=== PATIENT | male | born 1950 | race African-American/Black ===

== ENCOUNTER 2016-03-28 05:42 | Emergency (ER) | payer OTHER ==
[~2016-03-28] VITALS: Ht 182.9 cm; Wt 142.0 kg
[~2016-03-28 05:42] MED LIST: ATEN50TA PO; ATOR20TA38 PO; COU1 PO; FURO20TA3 PO; HYDR-902 PO; METH10TA2 PO; NIFE60TA12 PO; OMEP20CA16 PO; SENN-53 PO; TOPI-25 PO; TRAM50TA2 PO; WARF1TAB47 PO; WARF5TAB72 PO
[2016-03-28 05:50] VITALS: Ht 182.9 cm; Wt 142.0 kg
[2016-03-28] MEDS ORDERED: SOD CHLORIDE 0.9% 1,000 ML IV STA (07:11)
[2016-03-28] MEDS ORDERED: ONDANSETRON 4 MG INJ IV STA (07:11)
[2016-03-28] MEDS ORDERED: morphine 4 MG/ML VIAL IV STA (07:11)
--- NOTE | 2016-03-28 07:18 | ERD ---
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 Constipated for 1 day. No hematemesis or hematochezia. Denies dysuria, polyuria, hematuria or flank pain. No chest pain or palpitations. Denies shortness of breath or cough. No headache or neck pain. No relieving or exacerbating factors. No fevers or chills. ROS All systems reviewed and are negative except as per history of present illness. Medications Home Meds Active Scripts Tramadol HCl (Tramadol HCl) 50 Mg Tablet, 50 MG PO Q6 Y for PAIN, #20 TAB Prov:WILLIS PANTOJA MD 03/28/16 Metronidazole* (Flagyl*) 500 Mg Tablet, 500 MG PO QID for 10 Days, TAB Prov:WILLIS PANTOJA MD 03/28/16 Levofloxacin* (Levaquin*) 750 Mg Tablet, 750 MG PO DAILY for 10 Days, TAB Prov:WILLIS PANTOJA MD 03/28/16 Tramadol HCl (Tramadol HCl) 50 Mg Tablet, 50 MG PO TID for PAIN, #20 TAB Prov:BHARATI RASHID MD 02/07/16 Warfarin Sod (Coumadin) 1 Mg Tab, 1 MG PO DAILY, #30 TAB Prov:KM SON DO 01/16/16 Hydrocodone/Acetaminophen ([place] 10-325 Tablet) 1 Each Tablet, 1 TAB PO Q6H Y for PAIN, #7 TAB Prov:KM SON DO 01/16/16 Tramadol HCl (Tramadol HCl) 50 Mg Tablet, 50 MG PO BID, #12 TAB Prov:SHABBIR LANGLEY DO 01/11/16 Sennosides* (Senna Lax*) 8.6 Mg Tablet, 1 TAB PO BID for 10 Days, TAB Prov:SHABBIR LANGLEY DO 01/11/16 Reported Medications Warfarin Sodium* (Coumadin*) 1 Mg Tablet, 1 MG PO DAILY, TAB 01/16/16 Hydrocodone/Acetaminophen ([place] 10-325 Tablet) 1 Each Tablet, 1 EACH PO BID, TAB 01/09/16 Omeprazole* (Omeprazole*) 20 Mg Capsule.dr, 20 MG PO DAILY, #30 CAP 01/09/16 Topiramate* (Topiramate*) 100 Mg Tablet, 100 MG PO DAILY, TAB 01/09/16 Methadone Hcl* (Methadone*) 10 Mg Tab, 45 MG PO DAILY, TAB 08/05/15 Warfarin Sodium* (Coumadin*) 5 Mg Tablet, 5 MG PO DAILY, TAB 06/05/15 Nifedipine* (Nifedical XL*) 60 Mg/Bottle Tab.osm.24, 60 MG PO DAILY, TAB 05/15/14 Atorvastatin Calcium* (Atorvastatin Calcium*) 20 Mg Tablet, 20 MG PO HS, TAB 05/15/14 Furosemide* (Furosemide*) 20 Mg Tablet, 20 MG PO QAM, TAB 05/15/14 Atenolol* (Atenolol*) 50 Mg Tablet, 50 MG PO DAILY, TAB 05/15/14 Allergies Allergies: Coded Allergies: No Known Allergies (Verified Allergy, Mild, 01/16/16) PMhx/Soc Reviewed in chart. As per HPI. 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 Head: Atraumatic Eyes: Pupils equal reactive to light, extraocular movements are intact. Normal Conjunctiva ENT: Normal External Ears, Nose and Mouth. Neck: Full range of motion. Nontender. No JVD. No lymphadenopathy. Resp: Breath sounds are equal and clear to auscultation bilaterally. No rales rhonchi or wheezes Cardio: Regular rate and rhythm, no murmurs Abd: Soft, obese. Mild generalized tenderness that localizes to left lower quadrant. No rebound or guarding. No masses or abnormal pulsations. Bowel sounds are present. Skin: No petechiae or rashes Back: No midline or flank tenderness Ext: No cyanosis, or edema Neur: Awake and alert. Cranial nerves II through XII are grossly intact. No focal deficit observed. Psych: Patient appears anxious but not depressed. Result Diagram: 03/28/16 0958 03/28/16 0945 Results 24 hrs Laboratory Tests Test 03/28/16 08:27 03/28/16 09:45 03/28/16 09:58 Urine Bilirubin NEGATIVE Urine Clarity CLEAR Urine Color LT. YELLOW Urine Glucose NEGATIVE% Urine Hemoglobin NEGATIVE Urine Ketones NEGATIVE Urine Leukocyte Esterase NEGATIVE Urine Nitrite NEGATIVE Urine Specific [place] 1.010 Urine Total Protein NEGATIVE Urine Urobilinogen 0.2 E.U./dL Urine pH 7.0 Alanine Aminotransferase (ALT/SGPT) 25IU/L Albumin 3.4g/dl Albumin/Globulin Ratio 0.94 Alkaline Phosphatase 90IU/L Anion Gap 15 Aspartate Amino Transf (AST/SGOT) 15IU/L Blood Urea Nitrogen 14mg/dl Calcium Level 8.4mg/dl Carbon Dioxide Level 30mmol/L Chloride Level 101mmol/L Creatinine 1.04mg/dl Direct Bilirubin 0.00mg/dl Globulin 3.60g/dl Glucose Level 91mg/dl INR International Normalized Ratio 2.91 Indirect Bilirubin 0.0mg/dl Lipase 22U/L Potassium Level 3.5mmol/L Prothrombin Time 30.8Sec Prothrombin Time Ratio 2.4 Sodium Level 142mmol/L Total Bilirubin 0.0mg/dl Total Protein 7.0g/dl Basophils # 0.010^3/ul Basophils % 0.5% Blood Morphology Comment Eosinophils # 0.210^3/ul Eosinophils % 2.6% Hematocrit 29.8% Hemoglobin 10.0g/dl Lymphocytes # 2.410^3/ul Lymphocytes % 25.9% Mean Corpuscular Hemoglobin 25.0pg Mean Corpuscular Hemoglobin Concent 33.4g/dl Mean Corpuscular Volume 74.9fl Mean Platelet Volume 8.0fl Monocytes # 0.910^3/ul Monocytes % 10.1% Neutrophils # 5.710^3/ul Neutrophils % 60.9% Nucleated Red Blood Cells # 0.010^3/ul Nucleated Red Blood Cells % 0.0/100WBC Platelet Count 99109^3/UL Red Blood Count 3.9810^6/ul Red Cell Distribution Width 18.2% White Blood Count 9.310^3/ul Current Medications Medications (Trade) Dose Ordered Sig/Ash Route PRN Reason Start Time Stop Time Status Last Admin Dose Admin Sodium Chloride (NS) 1,000 ml @ 1,000 mls/hr Q1H STAT IV 03/28/16 07:11 03/28/16 08:10 DC 03/28/16 07:53 Morphine Sulfate (morphine) 4 mg ONCE STAT IV 03/28/16 07:11 03/28/16 07:13 DC 03/28/16 07:52 Ondansetron HCl (Zofran Inj) 4 mg ONCE STAT IV 03/28/16 07:11 03/28/16 07:13 DC 03/28/16 07:52 Levofloxacin (Levaquin) 750 mg ONCE ONCE PO 03/28/16 10:00 03/28/16 10:01 DC 03/28/16 10:19 Metronidazole (Flagyl) 500 mg ONCE ONCE PO 03/28/16 10:00 03/28/16 10:01 DC 03/28/16 10:19 IMAGING: PROCEDURE: CT Abdomen and Pelvis without contrast. CLINICAL INDICATION: Left lower quadrant pain. TECHNIQUE: CT scan of the abdomen and pelvis with and without contrast was performed on a multidetector high-resolution CT scanner. Coronal and sagittal reformatted images were obtained from the axial source images. The total exam CTDI equals 21.3 mGy and the total exam DLP equals 1333.4 mGy-cm. One or more of the following dose reduction techniques were utilized: Automated exposure control, adjustment of the mA and/or kV according to patient size, use of iterative reconstruction technique. COMPARISON: None. FINDINGS: CT abdomen: The lung bases are clear. The heart size is normal, without pericardial thickening or effusion. The liver is normal in size and density without focal mass or intrahepatic biliary dilatation. The eboni hepatis region is clear. The spleen is normal in size and homogeneous in density. The stomach is partially collapsed, but is grossly unremarkable. The pancreas as visualized is normal. The gallbladder surgically absent. No evidence of intra or extra hepatic biliary ductal dilatation. The adrenal glands are symmetric and normal. The kidneys demonstrate no parenchymal abnormality. No nephrolithiasis, hydronephrosis, or obstructive uropathy. The aorta is of normal caliber. Aortic vascular calcifications are present. There is no ascites, retroperitoneal, or mesenteric lymphadenopathy. The bowel and mesentery, as visualized, are equally unremarkable. CT pelvis: Normal appendix . Scattered sigmoid diverticulosis with tree surrounding soft tissue stranding in the proximal sigmoid colon suspicious for mild diverticulitis. No mural thickening, free fluid, or free air. The pelvic organs are normal. The pelvic sidewalls and inguinal regions are clear. No lymphadenopathy, free fluid , or mass. Bones: The surrounding osseous structures are remarkable for degenerative spondylosis of the spine. No osteolytic or osteoblastic lesion is detected. IMPRESSION: 1. Sigmoid diverticulosis with subtle rule. Colonic soft tissue stranding suspicious for mild early diverticulitis. No free air, free fluid or evidence of abscess. No bowel obstruction. 2. No lymphadenopathy, mass, ascites, 7 or obstructive uropathy. 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 IV access was difficult to obtain. CT without contrast reveals evidence of diverticulitis without abscess or perforation. No bowel obstruction, appendicitis or other acute intra-abdominal process. No criteria for systemic inflammatory response syndrome or sepsis. Stable for discharge with appropriate analgesics, oral antibiotics and urgent outpatient follow-up. Counseled patient regarding diagnostic workup, diagnosis and need for followup. Understands to return to ED if symptoms recur, worsen or any other concerns. Departure Diagnosis: Primary Impression: Acute abdominal pain in left lower quadrant Additional Impression: Acute diverticulitis Condition: Stable Patient Instructions: Diverticulitis, Understanding Diverticulosis and Diverticulitis WILLIS PANTOJA MD Mar 28, 2016 07:18
--- NOTE | 2016-03-28 09:23 | RADRPT ---
PROCEDURE: CT Abdomen and Pelvis without contrast. CLINICAL INDICATION: Left lower quadrant pain. TECHNIQUE: CT scan of the abdomen and pelvis with and without contrast was performed on a multidet bg high-resolution CT scanner. Coronal and sagittal reformatted images were obtained from the a xial source images. The total exam CTDI equals 21.3 mGy and the total exam DLP equals 1333.4 mGy-cm. One or more of the following dose reduction techniques were utilized: Automated exposure control, adjustment of the mA and/or kV according to patient size, use of iterative reconstruction technique. COMPARISON: None. FINDINGS: CT abdomen: The lung bases are clear. The heart size is normal, without pericardial thickening or effusion. Th e liver is normal in size and density without focal mass or intrahepatic biliary dilatation. The po rta hepatis region is clear. The spleen is normal in size and homogeneous in density. The stomach i s partially collapsed, but is grossly unremarkable. The pancreas as visualized is normal. The gallbladder surgically absent. No evidence of intra or extra hepatic biliary ductal dilatation. The adrenal glands are symmetric and normal. The kidneys demonstrate no parenchymal abnormality. No nephrolithiasis, hydronephrosis, or obstructi ve uropathy. The aorta is of normal caliber. Aortic vascular calcifications are present. There is no ascites, r etroperitoneal, or mesenteric lymphadenopathy. The bowel and mesentery, as visualized, are equally unremarkable. CT pelvis: Normal appendix . Scattered sigmoid diverticulosis with tree surrounding soft tissue stranding in the proximal sigmoid colon suspicious for mild diverticulitis. No mural thickening, free fluid, or free air. The pel ab organs are normal. The pelvic sidewalls and inguinal regions are clear. No lymphadenopathy, fr ee fluid, or mass. Bones: The surrounding osseous structures are remarkable for degenerative spondylosis of the spine. No ost eolytic or osteoblastic lesion is detected. IMPRESSION: 1. Sigmoid diverticulosis with subtle rule. Colonic soft tissue stranding suspicious for mild eva y diverticulitis. No free air, free fluid or evidence of abscess. No bowel obstruction. 2. No lymphadenopathy, mass, ascites, 7 or obstructive uropathy. RPTAT: PP J Port, Physician Date Time Electronically viewed and signed by Aleks Hankins Physician on 03/28/2016 09:23 JAKE/
[2016-03-28] MEDS ORDERED: LEVOFLOXACIN 750 MG TABLET PO ONE (10:00)
[2016-03-28] MEDS ORDERED: metroNIDAZOLE 500 MG TAB PO ONE (10:00)
[2016-03-28 10:14] LABS: BASOPHILS % 0.5 % (0.0-2.0); EOSINOPHILS # 0.2 10^3/ul (0.0-0.5); EOSINOPHILS % 2.6 % (0.0-7.0); HEMATOCRIT 29.8 % (42.0-52.0); LYMPHOCYTES # 2.4 10^3/ul (0.8-2.9); LYMPHOCYTES % 25.9 % (15.0-51.0); MEAN CORPUSCULAR HGB CONC 33.4 g/dl (32.0-37.0); MEAN CORPUSCULAR VOLUME 74.9 fl (82.0-101.0); MONOCYTE # 0.9 10^3/ul (0.3-0.9); MONOCYTES % 10.1 % (0.0-11.0); NEUTROPHIL # 5.7 10^3/ul (1.6-7.5); NEUTROPHILS % 60.9 % (39.0-77.0); PLATELET COUNT 299 10^3/UL (140-440); RED BLOOD COUNT 3.98 10^6/ul (4.70-6.10); RED CELL DISTRIBUTION WIDTH 18.2 % (11.5-14.5); UNCORRECTED WBC 9.3 10^3/ul (4.8-10.8); WHITE BLOOD COUNT 9.3 10^3/ul (4.8-10.8)
[2016-03-28 10:15] LABS: INR 2.91; PROTIME 30.8 Sec (12.2-14.2); PT RATIO 2.4
[2016-03-28 10:16] LABS: ADD UMIC NO; URINE BILIRUBIN (Dip) NEGATIVE (NEGATIVE); URINE BLOOD (Dip) NEGATIVE (NEGATIVE); URINE COLOR LT. YELLOW (YELLOW); URINE GLUCOSE (Dip) NEGATIVE (NEGATIVE); URINE KETONES (Dip) NEGATIVE (NEGATIVE); URINE LEUKOCYTE ESTERASE (Dip) NEGATIVE (NEGATIVE); URINE NITRITE (Dip) NEGATIVE (NEGATIVE); URINE TOTAL PROTEIN (Dip) NEGATIVE (NEGATIVE); URINE UROBILINOGEN (Dip) 0.2 E.U./dL (0.1-1.0)
[2016-03-28 10:18] LABS: ALBUMIN 3.4 g/dl (3.3-4.9); POTASSIUM 3.5 mmol/L (3.5-5.1)
[2016-03-28 10:19] LABS: CONDITION 1; LH ANALYZER COMMENTS 1
[2016-03-28 10:20] LABS: CREATININE 1.04 mg/dl (0.61-1.24)
[2016-03-28 10:21] LABS: ALBUMIN/GLOBULIN RATIO 0.94; CALCIUM 8.4 mg/dl (8.4-10.2)
[2016-03-28] MEDS ORDERED: TRAM50TA2 PO (10:25)
[2016-03-28] MEDS ORDERED: METR500T PO (10:25)
[2016-03-28] MEDS ORDERED: LEVO750T25 PO (10:25)
[2016-03-28] MEDS ORDERED: ONDA4TAB8 PO (10:31)
[2016-03-28 10:49] VITALS: BP 11/63; PULSE 78; RESP 16; TEMP 98.6
== END 2016-03-28 10:52 | disposition home or self-care (01) ==
LOC: E/R 05:42
DX: R10.32 Left lower quadrant pain (principal); I10 Essential (primary) hypertension; E11.9 Type 2 diabetes mellitus without complications; K57.92 Diverticulitis of intestine, part unspecified, without perforation or abscess without bleeding; F17.210 Nicotine dependence, cigarettes, uncomplicated; R11.0 Nausea; I50.9 Heart failure, unspecified; Z79.01 Long term (current) use of anticoagulants
CPT/HCPCS: 74176; 80053; 81003; 83690; 85025; 85610; J2270; J2405; J7030; Z7610; 96374; 96375

== ENCOUNTER 2016-04-02 20:47 | Inpatient (IN) | payer OTHER ==
[~2016-04-02] VITALS: Ht 182.9 cm; Wt 123.0 kg
[~2016-04-02 20:47] MED LIST changes: +LEVO750T25 PO; +METR500T PO; +ONDA4TAB8 PO; -WARF1TAB47 PO
[2016-04-02 21:19] VITALS: Ht 182.9 cm; Wt 123.0 kg
[2016-04-03] MEDS ORDERED: ONDANSETRON 4 MG INJ IV STA (05:41)
[2016-04-03] MEDS ORDERED: morphine 4 MG/ML VIAL IV STA (05:41)
--- NOTE | 2016-04-03 07:19 | RADRPT ---
PROCEDURE: Chest. CLINICAL INDICATION: Shortness of breath. TECHNIQUE: Single frontal view of the chest was obtained. COMPARISON: 09/21/2012. FINDINGS: The cardiac silhouette is magnified. The aortic arch is uncoiled. There is no focal consolidation, vascular congestion or pleural effusion. There is no pneumothorax. IMPRESSION: No evidence for active cardiopulmonary disease. .Casa Dent MD, Date Time Electronically viewed and signed by .Casa Detn MD, on 04/03/2016 07:19 .T/
[2016-04-03 07:48] LABS: ALBUMIN 3.4 g/dl (3.3-4.9)
[2016-04-03 07:49] LABS: POTASSIUM 3.6 mmol/L (3.5-5.1)
[2016-04-03 07:51] LABS: BILIRUBIN,INDIRECT 0.2 mg/dl (0-1.1); BILIRUBIN,TOTAL 0.2 mg/dl (0.2-1.3); CREATININE 1.43 mg/dl (0.61-1.24); TOTAL PROTEIN 6.8 g/dl (6.1-8.1)
[2016-04-03 07:52] LABS: CALCIUM 8.6 mg/dl (8.4-10.2)
[2016-04-03 07:54] LABS: BASOPHILS % 0.4 % (0.0-2.0); EOSINOPHILS % 1.8 % (0.0-7.0); HEMATOCRIT 33.8 % (42.0-52.0); HEMOGLOBIN 10.5 g/dl (14.0-18.0); LYMPHOCYTES % 25.9 % (15.0-51.0); MEAN CORPUSCULAR HEMOGLOBIN 24.7 pg (29.0-33.0); MEAN CORPUSCULAR HGB CONC 31.1 g/dl (32.0-37.0); MEAN CORPUSCULAR VOLUME 79.5 fl (82.0-101.0); MEAN PLATELET VOLUME 9.6 fl (7.4-10.4); MONOCYTES % 10.7 % (0.0-11.0); PLATELET COUNT 309 10^3/UL (140-440); RED BLOOD COUNT 4.25 10^6/ul (4.70-6.10); RED CELL DISTRIBUTION WIDTH 17.8 % (11.5-14.5); UNCORRECTED WBC 10.4 10^3/ul (4.8-10.8); WHITE BLOOD COUNT 10.4 10^3/ul (4.8-10.8)
[2016-04-03 07:55] LABS: EOSINOPHILS # 0.2 10^3/ul (0.0-0.5); LYMPHOCYTES # 2.7 10^3/ul (0.8-2.9); MONOCYTE # 1.1 10^3/ul (0.3-0.9); NEUTROPHIL # 6.4 10^3/ul (1.6-7.5)
[2016-04-03 08:03] LABS: TROPONIN-I 0.017 ng/ml (0.00-0.12)
--- NOTE | 2016-04-03 08:35 | ERA ---
ER Documentation Chief Complaint Date/Time DATE: 04/03/16 TIME: 08:32 Chief Complaint chest pain x 1 day, dizziness, diffuse abd pain HPI 65-year-old male presents to the emergency department with multiple complaints. He is a somewhat difficult historian. I have reviewed old records and the patient as well. Patient is a long-standing history of chronic intermittent abdominal pain. He states that he was seen a few days ago and diagnosed with early diverticulitis. He has been taking his antibiotics. Despite this, he continues to have abdominal pain. However, the abdominal pain is chronic. His new complaint is that he is having nonspecific discomfort in the left side of his chest. This is spontaneous, nonradiating, nonexertional described as moderate. ROS All systems reviewed and are negative except as per history of present illness. Medications Home Meds Active Scripts Ondansetron Hcl* (Zofran*) 4 Mg Tablet, 4 MG PO Q6H for NAUSEA AND/OR VOMITING, #15 TAB Prov:WILLIS PANTOJA MD 03/28/16 Tramadol HCl (Tramadol HCl) 50 Mg Tablet, 50 MG PO Q6 Y for PAIN, #20 TAB Prov:WILLIS PANTOJA MD 03/28/16 Metronidazole* (Flagyl*) 500 Mg Tablet, 500 MG PO QID for 10 Days, TAB Prov:WILLIS PANTOJA MD 03/28/16 Levofloxacin* (Levaquin*) 750 Mg Tablet, 750 MG PO DAILY for 10 Days, TAB Prov:WILLIS PANTOJA MD 03/28/16 Tramadol HCl (Tramadol HCl) 50 Mg Tablet, 50 MG PO TID for PAIN, #20 TAB Prov:BHARATI RASHID MD 02/07/16 Warfarin Sod (Coumadin) 1 Mg Tab, 1 MG PO DAILY, #30 TAB Prov:KM SON DO 01/16/16 Hydrocodone/Acetaminophen ([place] 10-325 Tablet) 1 Each Tablet, 1 TAB PO Q6H Y for PAIN, #7 TAB Prov:KM SON DO 01/16/16 Tramadol HCl (Tramadol HCl) 50 Mg Tablet, 50 MG PO BID, #12 TAB Prov:SHABBIR LANGLEY DO 01/11/16 Sennosides* (Senna Lax*) 8.6 Mg Tablet, 1 TAB PO BID for 10 Days, TAB Prov:SHABBIR LANGLEY DO 01/11/16 Reported Medications Hydrocodone/Acetaminophen ([place] 10-325 Tablet) 1 Each Tablet, 1 EACH PO BID, TAB 01/09/16 Omeprazole* (Omeprazole*) 20 Mg Capsule.dr, 20 MG PO DAILY, #30 CAP 01/09/16 Topiramate* (Topiramate*) 100 Mg Tablet, 100 MG PO DAILY, TAB 01/09/16 Methadone Hcl* (Methadone*) 10 Mg Tab, 45 MG PO DAILY, TAB 08/05/15 Warfarin Sodium* (Coumadin*) 5 Mg Tablet, 5 MG PO DAILY, TAB 06/05/15 Nifedipine* (Nifedical XL*) 60 Mg/Bottle Tab.osm.24, 60 MG PO DAILY, TAB 05/15/14 Atorvastatin Calcium* (Atorvastatin Calcium*) 20 Mg Tablet, 20 MG PO HS, TAB 05/15/14 Furosemide* (Furosemide*) 20 Mg Tablet, 20 MG PO QAM, TAB 05/15/14 Atenolol* (Atenolol*) 50 Mg Tablet, 50 MG PO DAILY, TAB 05/15/14 Discontinued Reported Medications Warfarin Sodium* (Coumadin*) 1 Mg Tablet, 1 MG PO DAILY, TAB 01/16/16 Allergies Allergies: Coded Allergies: No Known Allergies (Verified Allergy, Mild, 03/28/16) PMhx/Soc History of Surgery: Yes (cholecystectomy) Anesthesia Reaction: No Hx Neurological Disorder: No Hx Respiratory Disorders: No Hx Cardiac Disorders: Yes (htn, HEART FAILURE) Hx Psychiatric Problems: No Hx Miscellaneous Medical Probl: Yes (DM, diverticulitis) Hx Alcohol Use: No 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 EOMI. There is no scleral icterus. NECK: C-spine is soft and supple, there is no meningismus. There is no cervical lymphadenopathy. LUNGS: Clear to auscultation bilaterally. There are no rales, wheezes or rhonchi. HEART: Regular rate and rhythm, no murmurs, clicks, rubs or gallops. ABDOMEN: Soft, non-tender, non-distended. There are bowel sounds in all four quadrants. No rebound or guarding. EXTREMITIES: There is no peripheral cyanosis or edema. No focal swelling or erythema. NEURO: The patient moves all four extremities with 5/5 strength. Cranial nerves II - XII are intact. Normal gait. Alert and oriented SKIN: There is no apparent rash or petechiae. HEME/LYMPHATIC: There is no evidence of excessive bruising or lymphedema. PSYCHIATRIC: The patient does not appear anxious or depressed. Result Diagram: 04/03/1671904/03/1620 Results 24 hrs Laboratory Tests Test 04/03/16 07:20 Alanine Aminotransferase (ALT/SGPT) 22IU/L Albumin 3.4g/dl Albumin/Globulin Ratio 1.00 Alkaline Phosphatase 84IU/L Anion Gap 16 Aspartate Amino Transf (AST/SGOT) 19IU/L B-Type Natriuretic Peptide 246PG/ML Basophils # 0.010^3/ul Basophils % 0.4% Blood Urea Nitrogen 14mg/dl Calcium Level 8.6mg/dl Carbon Dioxide Level 24mmol/L Chloride Level 103mmol/L Creatinine 1.43mg/dl Direct Bilirubin 0.00mg/dl Eosinophils # 0.210^3/ul Eosinophils % 1.8% Globulin 3.40g/dl Glucose Level 103mg/dl Hematocrit 33.8% Hemoglobin 10.5g/dl Indirect Bilirubin 0.2mg/dl Lipase 25U/L Lymphocytes # 2.710^3/ul Lymphocytes % 25.9% Mean Corpuscular Hemoglobin 24.7pg Mean Corpuscular Hemoglobin Concent 31.1g/dl Mean Corpuscular Volume 79.5fl Mean Platelet Volume 9.6fl Monocytes # 1.110^3/ul Monocytes % 10.7% Neutrophils # 6.410^3/ul Neutrophils % 61.0% Nucleated Red Blood Cells # 0.010^3/ul Nucleated Red Blood Cells % 0.0/100WBC Platelet Count 56215^3/UL Potassium Level 3.6mmol/L Red Blood Count 4.2510^6/ul Red Cell Distribution Width 17.8% Sodium Level 139mmol/L Total Bilirubin 0.2mg/dl Total Protein 6.8g/dl Troponin I 0.017ng/ml White Blood Count 10.410^3/ul Current Medications Medications (Trade) Dose Ordered Sig/Ash Route PRN Reason Start Time Stop Time Status Last Admin Dose Admin Morphine Sulfate (morphine) 4 mg ONCE STAT IV 04/03/16 05:41 04/03/16 05:42 DC 04/03/16 06:44 Ondansetron HCl (Zofran Inj) 4 mg ONCE STAT IV 04/03/16 05:41 04/03/16 05:42 DC 04/03/16 06:44 Procedures/MDM Patient was taken to a room, seen and evaluated. Comfort measures were initiated. Diagnostic tests were ordered and reviewed. 3 LEAD RHYTHM STRIP: Normal sinus rhythm without ectopy EK lead EKG reviewed by myself: Normal Sinus Rhythm with PACs and PVCs Normal [place] and intervals Nonspecific ST and T-wave changes without ST elevation or depression Impression: Nonspecific EKG RADIOLOGY: reviewed with the radiologist CONSULTATION: hospitalist was notified for admission REEVALUATION: Patient remains with discomfort in his chest. However, he has remained hemodynamically stable MEDICAL DECISION MAKIN-year-old male with a number of chronic abdominal pain issues presents the emergency department now with chest pain. Overall, it is difficult to assess what is chronic and what is acute pain but given the patient's risk factors, patient will require admission to the hospital for observation of his discomforts with further evaluation to rule out myocardial infarction and further observation. Departure Diagnosis: Primary Impression: Chronic pain Additional Impression: Chest pain CHIARA MCCLOUD Apr 03, 2016 08:35
[2016-04-03] MEDS ORDERED: APIX2.5T PO ×2 (08:58→09:19)
[2016-04-03] MEDS ORDERED: ASPIRIN 325 MG TAB PO ONE (09:00)
[2016-04-03] MEDS ORDERED: MECL-77 PO (09:20)
[2016-04-03] MEDS ORDERED: MECLIZINE 25 MG TAB PO PRN (10:00)
[2016-04-03] MEDS ORDERED: HYDROCODONE/APAP (5/325) TAB PO PRN (10:00)
[2016-04-03] MEDS ORDERED: NACL 0.9% 3 ML SYG IV SCH (10:00)
[2016-04-03] MEDS ORDERED: NITROGLYCERIN (SL) 0.4 MG TAB SL PRN (10:00)
[2016-04-03] MEDS ORDERED: ACETAMINOPHEN 650 MG SUPP PR PRN (10:00)
[2016-04-03 10:01] LABS: ADD UMIC YES; URINE BILIRUBIN (Dip) NEGATIVE (NEGATIVE); URINE BLOOD (Dip) NEGATIVE (NEGATIVE); URINE COLOR LT. YELLOW (YELLOW); URINE GLUCOSE (Dip) NEGATIVE (NEGATIVE); URINE KETONES (Dip) NEGATIVE (NEGATIVE); URINE LEUKOCYTE ESTERASE (Dip) TRACE (NEGATIVE); URINE NITRITE (Dip) NEGATIVE (NEGATIVE); URINE TOTAL PROTEIN (Dip) NEGATIVE (NEGATIVE); URINE UROBILINOGEN (Dip) 0.2 E.U./dL (0.1-1.0)
[2016-04-03 10:26] LABS: BACTERIA,URINE RARE; URINE RBCS NONE SEEN /HPF (0)
[2016-04-03 12:31] LABS: CREATINE KINASE 130 IU/L (23-200)
[2016-04-03 12:54] LABS: CK-MB 1.57 ng/ml (0.0-2.4); TROPONIN-I < 0.012 ng/ml (0.00-0.12)
[2016-04-03] MEDS: morphine 2 MG INJ IV PRN (12:55)
[2016-04-03] MEDS: HYDROCODONE/APAP (5/325) TAB PO PRN (15:09)
[2016-04-03 16:02] VITALS: TEMP 98.1
--- NOTE | 2016-04-03 16:44 | HP ---
Date/Time of Note Date/Time of Note DATE: 04/03/16 TIME: 16:35 Assessment/Plan VTE Prophylaxis VTE Prophylaxis Intervention: SCD's Assessment/Plan Chief Complaint/Hosp Course Impression and plan 1. Abdominal pain. Patient with CT scan with suspect early diverticulitis on . We'll resume ciprofloxacin and Flagyl for now. We'll get manager aerospace following. May need possible endoscopy. 2. Reported chest pain. Atypical. We'll follow up on serial troponins. We'll check echocardiogram. 3.Essential hypertension. We'll continue on antihypertensives and adjust as needed 4. Dyslipidemia. Continue on statin medication. Follow up on fasting lipid panel 5. History of CHF. Follow-up on echocardiogram. Continue on diuretic therapy. Of note chest x-ray showed no acute cardiopulmonary process 6. Acute on likely chronic kidney disease. Patient noted with slightly elevated creatinine level. We'll continue with gentle IV hydration. We'll follow up on renal panel. We'll get spanner operator pending patient's clinical course Admission process time is 40 minutes Discussed plan of car with Dr. Amaral Problems: HPI/ROS Admit Date/Time Admit Date/Time Hx of Present Illness This is a 65-year-old male with history of CHF, type 2 diabetes, dyslipidemia, hypertension, reported CVA 3 years ago with no residual deficit, cholecystectomy , who came to [facility] due to reports of abdominal pain. According to the patient had been having abdominal pain for 3 months duration. He did report having some abdominal distention with associated nausea and eructation with also intermittent diarrhea and constipation. He reported symptoms were nonspecific. He did report that his abdominal pain however in the past 2 days had subsequently gotten worse to the point he had difficulty with swallowing food that he came to [facility] for further evaluation.Of note, patient was recently at [facility] 2016, for similar presentation. At that time get a CT scan of his abdomen that did show sigmoid diverticulosis and colonic soft tissue stranding suspicious for mild early diverticulitis. He did report he was taking antibiotics for recent continue to have some abdominal discomfort. He reports this was a C manager aerospace but has not been summarized seen at this time yet. He did say he had a colonoscopy roughly 1-2 years ago but does not oh results. He currently states he has some abdominal discomfort does go to his chest at times. When asked about his chest pain. Reported it was burning-like in nature and 5-6 out of 10 in intensity. He denied any radiation of chest pain or shortness of breath associated with it. He was also seen with acute kidney injury with creatinine at 1.43. He did have slight elevation in BNP at 246. We will evaluate him for the aforementioned issues. ROS 12 point review of systems obtained and entirely negative except that mentioned in history of present illness PMH/Family/Social Past Medical History CHF, type 2 diabetes, dyslipidemia, hypertension, reported CVA 3 years ago with no residual deficit, cholecystectomy Family History Significant Family History: no pertinent family hx Social History Alcohol Use: none Smoking Status: Unknown if ever smoked Drug Use: none Exam/Review of Systems Vital Signs Vitals Vital Signs Date Time Temp Pulse Resp B/P Pulse Ox O2 Delivery O2 Flow Rate FiO2 04/03/16 16:02 98.1 78 18 109/60 97 Room Air Exam Exam General: No acute signs or symptoms of distress Eyes: pupils equal round, Anicteric sclera Neck: Supple nontender, no JVD Cardiac: S1, S2 auscultated, regular rhythm and rate Pulmonary: No coarse rhonchi or breathing auscultated GI: Mildly tender upon palpation Extremities: No edema bilateral lower extremities Skin: Clean dry and intact Neurologic: Alert to person place and time and situation Labs Result Diagram: 04/03/16 0720 04/03/16 0720 Medications Medications Current Medications Apixaban (Eliquis) 2.5 mg BID PO ; Start 04/03/16 at 21:00 Atorvastatin Calcium (Lipitor) 20 mg HS PO ; Start 04/03/16 at 21:00 Furosemide (Lasix) 20 mg QAM PO ; Start 04/04/16 at 09:00 Meclizine HCl (Antivert) 12.5 mg Q8H PRN PO DIZZINESS; Start 04/03/16 at 10:00 Methadone HCl (Methadone) 45 mg DAILY PO ; Start 04/04/16 at 09:00; Status UNV Nifedipine (Procardia Xl) 60 mg DAILY PO ; Start 04/04/16 at 09:00 Ondansetron HCl (Zofran Inj) 4 mg Q6H PRN IV NAUSEA AND/OR VOMITING; Start 04/03 at 10:00 Acetaminophen (Tylenol Tab) 650 mg Q6H PRN PO PAIN LEVEL 1-3 OR FEVER; Start at 10:00 Acetaminophen (Tylenol Supp) 650 mg Q6H PRN [place] PAIN LEVEL 1-3 OR FEVER; Start 04/03/16 at 10:00 Acetaminophen/ Hydrocodone Bitart ([place] (5/325)) 1 tab Q6H PRN PO MODERATE PAIN LEVEL 4-6; Start 04/03/16 at 10:00 Acetaminophen/ Hydrocodone Bitart ([place] (5/325)) 2 tab Q6H PRN PO SEVERE PAIN LEVEL 7-10 Last administered on 04/03/16 15:09; Admin Dose 2 TAB; Start 04/03/16 at 10:00 Morphine Sulfate (morphine) 2 mg Q4H PRN IV SEVERE PAIN LEVEL 7-10 Last administered on 04/03/16 12:55; Admin Dose 2 MG; Start 04/03/16 at 10:00 Famotidine (Pepcid Iv) 20 mg Q12 IV ; Start 04/03/16 at 21:00 Aspirin (Aspirin) 81 mg DAILY PO ; Start 04/05/16 at 09:00 Nitroglycerin 1 tab 1 tab Q5M PRN SL CHEST PAIN; Start 04/03/16 at 10:00 Sodium Chloride (NS) 1,000 ml @ 75 mls/hr [id number] IV ; Start 04/03/16 at 17:00; Status MARKY MCCLOUD Apr 03, 2016 16:44
[2016-04-03] MEDS: SOD CHLORIDE 0.9% 1,000 ML IV SCH (17:52)
[2016-04-03 17:57] LABS: CREATINE KINASE 121 IU/L (23-200)
[2016-04-03 18:07] LABS: CK-MB 1.34 ng/ml (0.0-2.4)
[2016-04-03 18:10] LABS: TROPONIN-I < 0.012 ng/ml (0.00-0.12)
[2016-04-03 20:20] VITALS: BP 143/72; PULSE 70; RESP 18
[2016-04-03 20:40] VITALS: PULSE 69
[2016-04-03] MEDS: FAMOTIDINE 20 MG INJ IV SCH (21:16)
[2016-04-03] MEDS: metroNIDAZOLE 500 MG TAB PO SCH (21:16)
[2016-04-03] MEDS: ATORVASTATIN 20 MG TAB PO SCH (21:16)
[2016-04-03] MEDS: APIXABAN 5 MG TABLET PO SCH (21:16)
[2016-04-03 21:18] VITALS: BP 143/72; RESP 18
[2016-04-04] VITALS (12 sets, daily range): BP systolic 111–135; BP diastolic 56–76; PULSE 63–90; RESP 18
[2016-04-04] MEDS: SOD CHLORIDE 0.9% 1,000 ML IV SCH ×2 (05:14→20:46)
[2016-04-04 09:41] LABS: BASOPHILS % 0.3 % (0.0-2.0); EOSINOPHILS # 0.1 10^3/ul (0.0-0.5); EOSINOPHILS % 0.8 % (0.0-7.0); HEMATOCRIT 34.9 % (42.0-52.0); HEMOGLOBIN 11.3 g/dl (14.0-18.0); LYMPHOCYTES % 21.6 % (15.0-51.0); MEAN CORPUSCULAR HGB CONC 32.5 g/dl (32.0-37.0); MEAN CORPUSCULAR VOLUME 76.9 fl (82.0-101.0); MEAN PLATELET VOLUME 8.2 fl (7.4-10.4); MONOCYTE # 0.3 10^3/ul (0.3-0.9); MONOCYTES % 3.7 % (0.0-11.0); NEUTROPHIL # 6.7 10^3/ul (1.6-7.5); NEUTROPHILS % 73.6 % (39.0-77.0); PLATELET COUNT 317 10^3/UL (140-440); RED BLOOD COUNT 4.53 10^6/ul (4.70-6.10); RED CELL DISTRIBUTION WIDTH 18.9 % (11.5-14.5); UNCORRECTED WBC 9.2 10^3/ul (4.8-10.8); WHITE BLOOD COUNT 9.2 10^3/ul (4.8-10.8)
[2016-04-04 09:54] LABS: ALBUMIN 3.5 g/dl (3.3-4.9)
[2016-04-04] MEDS: metroNIDAZOLE 500 MG TAB PO SCH ×4 (09:54→20:45)
[2016-04-04] MEDS: FUROSEMIDE 20 MG TAB PO SCH (09:54)
[2016-04-04] MEDS: NIFEdipine (XL) 60 MG TAB PO SCH (09:54)
[2016-04-04] MEDS: LEVOFLOXACIN 750 MG TABLET PO SCH (09:54)
[2016-04-04 09:55] LABS: POTASSIUM 3.6 mmol/L (3.5-5.1)
[2016-04-04] MEDS: FAMOTIDINE 20 MG INJ IV SCH ×2 (09:55→20:51)
[2016-04-04] MEDS: ONDANSETRON 4 MG INJ IV PRN (09:55)
[2016-04-04] MEDS: APIXABAN 5 MG TABLET PO SCH ×2 (09:55→20:45)
[2016-04-04 09:57] LABS: BILIRUBIN,INDIRECT 0.4 mg/dl (0-1.1); BILIRUBIN,TOTAL 0.4 mg/dl (0.2-1.3); CREATININE 1.11 mg/dl (0.61-1.24)
[2016-04-04 09:58] LABS: CALCIUM 8.5 mg/dl (8.4-10.2); CHOL/HDL RATIO 3.3 RATIO; PHOSPHORUS 2.6 mg/dl (2.5-4.9)
[2016-04-04 09:59] LABS: CONDITION 1; LH ANALYZER COMMENTS 1
[2016-04-04 10:04] LABS: T3 UPTAKE 35.6 % (23.5-40.5)
[2016-04-04 10:18] LABS: THYROID STIMULATING HORMONE 0.693 MIU/L (0.465-4.680)
[2016-04-04] MEDS ORDERED: METHADONE 10 MG TAB PO ONE (11:30)
--- NOTE | 2016-04-04 13:13 | PN ---
Date/Time of Note Date/Time of Note DATE: 04/04/16 TIME: 13:11 Assessment/Plan VTE Prophylaxis VTE Prophylaxis Intervention: SCD's Lines/Catheters IV C[facility]ter Type (from [facility]): Saline Lock Urinary Cath still in place: No Assessment/Plan Chief Complaint/Hosp Course Impression and plan 1. Abdominal pain. Patient with CT scan with suspect early diverticulitis on . We'll resume ciprofloxacin and Flagyl for now. Forest Fire Prevention Manager to follow 2. Reported chest pain. Atypical. We'll follow-up on echo cardiac exam. So troponins negative thus far. Denies any chest pain. We'll monitor 3.Essential hypertension. We'll continue on antihypertensives and adjust as needed 4. Dyslipidemia. Continue on statin medication. Follow up on fasting lipid panel 5. History of CHF. Follow-up on echocardiogram. Continue on diuretic therapy. Of note chest x-ray showed no acute cardiopulmonary process 6. Acute on likely chronic kidney disease. Patient noted with slightly elevated creatinine level. We'll continue with gentle IV hydration. We'll follow up on renal panel. We'll get metallurgical technician pending patient's clinical course Disposition and plan: Continue antibiotics for now. Forest Fire Prevention Manager follow- up. Will await recommendations. Discussed plan of car with Dr. Amaral Problems: Subjective 24 Hr Interval Summary Free Text/Dictation Still with reported abdominal discomfort and difficulty with swallowing. Exam/Review of Systems Vital Signs Vitals Vital Signs Date Time Temp Pulse Resp B/P Pulse Ox O2 Delivery O2 Flow Rate FiO2 04/04/16 13:10 86 04/04/16 11:15 97.8 18 125/68 95 04/03/16 20:20 Room Air Intake and Output 04/03/16 04/03/16 04/04/16 15:00 23:00 07:00 Intake Total 1075 ml Output Total 2 ml Balance 1073 ml Exam General: No acute signs or symptoms of distress Eyes: pupils equal round, Anicteric sclera Neck: Supple nontender, no JVD Cardiac: S1, S2 auscultated, regular rhythm and rate Pulmonary: No coarse rhonchi or breathing auscultated GI: Mildly tender upon palpation Extremities: No edema bilateral lower extremities Skin: Clean dry and intact Neurologic: Alert to person place and time and situation Results Result Diagram: 04/04/1692204/04/16 0923 Results 24 hrs Laboratory Tests Test 04/03/16 15:50 04/04/16 09:23 Creatine Kinase 121 Creatine Kinase Index 1.1 Creatinine Kinase MB (Mass) 1.34 Troponin I < 0.012 Alanine Aminotransferase (ALT/SGPT) 21 Albumin 3.5 Albumin/Globulin Ratio 1.00 Alkaline Phosphatase 86 Anion Gap 18 H Aspartate Amino Transf (AST/SGOT) 20 Basophils # 0.0 Basophils % 0.3 Blood Morphology Comment Blood Urea Nitrogen 13 Calcium Level 8.5 Carbon Dioxide Level 22 Chloride Level 105 Cholesterol Level 84 L Cholesterol/HDL Ratio 3.3 Creatinine 1.11 Direct Bilirubin 0.00 Eosinophils # 0.1 Eosinophils % 0.8 Free Thyroxine Index 2.95 Globulin 3.50 H Glucose Level 145 # HDL Cholesterol 25 L Hematocrit 34.9 L Hemoglobin 11.3 L Hemoglobin A1c 5.7 Indirect Bilirubin 0.4 LDL Cholesterol, Calculated 31 Lymphocytes # 2.0 Lymphocytes % 21.6 Magnesium Level 2.0 Mean Corpuscular Hemoglobin 25.0 L Mean Corpuscular Hemoglobin Concent 32.5 Mean Corpuscular Volume 76.9 L Mean Platelet Volume 8.2 Monocytes # 0.3 Monocytes % 3.7 Neutrophils # 6.7 Neutrophils % 73.6 Nucleated Red Blood Cells # 0.0 Nucleated Red Blood Cells % 0.0 Phosphorus Level 2.6 Platelet Count 317 Potassium Level 3.6 Red Blood Count 4.53 L Red Cell Distribution Width 18.9 H Sodium Level 141 Thyroid Stimulating Hormone (TSH) 0.693 Thyroxine (T4) 8.3 Total Bilirubin 0.4 Total Protein 7.0 Triglycerides Level 141 Triiodothyronine (T3) Uptake 35.6 White Blood Count 9.2 Medications Medications Current Medications Apixaban (Eliquis) 2.5 mg BID PO Last administered on 04/04/16 09:55; Admin Dose 2.5 MG; Start 04/03/16 at 21:00 Atorvastatin Calcium (Lipitor) 20 mg HS PO Last administered on 04/03/16 21:16 ; Admin Dose 20 MG; Start 04/03/16 at 21:00 Furosemide (Lasix) 20 mg QAM PO Last administered on 04/04/16 09:54; Admin Dose 20 MG; Start 04/04/16 at 09:00 Meclizine HCl (Antivert) 12.5 mg Q8H PRN PO DIZZINESS; Start 04/03/16 at 10:00 Methadone HCl (Methadone) 45 mg DAILY PO ; Start 04/04/16 at 09:00; Status UNV Nifedipine (Procardia Xl) 60 mg DAILY PO Last administered on 04/04/16 09:54; Admin Dose 60 MG; Start 04/04/16 at 09:00 Ondansetron HCl (Zofran Inj) 4 mg Q6H PRN IV NAUSEA AND/OR VOMITING Last administered on 04/04/16 09:55; Admin Dose 4 MG; Start 04/03/16 at 10:00 Acetaminophen (Tylenol Tab) 650 mg Q6H PRN PO PAIN LEVEL 1-3 OR FEVER; Start at 10:00 Acetaminophen (Tylenol Supp) 650 mg Q6H PRN [place] PAIN LEVEL 1-3 OR FEVER; Start 04/03/16 at 10:00 Acetaminophen/ Hydrocodone Bitart ([place] (5/325)) 1 tab Q6H PRN PO MODERATE PAIN LEVEL 4-6; Start 04/03/16 at 10:00 Acetaminophen/ Hydrocodone Bitart ([place] (5/325)) 2 tab Q6H PRN PO SEVERE PAIN LEVEL 7-10 Last administered on 04/03/16 15:09; Admin Dose 2 TAB; Start 04/03/16 at 10:00 Morphine Sulfate (morphine) 2 mg Q4H PRN IV SEVERE PAIN LEVEL 7-10 Last administered on 04/03/16 12:55; Admin Dose 2 MG; Start 04/03/16 at 10:00 Famotidine (Pepcid Iv) 20 mg Q12 IV Last administered on 04/04/16 09:55; Admin Dose 20 MG; Start 04/03/16 at 21:00 Aspirin (Aspirin) 81 mg DAILY PO ; Start 04/05/16 at 09:00 Nitroglycerin 1 tab 1 tab Q5M PRN SL CHEST PAIN; Start 04/03/16 at 10:00 Sodium Chloride (NS) 1,000 ml @ 75 mls/hr [id number] IV Last administered on 05:14; Admin Dose 75 MLS/HR; Start 04/03/16 at 17:00 Levofloxacin (Levaquin) 750 mg DAILY PO Last administered on 04/04/16 09:54; Admin Dose 750 MG; Start 04/04/16 at 09:00 Metronidazole (Flagyl) 500 mg QID PO Last administered on 04/04/16t 12:42; Admin Dose 500 MG; Start 04/03/16 at 21:00 MARKY BEST Apr 04, 2016 13:13
[2016-04-04] MEDS: ACETAMINOPHEN 325 MG TAB PO PRN (17:24)
--- NOTE | 2016-04-04 19:23 | RADRPT ---
Echocardiogram Report Patient Name: GARCIA WANG Gender: Male Date: 1950 Study Date: 04-Apr-2016 [facility] Coordinator: DOROTA Location: E Ref. Physician: MARKY BEST Quality: Adequate Procedures: Transthoracic echocardiogram with complete 2D, M-Mode, and doppler examination. Indications: Chest Pain. 2D/M Mode Doppler Measurement Value Normal Ranges Measurement Value Normal Ranges AoR Diam MM 3.7 cm AV Peak Jonathan 1.4 m/sec ACS MM 1.9 cm AV Peak PG 7.8 mmHg LVIDd 2D 5.2 3.5 - 5.6 cm AI Peak PG 81.4 mmHg LVIDs 2D 3.7 2.1 - 4.1 cm AI Peak Jonathan 4.5 m/sec LVPWd 2D 1.2 0.6 - 1.1 cm AI PHT 516.9 msec IVSd 2D 1.3 0.6 - 1.1 cm LVOT Peak Jonathan 0.7 m/sec EDV 2D 127.5 cm3 LVOT Peak PG 2.0 mmHg ESV 2D 49.6 cm3 MV E Peak Jonathan 0.6 m/sec LA Dimen 2D 4.6 2.3 - 4.0 cm MV A Peak Jonathan 0.8 m/sec MV E/A 0.8 MV Decel Time 242 msec MV Decel Sullivan 3 MV E/A 0.8 TR Peak Jonathan 2.7 m/sec TR Peak PG 28.4 mmHg PV Peak Jonathan 1.1 m/sec PV Peak PG 5.0 mmHg RVSP 31.4 mmHg Findings Left Ventricle: Normal left ventricular systolic function. Normal left ventricular cavity size. Mild concentric left ventricular hypertrophy. Ejection fraction is visually estimated at 55 %. Tissue Doppler/Mitral Doppler indices are indeterminate in this study according to the new diastolic parameters. E/E`=8. Right Ventricle: Normal right ventricular size. Normal right ventricular systolic function. Left Atrium: There is mild enlargement of left atrium. Right Atrium: The right atrium is normal in size. Atrial Septum: Normal atrial septum. Mitral Valve: Normal appearance and function of the mitral valve with trace physiologic regurgitation. Aortic Valve: Normal appearance of the aortic valve. No hemodynamically significant aortic stenosis by doppler. Mild aortic valve regurgitation. Tricuspid Valve: Normal appearance of the tricuspid valve. Estimated peak PA systolic pressure 31 mmHg. There is trace to mild tricuspid regurgitation. Pulmonic Valve: Normal pulmonic valve appearance. There is mild pulmonic regurgitation. Pericardium: Normal pericardium with no significant pericardial effusion. Aorta: Normal aortic root. IVC: Normal size and normal respiratory collapse consistent with normal right atrial pressure. Pulmonary Artery: Normal pulmonary artery size. Conclusions 1.Normal left ventricular systolic function. Normal left ventricular cavity size. Mild concentric left ventricular hypertrophy. Ejection fraction is visually estimated at 55 %. 2.Normal right ventricular size. Normal right ventricular systolic function. 3.Normal appearance and function of the mitral valve with trace physiologic regurgitation. 4.Normal appearance of the aortic valve. No hemodynamically significant aortic stenosis by doppler. Mild aortic valve regurgitation. 5.Normal appearance of the tricuspid valve. Estimated peak PA systolic pressure 31 mmHg. There is trace to mild tricuspid regurgitation. 6.Normal pericardium with no significant pericardial effusion. Electronically Signed By: Supa Mayer 04-Apr-2016 19:22:56 -0800 Patient Name: GARCIA WANG Study Date: 04-Apr-2016 [id number]
[2016-04-04] MEDS: ATORVASTATIN 20 MG TAB PO SCH (20:45)
[2016-04-05] VITALS (9 sets, daily range): BP systolic 117–132; BP diastolic 56–75; PULSE 65–72; RESP 18–20
[2016-04-05 08:25] LABS: BASOPHILS % 0.2 % (0.0-2.0); EOSINOPHILS # 0.1 10^3/ul (0.0-0.5); EOSINOPHILS % 0.8 % (0.0-7.0); HEMATOCRIT 32.8 % (42.0-52.0); HEMOGLOBIN 10.6 g/dl (14.0-18.0); LYMPHOCYTES # 2.2 10^3/ul (0.8-2.9); LYMPHOCYTES % 26.2 % (15.0-51.0); MEAN CORPUSCULAR HEMOGLOBIN 25.1 pg (29.0-33.0); MEAN CORPUSCULAR HGB CONC 32.4 g/dl (32.0-37.0); MEAN CORPUSCULAR VOLUME 77.4 fl (82.0-101.0); MEAN PLATELET VOLUME 7.9 fl (7.4-10.4); MONOCYTE # 0.7 10^3/ul (0.3-0.9); MONOCYTES % 8.5 % (0.0-11.0); NEUTROPHIL # 5.3 10^3/ul (1.6-7.5); NEUTROPHILS % 64.3 % (39.0-77.0); PLATELET COUNT 307 10^3/UL (140-440); RED BLOOD COUNT 4.24 10^6/ul (4.70-6.10); RED CELL DISTRIBUTION WIDTH 18.5 % (11.5-14.5); UNCORRECTED WBC 8.3 10^3/ul (4.8-10.8); WHITE BLOOD COUNT 8.3 10^3/ul (4.8-10.8)
[2016-04-05 08:27] LABS: CONDITION 1; LH ANALYZER COMMENTS 1
[2016-04-05 08:32] LABS: POTASSIUM 3.6 mmol/L (3.5-5.1)
[2016-04-05 08:34] LABS: CREATININE 1.01 mg/dl (0.61-1.24)
[2016-04-05 08:35] LABS: CALCIUM 8.5 mg/dl (8.4-10.2)
[2016-04-05] MEDS: FAMOTIDINE 20 MG INJ IV SCH ×2 (09:03→20:08)
[2016-04-05] MEDS: METHADONE 10 MG TAB PO SCH (09:06)
[2016-04-05] MEDS: APIXABAN 5 MG TABLET PO SCH ×2 (09:07→20:04)
[2016-04-05] MEDS: NIFEdipine (XL) 60 MG TAB PO SCH (09:07)
[2016-04-05] MEDS: metroNIDAZOLE 500 MG TAB PO SCH ×4 (09:07→20:04)
[2016-04-05] MEDS: ASPIRIN 81 MG TAB PO SCH (09:09)
[2016-04-05] MEDS: LEVOFLOXACIN 750 MG TABLET PO SCH (09:09)
[2016-04-05] MEDS: FUROSEMIDE 20 MG TAB PO SCH (09:09)
[2016-04-05 12:28] LABS: IRON 32 ug/dl (35-150)
[2016-04-05 12:38] LABS: TOTAL IRON BINDING CAPACITY 269 ug/dl (241-421)
--- NOTE | 2016-04-05 12:54 | PN ---
DATE: 04/05/2016 HOSPITALIST PROGRESS NOTE TIME OF EVALUATION: 11:30 a.m. SUBJECTIVE DATA: Denies any abdominal pain. Complains of constant burping and feeding of fullness. Denies any chest pain. OBJECTIVE DATA: VITAL SIGNS: Temperature 98.6, pulse rate 69, respiratory rate 20, blood pressure 117/56, oxygen saturation 98% on room air. GENERAL: This is a morbidly obese -[place] male lying in bed in no apparent distress. HEENT: Head normocephalic and atraumatic. Sclerae and conjunctivae clear. ENT : Nasal septum is midline. Oral mucosa is dry. NECK: Short and obese. Unable to visualize any neck veins. CARDIAC: Regular rate and rhythm. No murmurs heard. ABDOMEN: Distended. Soft. Nontender. Bowel sounds hypoactive in all 4 quadrants. GENITOURINARY: Deferred. EXTREMITIES: No cyanosis, no clubbing, no edema. Peripheral pulses are palpable. NEUROLOGIC: The patient is awake, alert and oriented. Cranial nerves are grossly intact. LABORATORY AND DIAGNOSTIC DATA: WBC 8.3, hemoglobin 10.6, hematocrit 32.8, platelet count 307. Sodium 142, potassium 3.6, chloride 107, carbon dioxide 24 , anion gap 15, BUN 13, creatinine 1.01, glucose 97, calcium 8.5. ASSESSMENT AND PLAN: 1. Atypical chest pain. Resolved. Serial troponins negative. 2-D echocardiogram showing preserved left ventricular ejection fraction. 2. Abdominal pain. The patient's CT scan of the abdomen and pelvis from 2016 was showing sigmoid diverticulosis and soft tissue stranding in the colon suspicious for early mild diverticulitis. The patient is being treated for any underlying diverticulitis. Pending gastroenterology evaluation. 3. Dyslipidemia. Continue statins. 4. Essential hypertension. Continue antihypertensives. 5. Microcytic, hypochromic anemia. Etiology unclear. Will check the patient for any underlying iron deficiency. 6. History of cerebrovascular accident with no residual defects. The patient on aspirin and Apixaban. 7. Fluid, electrolytes, and nutrition. Continue low-cholesterol diet as tolerated. 8. Deep venous thrombosis prophylaxis. On factor Xa inhibitors. 9. Gastrointestinal prophylaxis. Continue histamine 2 receptor blockers. 10. Plan. Continue current management. Await gastroenterology evaluation. Case discussed with Dr. Pro. FEDERICO PRO MD AM/MARISA Conf#: [id number] DID#: [id number] MTDD
[2016-04-05] MEDS: ACETAMINOPHEN 325 MG TAB PO PRN (20:04)
[2016-04-05] MEDS: ATORVASTATIN 20 MG TAB PO SCH (20:04)
[2016-04-05] MEDS: morphine 2 MG INJ IV PRN (23:21)
[2016-04-06 08:15] VITALS: BP 134/77; RESP 20
[2016-04-06] MEDS: FAMOTIDINE 20 MG INJ IV SCH ×2 (08:28→21:13)
[2016-04-06] MEDS: HYDROCODONE/APAP (5/325) TAB PO PRN ×2 (08:28→21:15)
[2016-04-06] MEDS: APIXABAN 5 MG TABLET PO SCH ×2 (08:28→21:13)
[2016-04-06] MEDS: metroNIDAZOLE 500 MG TAB PO SCH ×4 (08:28→21:12)
[2016-04-06] MEDS: NIFEdipine (XL) 60 MG TAB PO SCH (08:29)
[2016-04-06] MEDS: ASPIRIN 81 MG TAB PO SCH (08:29)
[2016-04-06] MEDS: FUROSEMIDE 20 MG TAB PO SCH (08:29)
[2016-04-06] MEDS: LEVOFLOXACIN 750 MG TABLET PO SCH (08:29)
[2016-04-06 08:37] LABS: BASOPHILS % 0.3 % (0.0-2.0); EOSINOPHILS # 0.1 10^3/ul (0.0-0.5); EOSINOPHILS % 1.2 % (0.0-7.0); HEMATOCRIT 32.7 % (42.0-52.0); HEMOGLOBIN 10.8 g/dl (14.0-18.0); LYMPHOCYTES # 2.1 10^3/ul (0.8-2.9); LYMPHOCYTES % 23.2 % (15.0-51.0); MEAN CORPUSCULAR HEMOGLOBIN 25.4 pg (29.0-33.0); MEAN CORPUSCULAR HGB CONC 32.9 g/dl (32.0-37.0); MEAN CORPUSCULAR VOLUME 77.3 fl (82.0-101.0); MEAN PLATELET VOLUME 8.1 fl (7.4-10.4); MONOCYTE # 0.9 10^3/ul (0.3-0.9); MONOCYTES % 9.5 % (0.0-11.0); NEUTROPHIL # 6.1 10^3/ul (1.6-7.5); NEUTROPHILS % 65.8 % (39.0-77.0); PLATELET COUNT 291 10^3/UL (140-440); POTASSIUM 3.9 mmol/L (3.5-5.1); RED BLOOD COUNT 4.23 10^6/ul (4.70-6.10); RED CELL DISTRIBUTION WIDTH 18.2 % (11.5-14.5); UNCORRECTED WBC 9.2 10^3/ul (4.8-10.8); WHITE BLOOD COUNT 9.2 10^3/ul (4.8-10.8)
[2016-04-06 08:39] LABS: CREATININE 0.95 mg/dl (0.61-1.24)
[2016-04-06 08:40] LABS: CALCIUM 8.5 mg/dl (8.4-10.2)
[2016-04-06 08:42] VITALS: BP 134/77; RESP 20
[2016-04-06 08:47] LABS: MAGNESIUM 1.8 mg/dl (1.7-2.5); PHOSPHORUS 2.9 mg/dl (2.5-4.9)
[2016-04-06 08:57] LABS: CONDITION 1; LH ANALYZER COMMENTS 1
[2016-04-06] MEDS: METHADONE 10 MG TAB PO SCH (09:25)
[2016-04-06] MEDS: ATENOLOL 50 MG TAB PO SCH (09:25)
--- NOTE | 2016-04-06 11:52 | PN ---
Date/Time of Note Date/Time of Note DATE: 04/06/16 TIME: 11:51 Assessment/Plan VTE Prophylaxis VTE Prophylaxis Intervention: other (Factor Xa inhibitors.) Lines/Catheters IV C[facility] Type (from [facility]): Saline Lock Urinary Cath still in place: No Assessment/Plan Chief Complaint/Hosp Course 1. Atypical chest pain. Resolved. Serial troponins negative. 2-D echocardiogram showing preserved left ventricular ejection fraction. 2. Abdominal pain. The patient's CT scan of the abdomen and pelvis from 2016 was showing sigmoid diverticulosis and soft tissue stranding in the colon suspicious for early mild diverticulitis. The patient is being treated for any underlying diverticulitis. Pending gastroenterology evaluation. 3. Dyslipidemia. Continue statins. 4. Essential hypertension. Continue antihypertensives. 5. Microcytic, hypochromic anemia. Etiology unclear. Iron panel showing iron deficiency. Will start the patient on iron supplements. 6. History of cerebrovascular accident with no residual defects. The patient is on aspirin and Apixaban (as per the patient he had some "blood cots in brain " and therefore he is on Eliquis). 7. Chronic back pain. The patient is on methadone. 8. Fluid, electrolytes, and nutrition. Continue low-cholesterol diet as tolerated. 9. Deep venous thrombosis prophylaxis. On factor Xa inhibitors. 10. Gastrointestinal prophylaxis. Continue histamine 2 receptor blockers. 11. Plan. Continue current management. Await gastroenterology evaluation. Start iron supplements. Case discussed with Dr. Pro. Problems: Subjective 24 Hr Interval Summary Free Text/Dictation Complains of abdominal pain. Exam/Review of Systems Vital Signs Vitals Vital Signs Date Time Temp Pulse Resp B/P Pulse Ox O2 Delivery O2 Flow Rate FiO2 04/06/16 08:42 98.8 83 20 134/77 99 04/03/16 20:20 Room Air Intake and Output 04/05/16 04/05/16 04/06/16 15:00 23:00 07:00 Intake Total 1400 ml 350 ml Balance 1400 ml 350 ml Exam GENERAL: This is a morbidly obese -[place] male lying in bed in no apparent distress. HEENT: Head normocephalic and atraumatic. Sclerae and conjunctivae clear. ENT : Nasal septum is midline. Oral mucosa is dry. NECK: Short and obese. Unable to visualize any neck veins. CARDIAC: Regular rate and rhythm. No murmurs heard. ABDOMEN: Distended. Soft. Nontender. Bowel sounds hypoactive in all 4 quadrants. GENITOURINARY: Deferred. EXTREMITIES: No cyanosis, no clubbing, no edema. Peripheral pulses are palpable. NEUROLOGIC: The patient is awake, alert and oriented. Cranial nerves are grossly intact. Results Result Diagram: 04/06/16 0759 04/06/16 0759 Results 24 hrs Laboratory Tests Test 04/06/16 07:59 Anion Gap 15 Basophils # 0.0 Basophils % 0.3 Blood Morphology Comment Blood Urea Nitrogen 11 Calcium Level 8.5 Carbon Dioxide Level 22 Chloride Level 107 Creatinine 0.95 Eosinophils # 0.1 Eosinophils % 1.2 Glucose Level 98 Hematocrit 32.7 L Hemoglobin 10.8 L Lymphocytes # 2.1 Lymphocytes % 23.2 Magnesium Level 1.8 Mean Corpuscular Hemoglobin 25.4 L Mean Corpuscular Hemoglobin Concent 32.9 Mean Corpuscular Volume 77.3 L Mean Platelet Volume 8.1 Monocytes # 0.9 Monocytes % 9.5 Neutrophils # 6.1 Neutrophils % 65.8 Nucleated Red Blood Cells # 0.0 Nucleated Red Blood Cells % 0.0 Phosphorus Level 2.9 Platelet Count 291 Potassium Level 3.9 Red Blood Count 4.23 L Red Cell Distribution Width 18.2 H Sodium Level 140 White Blood Count 9.2 Medications Medications Current Medications Apixaban (Eliquis) 2.5 mg BID PO Last administered on 04/06/16 08:28; Admin Dose 2.5 MG; Start 04/03/16 at 21:00 Atorvastatin Calcium (Lipitor) 20 mg HS PO Last administered on 04/05/16 20:04 ; Admin Dose 20 MG; Start 04/03/16 at 21:00 Furosemide (Lasix) 20 mg QAM PO Last administered on 04/06/16 08:29; Admin Dose 20 MG; Start 04/04/16 at 09:00 Meclizine HCl (Antivert) 12.5 mg Q8H PRN PO DIZZINESS; Start 04/03/16 at 10:00 Methadone HCl (Methadone) 45 mg DAILY PO Last administered on 04/06/16 09:25; Admin Dose 45 MG; Start 04/05/16 at 09:00 Nifedipine (Procardia Xl) 60 mg DAILY PO Last administered on 04/06/16 08:29; Admin Dose 60 MG; Start 04/04/16 at 09:00 Ondansetron HCl (Zofran Inj) 4 mg Q6H PRN IV NAUSEA AND/OR VOMITING Last administered on 04/04/16 09:55; Admin Dose 4 MG; Start 04/03/16 at 10:00 Acetaminophen (Tylenol Tab) 650 mg Q6H PRN PO PAIN LEVEL 1-3 OR FEVER Last administered on 04/05/16 20:04; Admin Dose 650 MG; Start 04/03/16 at 10:00 Acetaminophen (Tylenol Supp) 650 mg Q6H PRN [place] PAIN LEVEL 1-3 OR FEVER; Start 04/03/16 at 10:00 Acetaminophen/ Hydrocodone Bitart ([place] (5/325)) 1 tab Q6H PRN PO MODERATE PAIN LEVEL 4-6; Start 04/03/16 at 10:00 Acetaminophen/ Hydrocodone Bitart ([place] (5/325)) 2 tab Q6H PRN PO SEVERE PAIN LEVEL 7-10 Last administered on 04/06/16 08:28; Admin Dose 2 TAB; Start 04/03/16 at 10:00 Morphine Sulfate (morphine) 2 mg Q4H PRN IV SEVERE PAIN LEVEL 7-10 Last administered on 04/05/16 23:21; Admin Dose 2 MG; Start 04/03/16 at 10:00 Famotidine (Pepcid Iv) 20 mg Q12 IV Last administered on 04/06/16 08:28; Admin Dose 20 MG; Start 04/03/16 at 21:00 Aspirin (Aspirin) 81 mg DAILY PO Last administered on 04/06/16 08:29; Admin Dose 81 MG; Start 04/05/16 at 09:00 Nitroglycerin (Nitroglycerin (Sl Tab) 0.4 Mg) 1 tab Q5M PRN SL CHEST PAIN; Start 04/03/16 at 10:00 Levofloxacin (Levaquin) 750 mg DAILY PO Last administered on 04/06/16 08:29; Admin Dose 750 MG; Start 04/04/16 at 09:00 Metronidazole (Flagyl) 500 mg QID PO Last administered on 04/06/16 08:28; Admin Dose 500 MG; Start 04/03/16 at 21:00 Atenolol (Tenormin) 50 mg DAILY PO Last administered on 2/7/17at 09:25; Admin Dose 50 MG; Start 04/06/16 at 09:00 FEDERICO IWGGINS NP Apr 06, 2016 11:52
[2016-04-06] MEDS ORDERED: SOD FERRIC GLUC COMPLX 125 MG in SOD CHLORIDE 0.9% 100 ML IVPB SCH (13:00)
[2016-04-06] MEDS: ONDANSETRON 4 MG INJ IV PRN (18:12)
--- NOTE | 2016-04-06 19:44 | CONS ---
Date/Time of Note Date/Time of Note DATE: 04/06/16 TIME: 19:37 Assessment/Plan Assessment/Plan Additional Assessment/Plan Assessment: * Diverticulitis abdominal pain * Abdominal pain, likely related to above. There appears to be a component of chronic pain. * Chest pain/acute coronary event has been ruled out * Hypertension * Obesity Plan: * Continue present regimen to complete antibiotic course * Consider colonoscopy 4-6 weeks after completion of antibiotics * Advance diet as tolerated Consultation Date/Type/Reason Admit Date/Time Date of Consultation: Apr 06, 2016 Hx of Present Illness 65-year-old male who complains of approximately 3-4 months of persistent left upper quadrant and left lower quadrant abdominal pain, evaluation has included a CT of the abdomen that showed diverticulosis with evidence suggestive of acute diverticulitis. The patient has been started on antibiotics and outpatient but subsequently was admitted as his pain continued to be severe. Today the patient states that his pain finally started getting better but he is concerned about previous attempts at evaluating his gastrointestinal tract that apparently were incomplete. I have explained that at this point we are treating acute diverticulitis and that precludes any type of invasive evaluation of the colon such as colonoscopy. Patient is concerned about postprandial bloating which has been chronic. There is no history of overt gastrointestinal bleeding. Again there appears to be an attempted colonoscopy was suboptimal due to poor preparation, no documentation is available in [facility] EMR. Respiratory: no complaints Cardiovascular: no complaints Gastrointestinal: pain (Left upper quadrant and left lower quadrant abdominal pain), No blood, No constipation, No diarrhea, No nausea, No vomiting Genitourinary: no complaints Musculoskeletal: no complaints Skin: no complaints Past Medical History Medical History: diverticulitis Past Surgical History Past Surgical Hx: no surgical history Family History Significant Family History: no pertinent family hx Social History Alcohol Use: none Smoking Status: Current every day smoker Drug Use: none Exam/Review of Systems Vital Signs Vitals Vital Signs Date Time Temp Pulse Resp B/P Pulse Ox O2 Delivery O2 Flow Rate FiO2 04/06/16 08:42 98.8 83 20 134/77 99 04/03/16 20:20 Room Air Intake and Output 04/05/16 04/05/16 04/06/16 15:00 23:00 07:00 Intake Total 1400 ml 350 ml Balance 1400 ml 350 ml Exam Constitutional: alert, obese, oriented Head: atraumatic, normocephalic Neck: non-tender, supple Respiratory: clear to auscultation, normal air movement Cardiovascular: nl pulses, regular rate and rhythm Gastrointestinal: bowel sounds, distended, tender (Left upper quadrant and left lower quadrant), No ascites, No hepatomegaly, No mass, No rebound or guarding, No splenomegaly Musculoskeletal: nl extremities to inspection Extremities: normal pulses Skin: nl turgor Lymph: nl lymph nodes Results Result Diagram: 04/06/16 0759 04/06/16 0759 Results 24 hrs Laboratory Tests Test 04/06/16 07:59 Anion Gap 15 Basophils # 0.0 Basophils % 0.3 Blood Morphology Comment Blood Urea Nitrogen 11 Calcium Level 8.5 Carbon Dioxide Level 22 Chloride Level 107 Creatinine 0.95 Eosinophils # 0.1 Eosinophils % 1.2 Glucose Level 98 Hematocrit 32.7 L Hemoglobin 10.8 L Lymphocytes # 2.1 Lymphocytes % 23.2 Magnesium Level 1.8 Mean Corpuscular Hemoglobin 25.4 L Mean Corpuscular Hemoglobin Concent 32.9 Mean Corpuscular Volume 77.3 L Mean Platelet Volume 8.1 Monocytes # 0.9 Monocytes % 9.5 Neutrophils # 6.1 Neutrophils % 65.8 Nucleated Red Blood Cells # 0.0 Nucleated Red Blood Cells % 0.0 Phosphorus Level 2.9 Platelet Count 291 Potassium Level 3.9 Red Blood Count 4.23 L Red Cell Distribution Width 18.2 H Sodium Level 140 White Blood Count 9.2 Medications Medications Current Medications Apixaban (Eliquis) 2.5 mg BID PO Last administered on 04/06/16 08:28; Admin Dose 2.5 MG; Start 04/03/16 at 21:00 Atorvastatin Calcium (Lipitor) 20 mg HS PO Last administered on 04/05/16 20:04 ; Admin Dose 20 MG; Start 04/03/16 at 21:00 Furosemide (Lasix) 20 mg QAM PO Last administered on 04/06/16 08:29; Admin Dose 20 MG; Start 04/04/16 at 09:00 Meclizine HCl (Antivert) 12.5 mg Q8H PRN PO DIZZINESS; Start 04/03/16 at 10:00 Methadone HCl (Methadone) 45 mg DAILY PO Last administered on 04/06/16 09:25; Admin Dose 45 MG; Start 04/05/16 at 09:00 Nifedipine (Procardia Xl) 60 mg DAILY PO Last administered on 04/06/16 08:29; Admin Dose 60 MG; Start 04/04/16 at 09:00 Ondansetron HCl (Zofran Inj) 4 mg Q6H PRN IV NAUSEA AND/OR VOMITING Last administered on 04/06/16 18:12; Admin Dose 4 MG; Start 04/03/16 at 10:00 Acetaminophen (Tylenol Tab) 650 mg Q6H PRN PO PAIN LEVEL 1-3 OR FEVER Last administered on 04/05/16 20:04; Admin Dose 650 MG; Start 04/03/16 at 10:00 Acetaminophen (Tylenol Supp) 650 mg Q6H PRN [place] PAIN LEVEL 1-3 OR FEVER; Start 04/03/16 at 10:00 Acetaminophen/ Hydrocodone Bitart ([place] (5/325)) 1 tab Q6H PRN PO MODERATE PAIN LEVEL 4-6; Start 04/03/16 at 10:00 Acetaminophen/ Hydrocodone Bitart ([place] (5/325)) 2 tab Q6H PRN PO SEVERE PAIN LEVEL 7-10 Last administered on 04/06/16 08:28; Admin Dose 2 TAB; Start 04/03/16 at 10:00 Morphine Sulfate (morphine) 2 mg Q4H PRN IV SEVERE PAIN LEVEL 7-10 Last administered on 04/05/16 23:21; Admin Dose 2 MG; Start 04/03/16 at 10:00 Famotidine (Pepcid Iv) 20 mg Q12 IV Last administered on 04/06/16 08:28; Admin Dose 20 MG; Start 04/03/16 at 21:00 Aspirin (Aspirin) 81 mg DAILY PO Last administered on 04/06/16 08:29; Admin Dose 81 MG; Start 04/05/16 at 09:00 Nitroglycerin (Nitroglycerin (Sl Tab) 0.4 Mg) 1 tab Q5M PRN SL CHEST PAIN; Start 04/03/16 at 10:00 Levofloxacin (Levaquin) 750 mg DAILY PO Last administered on 04/06/16 08:29; Admin Dose 750 MG; Start 04/04/16 at 09:00 Metronidazole (Flagyl) 500 mg QID PO Last administered on 04/06/16 17:25; Admin Dose 500 MG; Start 04/03/16 at 21:00 Atenolol 50 mg 50 mg DAILY PO Last administered on 04/06/16 09:25; Admin Dose 50 MG; Start 04/06/16 at 09:00 Ferric Sodium Gluconate Complex/ Sodium Chloride (Ferrlecit/NS) 110 ml @ 100 mls/hr Q24H IVPB Last administered on 04/06/16 13:17; Admin Dose 100 MLS/HR; Start 04/06/16 at 13:00; Stop 04/08/16 at 14:05 CHEY MAURER MD Apr 06, 2016 19:44
[2016-04-06 20:58] VITALS: BP 125/72; RESP 20
[2016-04-06] MEDS: ATORVASTATIN 20 MG TAB PO SCH (21:13)
[2016-04-07 06:50] LABS: POTASSIUM 4.4 mmol/L (3.5-5.1)
[2016-04-07 06:52] LABS: CREATININE 1.01 mg/dl (0.61-1.24)
[2016-04-07 06:53] LABS: CALCIUM 8.7 mg/dl (8.4-10.2)
[2016-04-07 07:01] LABS: MAGNESIUM 1.9 mg/dl (1.7-2.5); PHOSPHORUS 3.8 mg/dl (2.5-4.9)
[2016-04-07 08:04] VITALS: BP 117/79; RESP 20
[2016-04-07] MEDS: APIXABAN 5 MG TABLET PO SCH (08:19)
[2016-04-07] MEDS: metroNIDAZOLE 500 MG TAB PO SCH ×2 (08:19→12:20)
[2016-04-07] MEDS: LEVOFLOXACIN 750 MG TABLET PO SCH (08:19)
[2016-04-07 08:20] VITALS: BP 148/77; PULSE 67
[2016-04-07] MEDS: ASPIRIN 81 MG TAB PO SCH (08:20)
[2016-04-07] MEDS: ATENOLOL 50 MG TAB PO SCH (08:24)
[2016-04-07] MEDS: FUROSEMIDE 20 MG TAB PO SCH (08:24)
[2016-04-07] MEDS: NIFEdipine (XL) 60 MG TAB PO SCH (08:24)
[2016-04-07] MEDS: FAMOTIDINE 20 MG INJ IV SCH (08:25)
[2016-04-07] MEDS: METHADONE 10 MG TAB PO SCH (08:26)
[2016-04-07 09:59] LABS: BASOPHILS % 0.4 % (0.0-2.0); EOSINOPHILS # 0.1 10^3/ul (0.0-0.5); EOSINOPHILS % 1.1 % (0.0-7.0); HEMATOCRIT 33.9 % (42.0-52.0); LYMPHOCYTES # 1.8 10^3/ul (0.8-2.9); LYMPHOCYTES % 21.4 % (15.0-51.0); MEAN CORPUSCULAR HGB CONC 32.4 g/dl (32.0-37.0); MEAN PLATELET VOLUME 7.9 fl (7.4-10.4); MONOCYTE # 0.9 10^3/ul (0.3-0.9); MONOCYTES % 10.4 % (0.0-11.0); NEUTROPHIL # 5.7 10^3/ul (1.6-7.5); NEUTROPHILS % 66.7 % (39.0-77.0); PLATELET COUNT 289 10^3/UL (140-440); RED CELL DISTRIBUTION WIDTH 18.9 % (11.5-14.5); UNCORRECTED WBC 8.5 10^3/ul (4.8-10.8); WHITE BLOOD COUNT 8.5 10^3/ul (4.8-10.8)
[2016-04-07 10:08] LABS: CONDITION 1; LH ANALYZER COMMENTS 1
--- NOTE | 2016-04-07 11:42 | PDOCDIS ---
Discharge Instructions DIAGNOSIS Discharge Diagnosis: Abdominal pain. CONDITION Patient Condition: Stable HOME CARE INSTRUCTIONS: Special Diet: low fat. low isaac OTHER ORDERS: Other Orders: 1. Follow a low-cholesterol diet. 2. Resume home medications. 3. Follow-up with your primary care physician in 2 weeks. 4. Follow-up with chief strategy officer as scheduled on 04/26/2016. 5. Resume activities as tolerated. FEDERICO WIGGINS NP Apr 07, 2016 11:42
[2016-04-07] MEDS ORDERED: CIPR500T4 PO (11:45)
[2016-04-07] MEDS ORDERED: METR500T PO (11:45)
[2016-04-07] MEDS ORDERED: FER325 PO (11:45)
--- NOTE | 2016-04-07 16:14 | DS ---
DATE OF ADMISSION: 04/03/2016 DATE OF DISCHARGE: 04/07/2016 FINAL DIAGNOSES: 1. Atypical chest pain, resolved, acute coronary syndrome ruled out. 2. Abdominal pain most probably secondary to diverticulitis. 3. Dyslipidemia. 4. Essential hypertension. 5. Microcytic, hypochromic anemia. 6. Iron deficiency. 7. History of cerebrovascular accident with no residual defects. 8. Chronic back pain. 9. Obesity. CONSULTATIONS: Dr. Ernie Trejo, gastroenterology. HOSPITAL COURSE: This is a 65-year-old male with past medical history of dyslipidemia, hypertension, CVA and chronic back pain who came to the emergency room with a chief complaint of abdominal pain and abdominal distention with associated nausea, vomiting, diarrhea, and constipation. The patient was recently seen at [facility] on 03/28/2016 with similar presentation. At that time, the patient underwent a CT scan of the abdomen that did show sigmoid diverticulosis and colonic soft tissue stranding suspicious for mild diverticulitis. At that time, the patient was discharged home on antibiotics. The patient had outpatient gastroenterology followup scheduled. However, the patient's symptoms were getting worse and he came to the emergency room. The patient also reported a burning-like chest pain of 5/ 10 to 6/10 in intensity. The patient denied any dyspnea. Provided the patient' s history of present illness and the comorbidities, a clinical decision was made to admit the patient to inpatient setting to have him further evaluated. The patient was admitted to inpatient telemetry floor. Serial troponins were ordered. A 2D echocardiogram was ordered. The patient was ruled out for acute coronary syndrome. The patient was started on antibiotics for any underlying diverticulitis. Gastroenterology consult was called. Gastroenterology evaluated the patient and recommended continuing current regimen with antibiotics. Infantryman recommended a colonoscopy in 4 to 6 weeks after completion of antibiotics. The patient has dyslipidemia. The patient was maintained on statins for the same. He has underlying essential hypertension. The patient was maintained on antihypertensives for the same. The patient's blood pressure was controlled throughout his hospital course. The patient also was noticed to have microcytic , hypochromic anemia. The patient's H and H remained stable. The patient's iron panel showed iron deficiency. The patient was started on iron supplements. The patient has history of cerebrovascular attack. As per the patient, he has been on Eliquis since he was told that he has a "blood clot in brain." The patient is also on methadone because of chronic back pain. The patient had a stable hospital course. The patient was cleared by consultants to be discharged home. The patient's abdominal pain is well controlled. The patient is stable for outpatient gastroenterology followup. DISCHARGE DISPOSITION AND PLAN: The patient will be discharged home today. The patient was instructed to follow a low cholesterol diet. He was instructed to resume his home medications. He was instructed to follow up with his primary care physician in 2 weeks. He was instructed to follow up with a deep submergence vehicle operator as scheduled on 02/23/2017. The patient was instructed to resume activities as tolerated. The patient verbalized understanding of his discharge instructions. CONDITION AT DISCHARGE: Stable. DISCHARGE MEDICATIONS: 1. Ciprofloxacin 500 mg p.o. b.i.d. x7 days. 2. Flagyl 500 mg p.o. q hours x7 days. 3. Ferrous sulfate 325 mg p.o. b.i.d. 4. Eliquis 2.5 mg p.o. b.i.d. 5. Atorvastatin 20 mg p.o. at bedtime. 6. Lasix 20 mg p.o. q.a.m. 7. Meclizine 12.5 mg p.o. q. p.r.n. dizziness. 8. Methadone 45 mg p.o. 9. Nifedipine 60 mg p.o. daily. 10. Zofran 4 mg p.o. q.6h. p.r.n. nausea, vomiting. PERTINENT LABORATORY AND DIAGNOSTIC DATA: 1. Echocardiogram: Ejection fraction of 55%. Estimated peak PA systolic pressure of 30 mmHg. There is trace to mild tricuspid regurgitation. 2. Chest x-ray. No evidence of acute cardiopulmonary disease. 3. Latest CBC: WBC 8.5, hemoglobin 11.0, hematocrit 33.9, platelet count 289. Sodium 140, potassium 4.4, chloride 107, carbon dioxide 20, anion gap 16, BUN 14, creatinine 1.01, glucose 80, calcium 8.7, phosphorus 3.8, magnesium 1.9. 4. Hemoglobin A1c 5.7. 5. Fasting lipid panel: Triglycerides 141, total cholesterol 84, LDL 31, HDL 25. 6. Iron panel: Iron 32, TIBC 269, iron saturation 12, protein 49.4. At this time, I would like to thank Dr. Trejo for seeing the patient and providing clinical recommendations. The case and management of this patient was fully discussed with Dr. Daniels. Approximately 35 minutes were spent on coordinating the discharge on this patient. FEDERICO DANIELS MD, AM/MARISA Conf#: [id number] DID#: [id number] MTDD
== END 2016-04-07 13:45 | disposition home or self-care (01) | DRG 392 ==
LOC: E/R 20:47 → TEL 04-03 08:32 → UNDOADMOB 04-03 08:32 → TEL 04-03 20:25 → OBSVTOIN 04-05 12:27 → PP2 04-05 21:25
PROVIDERS: ADMIT Student in an Organized Health Care Education/Training Program; ATTEND Student in an Organized Health Care Education/Training Program
DX: K57.92 Diverticulitis of intestine, part unspecified, without perforation or abscess without bleeding (principal); I11.0 Hypertensive heart disease with heart failure; I50.9 Heart failure, unspecified; R07.89 Other chest pain; E78.5 Hyperlipidemia, unspecified; D50.9 Iron deficiency anemia, unspecified; Z86.73 Personal history of transient ischemic attack (TIA), and cerebral infarction without residual deficits; Z79.82 Long term (current) use of aspirin; I10 Essential (primary) hypertension; E66.9 Obesity, unspecified; Z68.36 Body mass index [BMI] 36.0-36.9, adult; G89.29 Other chronic pain; M54.9 Dorsalgia, unspecified; K57.30 Diverticulosis of large intestine without perforation or abscess without bleeding; R79.89 Other specified abnormal findings of blood chemistry
CPT/HCPCS: 71010; 80048; 80053; 80061; 81001; 81003; 82550; 82553; 82728; 83036; 83540; 83690; 83735; 83880; 84100; 84436; 84443; 84479; 84484; 85025; 93005; 93306; 96374; 96375; 96376; G0378; J2270; J2405; J2916; J7030

== ENCOUNTER 2016-04-13 15:49 | Outpatient (CLI) | payer OTHER ==
[~2016-04-13] VITALS: Ht 177.8 cm; Wt 122.7 kg
[~2016-04-13 15:49] MED LIST changes: +APIX2.5T PO; -ATEN50TA PO; +CIPR500T4 PO; -COU1 PO; +FER325 PO; -HYDR-902 PO; -LEVO750T25 PO; +MECL-77 PO; -OMEP20CA16 PO; -SENN-53 PO; -TOPI-25 PO; -TRAM50TA2 PO; -WARF5TAB72 PO
[2016-04-13 15:54] VITALS: BP 122/64; PULSE 82; RESP 18; Ht 177.8 cm; Wt 122.7 kg
--- NOTE | 2016-04-13 16:04 | PN ---
Date/Time of Note Date/Time of Note DATE: 04/13/16 TIME: 16:03 Outpatient Progress Note Chief Complaint Abdominal pain/atypical chest pain/hyperlipidemia/hypertension/anemia/CVA/back pain/obesitydiabetes HPI Abdominal pain/patient has abdominal discomfort, mostly in epigastric area, patient also has heartburn, 8 out of 10, patient feel fullness, no hematemesis or melena, denies any gallbladder problem, Chest pain/patient was recently hospitalized with atypical chest pain, no chest pain at present, no pain in her left shoulder left arm or back, Hyperlipidemia/no xanthoma, on medication, side effect of medication, Hypertension/no headache dizziness lightheadedness, no local focal weakness patient has minimal ankle edema, patient has been sitting too long,, Anemia/patient feels generalized weakness tiredness and significantly, patient has not been taking iron, CVA/patient has history of fall CVA, no seizure, no dysphagia, Back pain/patient has lower back discomfort, no change in status, no loss of bladder or bowel control, Obesity/patient is morbidly obese no history of hypothyroidism, Diabetes/no polydipsia polyuria hypoglycemia, no hypoglycemia, no gastroparesis, Review of Systems Const: No Fever, no chills, no Wt. loss, no Fatigue, normal appetite, no diaphoresis. Eyes: No pain, no discharge, no redness, no visual change, no foreign body. ENT: No pain, no bleeding, no congestion, no sore throat, no dysphagia, no discharge or rhinitis. Lymph: No adenopathy, no tender nodes, no lymphedema. Resp: No SOB, no cough, no sputum, no wheezing, no chest pain. CV: No chest pain, no palpitaions, no CONTE, no PND, no edema. GI: Normal appetite, epigastric pain and distention, patient has a heartburn, 8/ 10,, no nausea, no vomiting, no diarrhea, no blood, no constipation. : No frequency, no urgency, no dysuria, no hematuria, no flank pain, no discharge, no bleeding. Musc: No bone/joint pain, no back pain, no neck pain, no knee pain, no restricted ROM. Skin: No rash, no skin lesions, no erythema, no laceration, no bruising, no pruritus. Neuro: No RUSSELL, no dizziness, no syncope, no seizure, no focal-weakness. Endo: No polyuria, no polydypsia, no dry-skin, no temp-intolerance. Psych: No hallucinations, no depression, no anxiety, no suicidal ideation. Ext: Bilateral minimal ankle edema, no pain, no ulcer, no weakness. Physical Exam Vital Signs Date Time Temp Pulse Resp B/P Pulse Ox O2 Delivery O2 Flow Rate FiO2 04/13/16 15:54 98.6 82 18 122/64 94 Room Air General Appearance: A 65 year-old female who appears well-developed, well- nourished, in no acute distress. HEENT: Head normocephalic, atraumatic. Pupils equal, round, reactive to light and accommodate. Sclerae are no jaundice. Nasal turbinates pink without erythema or nasal discharge. Mucous membranes pink and moist without lesions. Oropharynx clear without any exudate or discharge. NECK: Supple. Trachea midline, No thyromegaly, No cervical lymphadenopathy, No mass, No carotid bruits, No JVD, Carotid pulses 2+ bilaterally. PULMONARY: Clear to auscultaion bilaterally, No retractions, Chest expansion symmetric bilaterally, no rales, no ronchi, no dulness on percussion. CARDIAC: Normal SI and S2, Regular rate and rythm, no murmur, gallop, or rub. GASTROINTESTINAL: Abdomen is soft, epigastric distention and discomfort,, Non Rigid, No distention, Positive bowel sounds x4 quadrants, Liver normal. SKIN: Warm, dry, no rash, no bruise, no echmosis. EXTREMITIES: Bilateral lower extremities minimal edema, no phlabitus, pulse palpable, no contracture. MUSCULOSKELETAL: Spine Normal, Non-tender, Normal range of motion, No swelling, no deformity, no clubbing, or cyanosis, the patient has no edema to bilateral lower extremities, dorsalis pedis pulses palpable bilaterally. NEUROLOGIC: The patient is awake, alert, oriented, responding to yes/no questions appropriately, moving all extremities, cranial nerve intact, normal strenght, normal power, normal coordination, normal gait. Allergies Coded Allergies: No Known Allergies (Verified Allergy, Mild, 04/03/16) PMH Diabetes/hyperlipidemia/hypertension/CVA/status post cholecystectomy, CHF/ASHD Social Hx No smoking no drinking, no drugs, Family Hx Noncontributory Patient History: Endocrine and metabolic disease 32 MOTHER Hypertension 33 MOTHER Assessment/Plan Impression Abdominal pain/diverticulosis/atypical chest pain/hyperlipidemia/hypertension/ anemia/CVA/back pain/obesity/diabetes Plan Patient education done about diabetes hypertension, control the weight, control the blood pressure, control the blood sugar, increase activity, lose weight, Risk of MA CVA and sudden explained, Patient has mild ankle edema, reduce fluid intake, discussed with the patient, Patient has still antibiotic left, patient is taking, patient will finish, and then will recheck again, Patient encouraged to follow with the primary care physician, Patient has severe heartburn, 10/07, patient has been taking previously taking omeprazole, nor relief, patient has been taking one year, patient to Nexium, slight relief, patient will pay for Nexium, if he needs to, Nexium 40 mg daily #30 Patient explained if ankle edema get worse will start diuretics, patient does have diuretics,, at home, patient also advised to bring the blood pressure and blood sugar readings, Medications Home Meds Active Scripts Metronidazole* (Flagyl*) 500 Mg Tablet, 500 MG PO BID for 7 Days, TAB Prov:FEDERICO WIGGINS CREDIT CASHIER 04/07/16 Ciprofloxacin Hcl* (Ciprofloxacin Hcl*) 500 Mg Tablet, 500 MG PO BID for 7 Days , #14 TAB Prov:FEDERICO WIGGINS NP 04/07/16 Ferrous Sulfate* (Ferrous Sulfate*) 325 Mg Tabec, 325 MG PO BID for 30 Days, TAB Prov:FEDERICO WIGGINS NP 04/07/16 Ondansetron Hcl* (Zofran*) 4 Mg Tablet, 4 MG PO Q6H for NAUSEA AND/OR VOMITING, #15 TAB Prov:WILLIS PANTOJA MD 03/28/16 Reported Medications Meclizine Hcl* (Meclizine Hcl*) 25 Mg Tablet, 12.5 MG PO Q8H Y for DIZZINESS, TAB 04/03/16 Apixaban* (Eliquis*) 2.5 Mg Tablet, 2.5 MG PO BID, TAB 04/03/16 Methadone Hcl* (Methadone*) 10 Mg Tab, 45 MG PO DAILY, TAB 08/05/15 Nifedipine* (Nifedical XL*) 60 Mg/Bottle Tab.osm.24, 60 MG PO DAILY, TAB 05/15/14 Atorvastatin Calcium* (Atorvastatin Calcium*) 20 Mg Tablet, 20 MG PO HS, TAB 05/15/14 Furosemide* (Furosemide*) 20 Mg Tablet, 20 MG PO QAM, TAB 05/15/14 Discontinued Scripts Metronidazole* (Flagyl*) 500 Mg Tablet, 500 MG PO QID for 10 Days, TAB Prov:WILLIS PANTOJA MD 03/28/16 Levofloxacin* (Levaquin*) 750 Mg Tablet, 750 MG PO DAILY for 10 Days, TAB Prov:WILLIS PANTOJA MD 03/28/16 IVANNA SWEENEY MD Apr 13, 2016 16:04
== END 2016-04-13 17:00 | disposition home or self-care (01) ==
LOC: DCC 15:49
PROVIDERS: ATTEND Internal Medicine
DX: K57.90 Diverticulosis of intestine, part unspecified, without perforation or abscess without bleeding (principal); R10.9 Unspecified abdominal pain; R07.89 Other chest pain; E78.5 Hyperlipidemia, unspecified; I10 Essential (primary) hypertension; D64.9 Anemia, unspecified; M54.9 Dorsalgia, unspecified; E66.9 Obesity, unspecified; E11.9 Type 2 diabetes mellitus without complications; I63.9 Cerebral infarction, unspecified
CPT/HCPCS: G0463

== ENCOUNTER 2016-04-21 22:26 | Inpatient (IN) | payer OTHER ==
[~2016-04-21] VITALS: Ht 177.8 cm; Wt 116.9 kg
[2016-04-22] VITALS (24 sets, daily range): BP systolic 110–187; BP diastolic 16–172; PULSE 48–95; RESP 8–23; TEMP 97.8; Ht 177.8 cm; Wt 116.9 kg
--- NOTE | 2016-04-22 01:07 | ERA ---
ER Documentation Chief Complaint Date/Time DATE: 04/22/16 TIME: 01:06 Chief Complaint Headache progressing and is on medication for blood clots HPI The patient is a 65-year-old male, presenting to the ER because of severe left occipital headache. He missed 2 days of Eliquis and restarted about 2 days ago. The headache is 8/10, no aggravating or relieving factor. He has similar headache previously. He denies fever, chills, neck pain, chest pain, dyspnea, abdominal pain, vomiting, dysuria, diarrhea. He smokes socially, denies drinking Past medical history: Hypertension, diabetes mellitus, history of CHF, dyslipidemia, anemia, history of sagittal sinus thrombosis, chronic low back pain Past surgical history: Cholecystectomy ROS All systems reviewed and are negative except as per history of present illness. Allergies Allergies: Coded Allergies: Unknown: Unable to obtain (Unverified , 04/22/16) PMhx/Soc History of Surgery: No Anesthesia Reaction: No Hx Neurological Disorder: No Hx Respiratory Disorders: No Hx Cardiac Disorders: Yes (HTN) Hx Psychiatric Problems: No Hx Miscellaneous Medical Probl: Yes (diabetes, clots ) Hx Alcohol Use: No Hx Tobacco Use: No Smoking Status: Former smoker Physical Exam Vitals Vital Signs Date Time Temp Pulse Resp B/P Pulse Ox O2 Delivery O2 Flow Rate FiO2 04/22/16 05:41 74 16 142/73 95 Room Air 04/22/16 04:49 50 10 99/51 98 Room Air 04/22/16 02:10 67 13 119/70 100 04/22/16 00:47 61 16 114/66 100 Room Air 04/21/16 23:00 97.6 61 18 118/69 96 Physical Exam Const: No acute distress. Head: Atraumatic. Eyes: Normal Conjunctiva. ENT: Normal External Ears, Nose and Mouth. Neck: Full range of motion. No meningismus. Resp: Clear to auscultation bilaterally. Cardio: Regular rate and rhythm, no murmurs. Abd: Soft, non distended, normal bowel sounds, non tender. Skin: No petechiae or rashes. Back: No midline or flank tenderness. Ext: No cyanosis, or edema. Neur: Awake and alert. No focal deficit Psych: Normal Mood and Affect. Result Diagram: 04/22/16 0300 2/23/17 0300 Results 24 hrs Laboratory Tests Test 04/22/16 03:00 04/22/16 04:50 Activated Partial Thromboplast Time 37.8Sec Anion Gap 16 Basophils # 0.010^3/ul Basophils % 0.3% Blood Morphology Comment Blood Urea Nitrogen 14mg/dl Calcium Level 8.7mg/dl Carbon Dioxide Level 28mmol/L Chloride Level 102mmol/L Cholesterol Level 104mg/dl Cholesterol/HDL Ratio 3.2RATIO Creatinine 1.30mg/dl Eosinophils # 0.210^3/ul Eosinophils % 2.0% Glucose Level 99mg/dl HDL Cholesterol 32mg/dl Hematocrit 32.7% Hemoglobin 10.4g/dl INR International Normalized Ratio 1.19 LDL Cholesterol, Calculated 39mg/dl Lymphocytes # 2.610^3/ul Lymphocytes % 23.9% Mean Corpuscular Hemoglobin 25.2pg Mean Corpuscular Hemoglobin Concent 31.8g/dl Mean Corpuscular Volume 79.1fl Mean Platelet Volume 8.6fl Monocytes # 0.910^3/ul Monocytes % 8.3% Neutrophils # 7.110^3/ul Neutrophils % 65.5% Nucleated Red Blood Cells # 0.010^3/ul Nucleated Red Blood Cells % 0.0/100WBC Platelet Count 41477^3/UL Potassium Level 3.5mmol/L Prothrombin Time 15.2Sec Prothrombin Time Ratio 1.2 Red Blood Count 4.1310^6/ul Red Cell Distribution Width 20.0% Sodium Level 142mmol/L Triglycerides Level 163mg/dl Troponin I < 0.010ng/ml < 0.010ng/ml White Blood Count 10.810^3/ul Current Medications Medications (Trade) Dose Ordered Sig/Ash Route PRN Reason Start Time Stop Time Status Last Admin Dose Admin Sodium Chloride (NS) 500 ml @ 500 mls/hr Q1H ONCE IV 04/22/16 01:30 04/22/16 02:29 DC 04/22/16 03:28 Acetaminophen/ Hydrocodone Bitart (Kiron (10/325)) 1 tab ONCE ONCE PO 04/22/16 02:30 04/22/16 02:31 DC Ondansetron HCl (Zofran Odt) 4 mg ONCE STAT ODT 04/22/16 02:11 04/22/16 02:12 DC Ondansetron HCl (Zofran Inj) 4 mg ONCE STAT IV 04/22/16 02:51 04/22/16 02:53 DC 04/22/16 03:27 Morphine Sulfate 2 mg 2 mg ONCE STAT IV 04/22/16 02:51 04/22/16 02:53 DC 04/22/16 03:27 Sodium Chloride (NS) 1,000 ml @ 75 mls/hr [id number] IV 04/22/16 03:15 04/22/16 04:23 Ondansetron HCl (Zofran Inj) 4 mg Q6H PRN IV NAUSEA AND/OR VOMITING 04/22/16 03:30 Nitroglycerin (Nitroglycerin (Sl Tab) 0.4 Mg) 1 tab Q5M PRN SL CHEST PAIN 04/22/16 03:30 Acetaminophen (Tylenol Supp) 650 mg Q4H PRN [place] PAIN LEVEL 1-3 OR FEVER 04/22/16 03:30 Morphine Sulfate (morphine) 2 mg Q4H PRN IV PAIN LEVEL 7-10 04/22/16 03:30 Lorazepam (Ativan) 1 mg Q2H PRN IV ANXIETY 04/22/16 03:30 Docusate Sodium (Colace) 100 mg Q12H PRN PO CONSTIPATION 04/22/16 03:30 Famotidine (Pepcid Iv) 20 mg Q12 IV 04/22/16 09:00 Labetalol HCl (Labetalol) 10 mg Q10M PRN IV ELEVATED BLOOD PRESSURE 04/22/16 03:30 Acetaminophen (Tylenol Tab) 650 mg Q4H PRN PO TEMP GREATER THAN 99.6F 04/22/16 03:30 Docusate Sodium 100 mg 100 mg BID PO 04/22/16 09:00 UNV Prothrombin Complex Concent (Human)/N/A (Kcentra Kit/ Evac Container) 160 ml @ 8.4 mls/min ONCE ONCE IV 04/22/16 03:45 04/22/16 04:04 DC 04/22/16 04:00 Hydromorphone HCl (Dilaudid) 1 mg Q6H PRN IV PAIN 04/22/16 03:30 04/22/16 04:36 Procedures/[place] [address] Radiology Main Line: [phone] DIAGNOSTIC IMAGING REPORT Patient: GARCIA WANG : 1950 Age: 65 Sex: M [id number] DOS: 04/22/16 0112 Ordering MD: GARCIA ORDONEZ MD Location: E/R Room/Bed: PROCEDURE: CT BRAIN WITHOUT CONTRAST CLINICAL INDICATION: 65-year-old male with headaches. TECHNIQUE: The study was performed utilizing [employer] 64-slice CT scanner. Direct axial sections were obtained from the foramen magnum to the vertex without the use of intravenous contrast material. Sagittal and coronal reformations were obtained. Automated exposure control and iterative reconstruction techniques were utilized for this examination. The images were viewed on a PACS workstation. CTD/vol = 49.9 mGy; Total Exam DLP = 817 point a mGy-cm. COMPARISON: None. FINDINGS: There is symmetrical posterior parasagittal increased density adjacent to the superior sagittal sinus continuing over the superior aspect of the tentorium. With the maximal thickness on the right side of 5 mm and on the left side of 7 mm. This is most suggestive of extra-axial blood. This may be secondary to superior sagittal sinus thrombosis. There is mild prominence of the sulci and cisternal spaces consistent with volume loss There is no evidence for midline shift. There are periventricular areas of decreased density consistent with microangiopathic ischemic changes. Calcifications are seen within the intracranial carotid arteries bilaterally. The bony calvarium is intact. The partially visualized paranasal sinuses and mastoid air cells are without significant abnormal soft tissue. IMPRESSION: 1. Mild diffuse volume loss. 2. Microangiopathic ischemic changes. 3. Symmetrical posterior parasagittal extra-axial blood surrounding the superior sagittal sinus continuing over the superior aspect of the tentorium bilaterally in the subdural space consistent with subdural hematomas. This may be secondary to thrombosis of the superior sagittal sinus. Further evaluation with an MRI of the brain and MR venogram is suggested. 4. Vascular calcifications. CRITICAL RESULTS: A call report was made to [facility] ER Dr. Ordonez on March at 02:45 a.m. .Cecilio Hanna MD, Date Time Electronically viewed and signed by .Cecilio Hanna MD, on 04/22/2016 02:53 .M/ CC: GARCIA ORDONEZ MD Consultation: I discussed the patient with the on-call neurosurgeon Dr Corey at 3 AM. He was made aware of the lab, the patient condition, the CT scan finding, recommended Kcentra I have discussed and ordered with the pharmacist for Kcentra 50 unit/kg IV at 3: 10 am MEDICAL MAKING DECISION: The patient is a 65-year-old male, presenting with acute subdural hematoma. He will be admitted to ICU Departure Diagnosis: Primary Impression: Subdural hematoma Additional Impression: Anemia Condition: Critical Comments I discussed the findings with the patient. I discussed the patient with the hospitalist Dr. Pro who was made aware of the lab, the treatment, the patient condition and my discussion with the neurosurgeon. The patient is admitted to ICU Critical Care: Time: 35 minutes excluding all billable procedures. Treatments/Evaluations: Close monitoring and treatment of unstable vital signs, cardiorespiratory, and neurologic status, while maintaining tight balance of fluid, respiratory, and cardiac interventions. GARCIA ORDONEZ MD Apr 22, 2016 01:06
[2016-04-22] MEDS ORDERED: SOD CHLORIDE 0.9% 500 ML IV ONE (01:30)
[2016-04-22] MEDS ORDERED: ONDANSETRON (ODT) 4 MG TAB ODT STA (02:11)
[2016-04-22] MEDS ORDERED: HYDROCODONE/APAP (10/325) TAB PO ONE (02:30)
[2016-04-22] MEDS ORDERED: ONDANSETRON 4 MG INJ IV STA (02:51)
[2016-04-22] MEDS ORDERED: morphine 4 MG/ML VIAL IV STA (02:51)
--- NOTE | 2016-04-22 02:53 | RADRPT ---
PROCEDURE: CT BRAIN WITHOUT CONTRAST CLINICAL INDICATION: 65-year-old male with headaches. TECHNIQUE: The study was performed utilizing [employer] Integrated VCT 64-slice CT scanner. Direct axial sections were obtained from the foramen magnum to the vertex without the use of intravenous contrast material. Sagittal and coronal reformations were obtained. Automated exposure control and iterative reconstruction techniques were utilized for this examination. The images were viewed on a PACS wor kstation. CTD/vol = 49.9 mGy; Total Exam DLP = 817 point a mGy-cm. COMPARISON: None. FINDINGS: There is symmetrical posterior parasagittal increased density adjacent to the superior sagittal sinu s continuing over the superior aspect of the tentorium. With the maximal thickness on the right thiago e of 5 mm and on the left side of 7 mm. This is most suggestive of extra-axial blood. This may be secondary to superior sagittal sinus thrombosis. There is mild prominence of the sulci and cisternal spaces consistent with volume loss There is no evidence for midline shift. There are periventricu lar areas of decreased density consistent with microangiopathic ischemic changes. Calcifications are seen within the intracranial carotid arteries bilaterally. The bony calvarium is intact. The partia lly visualized paranasal sinuses and mastoid air cells are without significant abnormal soft tissue. IMPRESSION: 1. Mild diffuse volume loss. 2. Microangiopathic ischemic changes. 3. Symmetrical posterior parasagittal extra-axial blood surrounding the superior sagittal sinus con tinuing over the superior aspect of the tentorium bilaterally in the subdural space consistent with subdural hematomas. This may be secondary to thrombosis of the superior sagittal sinus. Further francisco luation with an MRI of the brain and MR venogram is suggested. 4. Vascular calcifications. CRITICAL RESULTS: A call report was made to [facility] ER Dr. Brooks on April 22, 2016 at 02:45 a.m. .Cecilio Hanna MD, Date Time Electronically viewed and signed by .Cecilio Hanna MD, MD on 04/22/2016 02:53 .M/
[2016-04-22] MEDS ORDERED: LORAZEPAM 2 MG INJ IV PRN (03:30)
[2016-04-22] MEDS ORDERED: ACETAMINOPHEN 325 MG TAB PO PRN (03:30)
[2016-04-22] MEDS ORDERED: NITROGLYCERIN (SL) 0.4 MG TAB SL PRN (03:30)
[2016-04-22] MEDS ORDERED: DOCUSATE SODIUM 100 MG CAP PO PRN (03:30)
[2016-04-22] MEDS ORDERED: ACETAMINOPHEN 650 MG SUPP PR PRN (03:30)
[2016-04-22] MEDS ORDERED: ONDANSETRON 4 MG INJ IV PRN (03:30)
[2016-04-22] MEDS ORDERED: LABETALOL HCL 20MG INJ IV PRN (03:30)
[2016-04-22] MEDS ORDERED: EVAC CONTAINER IV ONE (03:45)
[2016-04-22] MEDS ORDERED: HUMAN PROTHROMBIN COMPLX IV ONE (03:45)
--- NOTE | 2016-04-22 03:45 | HP ---
Date/Time of Note Date/Time of Note DATE: 04/22/16 TIME: 03:36 Assessment/Plan VTE Prophylaxis VTE Prophylaxis Intervention: contraindicated, SCD's VTE Contraindication Reason: bleeding Assessment/Plan Assessment/Plan 65 yo unfortunate male with a past medical history of superior sagittal sinus thrombosis recently placed on eliquis off of coumadin, essential hypertension, CHF with diastolic dysfunction, smoking abuse, who presents with worsening headache. 1. Headache 2/2 to subdural hematomas - will admit the patient to the ICU, consult neurosurgery, obtain a MRI brain with contrast and venogram, NPO, IVF, maintain sbp < 180, neurovascular checks, fall precautions, pain management. 2. CHF -diastolic dysfunction - monitor acute changes, lasix prn 3. Acute renal insufficiency - 2/2 anemia/ATN - renally adjust medications, avoid nephrotoxins 4. Essential hypertension - maintain sbp < 180 5. GI ppx - pepcid IV 6. DVT ppx - scds answered all of his questions. as per clinical course. prognosis guarded. this critical care note took greater than 1 hour to complete HPI/ROS Admit Date/Time Admit Date/Time 04/22/2016, 3:36 am Hx of Present Illness 65 yo unfortunate male with a past medical history of superior sagittal sinus thrombosis recently placed on eliquis off of coumadin, essential hypertension, CHF with diastolic dysfunction, smoking abuse, who presents with worsening headache. He states that headache initially started about 2-3 weeks ago, and over the last 4 days progressively intensified and worsened. The headache is located left periorbital region, radiating to the parietal and occipital regions as well. Associated with dizziness, nausea and blurriness in vision. He denies any loss of consciousness, chest pain, shortness of breath, urinary/ bowel incontinence, seizure like activity, fevers/chills, direct trauma, or other constitutional symptoms. ED course: pain medications, K-centra ROS 14 point review of systems completed, please refer to HPI for any positive findings PMH/Family/Social Past Medical History superior sagittal sinus thrombosis Medical History: congestive heart failure, hypertension Past Surgical History Past Surgical Hx: cholecystectomy Family History Significant Family History: heart disease (mother's side), diabetes (father), hypertension (father), vascular disease (father ) Social History Alcohol Use: none Smoking Status: Current every day smoker Drug Use: none (4 cig/day x 50 years) Exam/Review of Systems Vital Signs Vitals Vital Signs Date Time Temp Pulse Resp B/P Pulse Ox O2 Delivery O2 Flow Rate FiO2 04/22/16 02:10 67 13 119/70 100 04/22/16 00:47 Room Air 04/21/16 23:00 97.6 Exam Exam Gen Antonio: mild to moderate distress 2/2 to headache, AAOx4 HEENT: NC/AT, PERRLA, EOMI, no pharyngeal erythema, no tonsillar exudates, no lymphadenopathy, no JVD, no carotid bruits NECK: supple, no thyromegaly THORAX: symmetrical, no obvious deformities CV: S1S2, RRR, no M/G/R Lungs: CTAB no W/C/R/R Abd: soft, NT/ND, +BS, no rebound, no guarding, neg HSM EXT: no edema, no ecchymosis, no clubbing, FROM Neuro: CN II-XII grossly intact, no focal deficits, DTR's equal and symmetrical , cannot assess rhombergs 2/2 to dizziness Psych: anxious Skin: C/D/I Medications Medications Current Medications Sodium Chloride (NS) 1,000 ml @ 75 mls/hr [id number] IV ; Start 04/22/16 at 03:15 ; Status UNV Ondansetron HCl (Zofran Inj) 4 mg Q6H PRN IV NAUSEA AND/OR VOMITING; Start at 03:30; Status UNV Nitroglycerin (Nitroglycerin (Sl Tab) 0.4 Mg) 1 tab Q5M PRN SL CHEST PAIN; Start 04/22/16 at 03:30; Status UNV Acetaminophen (Tylenol Supp) 650 mg Q4H PRN [place] PAIN LEVEL 1-3 OR FEVER; Start 04/22/16 at 03:30; Status UNV Morphine Sulfate (morphine) 2 mg Q4H PRN IV PAIN LEVEL 7-10; Start 04/22/16 at 03:30; Status UNV Lorazepam (Ativan) 1 mg Q2H PRN IV ANXIETY; Start 04/22/16 at 03:30; Status UNV Docusate Sodium (Colace) 100 mg Q12H PRN PO CONSTIPATION; Start 04/22/16 at 03: 30; Status UNV Famotidine (Pepcid Iv) 20 mg Q12 IV ; Start 04/22/16 at 09:00; Status UNV Labetalol HCl (Labetalol) 10 mg Q10M PRN IV ELEVATED BLOOD PRESSURE; Start at 03:30; Status UNV Acetaminophen (Tylenol Tab) 650 mg Q4H PRN PO TEMP GREATER THAN 99.6F; Start at 03:30; Status UNV Docusate Sodium 100 mg 100 mg BID PO ; Start 04/22/16 at 09:00; Status UNV Prothrombin Complex Concent (Human)/N/A (Kcentra Kit/ Evac Container) 160 ml @ 8.4 mls/min ONCE ONCE IV ; Start 04/22/16 at 03:45; Stop 04/22/16 at 04:[address] brain IMPRESSION: 1. Mild diffuse volume loss. 2. Microangiopathic ischemic changes. 3. Symmetrical posterior parasagittal extra-axial blood surrounding the superior sagittal sinus continuing over the superior aspect of the tentorium bilaterally in the subdural space consistent with subdural hematomas. This may be secondary to thrombosis of the superior sagittal sinus. Further evaluation with an MRI of the brain and MR venogram is suggested. 4. Vascular calcifications. ORIANA DANIELS MD Apr 22, 2016 03:45
[2016-04-22] MEDS: SOD CHLORIDE 0.9% 1,000 ML IV SCH ×2 (04:23→19:10)
[2016-04-22 04:31] LABS: CHOL/HDL RATIO 3.2 RATIO
[2016-04-22 04:34] LABS: BASOPHILS % 0.3 % (0.0-2.0); CONDITION 1; EOSINOPHILS # 0.2 10^3/ul (0.0-0.5); HEMATOCRIT 32.7 % (42.0-52.0); HEMOGLOBIN 10.4 g/dl (14.0-18.0); LH ANALYZER COMMENTS 1; LYMPHOCYTES # 2.6 10^3/ul (0.8-2.9); LYMPHOCYTES % 23.9 % (15.0-51.0); MEAN CORPUSCULAR HEMOGLOBIN 25.2 pg (29.0-33.0); MEAN CORPUSCULAR HGB CONC 31.8 g/dl (32.0-37.0); MEAN CORPUSCULAR VOLUME 79.1 fl (82.0-101.0); MEAN PLATELET VOLUME 8.6 fl (7.4-10.4); MONOCYTE # 0.9 10^3/ul (0.3-0.9); MONOCYTES % 8.3 % (0.0-11.0); NEUTROPHIL # 7.1 10^3/ul (1.6-7.5); NEUTROPHILS % 65.5 % (39.0-77.0); PLATELET COUNT 295 10^3/UL (140-440); RED BLOOD COUNT 4.13 10^6/ul (4.70-6.10); UNCORRECTED WBC 10.8 10^3/ul (4.8-10.8); WHITE BLOOD COUNT 10.8 10^3/ul (4.8-10.8)
[2016-04-22] MEDS: HYDROmorphONE 1 MG/ML SYG IV PRN ×3 (04:36→19:09)
[2016-04-22 04:40] LABS: PARTIAL THROMBOPLASTIN TIME 37.8 Sec (25.0-35.0)
[2016-04-22 04:47] LABS: INR 1.19; PROTIME 15.2 Sec (12.2-14.2); PT RATIO 1.2
[2016-04-22 04:59] LABS: POTASSIUM 3.5 mmol/L (3.5-5.1)
[2016-04-22 05:02] LABS: CREATININE 1.3 mg/dl (0.61-1.24)
[2016-04-22 05:03] LABS: CALCIUM 8.7 mg/dl (8.4-10.2)
--- NOTE | 2016-04-22 07:22 | CONS ---
Date/Time of Note Date/Time of Note DATE: 04/22/16 TIME: 07:15 Assessment/Plan Assessment/Plan Chief Complaint/Hosp Course subdural hemorrhage Problems: Additional Assessment/Plan no indication for neurosurgical intervention. reverse eloquis (kcentra given in ed) and repeat ct in am. final determination about resumption of anticoagulation per stroke neurology, but in any event anti-coagulation absolutely contraindicated at the present time. thanks Consultation Date/Type/Reason Admit Date/Time 04/22/2016, 3:36 am Date of Consultation: Apr 22, 2016 Type of Consultation: Neurosurgery Reason for Consultation subdural hemorrhage Hx of Present Illness 65 year old male with hx of spontaneous sagittal sinus thrombosis three years ago dx at [place], on anti-coagulation ever since, presents with progressive ng and ct showing tentorial sdh.mri/mrv pending. other than headache patient has no neurologic complaints. he is a good historian with a middle school education, disabled acosta. denies any significant pmhx other than above. Past Medical History Medical History: congestive heart failure, hypertension Past Surgical History Past Surgical Hx: cholecystectomy Social History Alcohol Use: none Smoking Status: Current every day smoker Drug Use: none (4 cig/day x 50 years) Exam/Review of Systems Vital Signs Vitals Vital Signs Date Time Temp Pulse Resp B/P Pulse Ox O2 Delivery O2 Flow Rate FiO2 04/22/16 05:41 74 16 142/73 95 Room Air 04/21/16 23:00 97.6 Intake and Output 04/21/16 04/21/16 04/22/16 15:00 23:00 07:00 Intake Total 660 ml Output Total 1075 ml Balance -415 ml Exam On neurologic exam the patient's speech is fluent and appropriate. his memory for recent and distant events appears to be intact. his fund of knowledge appears c/w stated level of education. he is cooperative with the exam and relates the details of his own history. his affect is appropriate. his cranial nerve exam demonstrates no deficits. his motor exam is 5/5 throughout. f->n intact bilaterally. gait not assessed. Results Result Diagram: 04/22/16 0300 04/22/16 0300 Results 24 hrs Laboratory Tests Test 04/22/16 03:00 04/22/16 04:50 Activated Partial Thromboplast Time 37.8 H Anion Gap 16 Basophils # 0.0 Basophils % 0.3 Blood Morphology Comment Blood Urea Nitrogen 14 Calcium Level 8.7 Carbon Dioxide Level 28 Chloride Level 102 Cholesterol Level 104 Cholesterol/HDL Ratio 3.2 Creatinine 1.30 H Eosinophils # 0.2 Eosinophils % 2.0 Glucose Level 99 HDL Cholesterol 32 Hematocrit 32.7 L Hemoglobin 10.4 L INR International Normalized Ratio 1.19 LDL Cholesterol, Calculated 39 Lymphocytes # 2.6 Lymphocytes % 23.9 Mean Corpuscular Hemoglobin 25.2 L Mean Corpuscular Hemoglobin Concent 31.8 L Mean Corpuscular Volume 79.1 L Mean Platelet Volume 8.6 Monocytes # 0.9 Monocytes % 8.3 Neutrophils # 7.1 Neutrophils % 65.5 Nucleated Red Blood Cells # 0.0 Nucleated Red Blood Cells % 0.0 Platelet Count 295 Potassium Level 3.5 Prothrombin Time 15.2 H Prothrombin Time Ratio 1.2 Red Blood Count 4.13 L Red Cell Distribution Width 20.0 H Sodium Level 142 Triglycerides Level 163 H Troponin I < 0.010 < 0.010 White Blood Count 10.8 Medications Medications Current Medications Sodium Chloride (NS) 1,000 ml @ 75 mls/hr [id number] IV Last administered on 04/22t 04:23; Admin Dose 75 MLS/HR; Start 04/22/16 at 03:15 Ondansetron HCl (Zofran Inj) 4 mg Q6H PRN IV NAUSEA AND/OR VOMITING; Start at 03:30 Nitroglycerin (Nitroglycerin (Sl Tab) 0.4 Mg) 1 tab Q5M PRN SL CHEST PAIN; Start 04/22/16 at 03:30 Acetaminophen (Tylenol Supp) 650 mg Q4H PRN [place] PAIN LEVEL 1-3 OR FEVER; Start 04/22/16 at 03:30 Morphine Sulfate (morphine) 2 mg Q4H PRN IV PAIN LEVEL 7-10; Start 04/22/16 at 03:30 Lorazepam (Ativan) 1 mg Q2H PRN IV ANXIETY; Start 04/22/16 at 03:30 Docusate Sodium (Colace) 100 mg Q12H PRN PO CONSTIPATION; Start 04/22/16 at 03: 30 Famotidine (Pepcid Iv) 20 mg Q12 IV ; Start 04/22/16 at 09:00 Labetalol HCl (Labetalol) 10 mg Q10M PRN IV ELEVATED BLOOD PRESSURE; Start at 03:30 Acetaminophen (Tylenol Tab) 650 mg Q4H PRN PO TEMP GREATER THAN 99.6F; Start at 03:30 Docusate Sodium (Colace) 100 mg BID PO ; Start 04/22/16 at 09:00; Status UNV Hydromorphone HCl (Dilaudid) 1 mg Q6H PRN IV PAIN Last administered on t 04:36; Admin Dose 1 MG; Start 04/22/16 at 03:30 KADE MCCLENDON MD Apr 22, 2016 07:21
[2016-04-22] MEDS ORDERED: NIFE60TA7 PO (07:36)
[2016-04-22] MEDS ORDERED: ATEN50TA PO (07:36)
[2016-04-22] MEDS ORDERED: FURO20TA3 PO (07:37)
[2016-04-22] MEDS ORDERED: APIX2.5T PO (07:37)
[2016-04-22] MEDS ORDERED: METH-417 PO (07:38)
[2016-04-22] MEDS ORDERED: DOCU240C14 PO (09:56)
[2016-04-22] MEDS ORDERED: ATOR20TA38 PO (09:56)
[2016-04-22] MEDS: FAMOTIDINE 20 MG INJ IV SCH ×2 (10:49→20:38)
[2016-04-22] MEDS: DOCUSATE SODIUM 100 MG CAP PO SCH ×2 (10:51→20:38)
--- NOTE | 2016-04-22 12:00 | QN ---
Documentation Comment The patient was seen. Labs reviewed. Plan of care was explained to the patient. There is no plan for any surgical intervention. Will start the patient on a diet. Case discussed with Dr. Ledezma. FEDREICO WIGGINS NP Apr 22, 2016 12:00
[2016-04-22] MEDS: morphine 2 MG INJ IV PRN ×2 (13:14→22:54)
--- NOTE | 2016-04-22 18:10 | RADRPT ---
PROCEDURE: MR Brain with and without contrast. CLINICAL INDICATION: Headaches, abnormal CT brain showing possible subdural hematoma and sagittal sinus thrombosis. TECHNIQUE: An MRI of the brain was performed on a GE short bore 3 natalya scanner utilizing the foll owing sequences: Sagittal T1 weighted, axial T2 weighted, axial diffusion weighted (EPI technique b =1000), axial ADC mapping, axial FLAIR, coronal GRE, and post contrast coronal and axial T1 weighted . 10 cc of Magnevist was given intravenously without complication. COMPARISON: CT brain 04/22/2016. This is also correlated with concurrently performed MR venogram. FINDINGS: As suspected from CT, there is an abnormal flow void within the posterior superior sagittal sinus as well as transverse sinuses. The postcontrast images show relative poor enhancement of this portion of the dural sinuses. The dural sinuses in these locations do not appear enlarged and, in fact, th e transverse sinuses are somewhat small in size. 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 The mid and anterior aspect of the superior sagittal sinus is patent. The cortical veins are grossly patent as well. There is evidence of sign ificant dural thickening along the superior sagittal sinus and posterior falx extending along the te ntorium. These findings likely reflect dural thickening measuring up to 2 mm. A small component of blood products cannot be entirely excluded. There is no significant mass effect or midline shift. There is evidence of subtle focal diffusion weighted hyperintensity in the right parasagittal fronta l subcortical white matter with mixed ADC signal intensity and corresponding T2-weighted / FLAIR hyp erintensity. The findings likely reflect a small venous infarct. No other diffusion weighted abnor mality is are seen to suggest additional areas of ischemic change. There is no cisternal effacement . The ventricles and sulci are normal in size and configuration for age. A few small foci of incre ased T2 weighted/FLAIR signal intensity are seen in the deep and subcortical white matter, nonspecif ic in appearance. The signal intensity is normal within the brain stem and cerebellum. Normal flow voids are visible in the proximal intracranial arteries, indicating patency. The postcontrast imag es show no other areas of abnormal enhancement. IMPRESSION: 1. There is evidence of dural sinus thrombosis involving the posterior and inferior superior sagitt al sinus as well as the transverse sinuses bilaterally. There is dural thickening and enhancement s urrounding the sagittal sinus and transverse sinuses. There may be a small component of blood produ cts in these locations, though there appears to be primarily dural thickening. There is no signific ant mass effect or midline shift. 2. There is a very small, less than 1 cm, right posterior frontal parasagittal venous infarct. 3. Several small foci of increased T2 weighted/FLAIR signal intensity are seen primarily in the alphonse p and subcortical white matter, nonspecific in appearance though perhaps reflective of complicated migraines, hypertensive microvascular ischemic disease, sequela from prior traumatic or inflammatory insults. Comment: A call report was made to the patient's RN, Hailey, in the ICU at 6 p.m. on 04/22/[address] Torres. RPTAT: PP .Lottie Torres MD, MD Date Time Electronically viewed and signed by .Lottie Torres MD, on 04/22/2016 18:10 .H/
--- NOTE | 2016-04-22 18:17 | RADRPT ---
PROCEDURE: MR venogram Brain. CLINICAL INDICATION: Headaches, abnormal CT brain showing possible subdural hematoma and sagittal sinus thrombosis. TECHNIQUE: An MR venogram of the brain was performed on a GE short bore high-definition 3 natalya McPhyer 2-D [id number]-[id number] MR angiography technique. Source and MIP images were reviewed. COMPARISON: CT brain 04/22/2016. Also correlated with concurrently performed MRI brain 04/22/2016 . FINDINGS: There is loss of the normal flow related enhancement involving the posterior aspect of the superior sagittal sinus extending from the parietal region near the vertex all the way to the torcula herophi li. There is lack of flow related enhancement within both transverse sinuses. The sigmoid sinuses and jugular bulbs are patent but somewhat diminutive. The mid and anterior aspect of the superior s agittal sinus is patent with normal flow related enhancement. There is loss of the normal flow rela jack enhancement in the straight sinus. The cortical veins demonstrate normal flow related enhancemen t and appear grossly normal in size. IMPRESSION: 1. There is evidence of loss of the normal flow related enhancement involving the posterior and inf erior aspect of the superior sagittal sinus extending to the torcula herophili with loss of the norm al flow related enhancement of both transverse sinuses. There is also loss of the normal flow relat ed enhancement in the straight sinus. The remaining veins are normal or small in caliber as describ ed above. 2. These findings together with the MRI brain findings are suggestive of somewhat chronic thrombus in superior sagittal sinus, straight sinus, and both transverse sinuses. Comment: A call report was made to the patient's RN, Hailey, at 06:00 p.m. on 04/22/[address] Torres. .Lottie Torres MD, MD Date Time Electronically viewed and signed by .Lottie Torres MD, on 04/22/2016 18:17 .H/
[2016-04-23] VITALS (23 sets, daily range): BP systolic 103–148; BP diastolic 46–87; PULSE 55–74; RESP 10–26
--- NOTE | 2016-04-23 01:49 | CONS ---
DATE OF ADMISSION: 04/22/2016 DATE OF CONSULTATION: 04/22/2016 TYPE OF CONSULTATION: Neurology. Thank you, Dr. Pro, for your kind referral for evaluation of venous thrombosis and possible subdural hematomas. HISTORY OF PRESENT ILLNESS: The patient, according to the chart, presented with severe occipital headache. CAT scan of the head shows tentorial subdural hematomas which could be secondary to thrombosis in the superior sagittal sinus. Neurosurgeon saw the patient and recommended to obtain MRI and MRV of the brain and put a hold on patient's Eliquis. The patient has a history of sinus thrombosis 3 years ago and he is on anticoagulation. Anticoagulation was reversed in the hospital with prothrombin complex concentrate. Today on my questioning, the patient does not seem to be a reliable historian. He states that he has had headaches for a long time, once he said it has been 2 weeks, another time he answered me it was a year of intermittent headaches, usually every several days occipital or bifrontal for a few hours. 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 A small component of blood products cannot be entirely excluded. There is a very small, less than 1 cm, right posterior frontal parasagittal venous infarct and scattered white matter disease. MRV of the brain shows loss of normal flow related enhancement involving posterior inferior aspect of superior sagittal sinus with loss of flow in both transverse sinuses and in the right sinus. The veins are normal or small in caliber, as described in the body of the report. CURRENT MEDICATIONS: 1. Famotidine. 2. Colace. 3. Zofran. 4. Nitroglycerin p.r.n. 5. Labetalol p.r.n. OTHER MEDICAL PROBLEMS: Include congestive heart failure, renal insufficiency, hypertension. HOME MEDICATIONS: 1. Eliquis 2.5 b.i.d. 2. Atenolol. 3. Atorvastatin . 4. NIFEDIPINE. 5. Methadone 45 mg daily. 6. Furosemide. 7. Docusate. ALLERGIES: NONE. SOCIAL HISTORY: Cigarette smoker of less than a pack per day and no alcohol or drug use. FAMILY HISTORY: Noncontributory. LABORATORY DATA: Hemoglobin 10.4, hematocrit 32.7, low indices, normal hemoglobin and platelets. Chemistry: BUN 14, creatinine 1.3. Rest of basic metabolic panel within normal limits. PT 15, PTT 37.8 on admission. PHYSICAL EXAMINATION: VITAL SIGNS: Temperature 98.8, pulse 68, respirations 17, 124/55 blood pressure. GENERAL: Not in acute distress, lying in bed. HEENT: Normocephalic, atraumatic head. NECK: No carotid bruits. No thyromegaly. LUNGS: Clear to auscultation bilaterally. CARDIAC: Normal cardiac rhythm and sounds. ABDOMEN: Soft, nontender. EXTREMITIES: No cyanosis, clubbing or edema. NEUROLOGIC: He is lethargic but arousable by voice, oriented x1 only. He stated that he is at some democrat, but then I told him that he is in the hospital , he was able to tell me that it is [facility] and today is . He has fluent speech. Cranial nerve examination shows intact visual forman to visual threat bilaterally. Pupils sluggish from about 2 mm bilaterally. Extraocular movements intact without nystagmus. Symmetrical face. Preserved facial strength and sensation. Corneal reflexes present bilaterally. Tongue is in midline. Motor strength seems to be preserved in all extremities. Normal bulk and tone. Sensory examination grossly intact to light touch and pain. Deep tendon reflexes 2+ upper extremities, absent in lower extremities. Downgoing toes bilaterally. Coordination seems to be preserved on [id number] testing. No dysmetria or tremor. Gait was not assessed. IMPRESSION: Headache, not clear from the patient as he is somewhat confused, at least right now, if headache is chronic or acute; at least, he told me he had it for some time and on questioning he said it was about a year of headaches. I assume headache could be somewhat worse; that was the reason for him coming to the hospital this time. 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 CAT scan in the ER showed possible tentorial subdural hematomas and anticoagulation was stopped. His MRI also shows some tiny acute venous infarct on the right parasagittal area. MRI of the brain does not confirm presence of subdural hematoma, states that tentorium has a dural thickening and though a small amount of blood product cannot be excluded, but predominantly is dural thickening. I would like to run this case with stroke neurologist so I will call stroke neurologist and put an addendum after my conversation with the stroke neurologist. We will continue current treatment in the meantime. Repeat CAT scan of the head is scheduled for tomorrow in the morning. The patient will be followed by neurosurgeon, Dr. Corey, as well. Unclear etiology of thrombosis, if hypercoagulable state, than patient probably has to be put back on anticoagulation. Will send hypercoagulable blood work, also get records from [place] Thank you very much for this interesting consultation. Dictated By: ONDINA COOMBS/MARISA Conf#: [id number] DID#: [id number] MTDD
[2016-04-23] MEDS: HYDROmorphONE 1 MG/ML SYG IV PRN ×3 (03:36→20:16)
[2016-04-23] MEDS: SOD CHLORIDE 0.9% 1,000 ML IV SCH ×3 (05:54→23:46)
[2016-04-23 06:27] LABS: ADD SCAN DIFF NO
[2016-04-23 06:43] LABS: BASOPHILS % 0.1 % (0.0-2.0); EOSINOPHILS # 0.1 10^3/ul (0.0-0.5); EOSINOPHILS % 1.4 % (0.0-7.0); HEMATOCRIT 31.4 % (42.0-52.0); HEMOGLOBIN 9.9 g/dl (14.0-18.0); LYMPHOCYTES # 1.7 10^3/ul (0.8-2.9); LYMPHOCYTES % 23.6 % (15.0-51.0); MEAN CORPUSCULAR HEMOGLOBIN 24.8 pg (29.0-33.0); MEAN CORPUSCULAR HGB CONC 31.5 g/dl (32.0-37.0); MEAN CORPUSCULAR VOLUME 78.7 fl (82.0-101.0); MONOCYTE # 0.6 10^3/ul (0.3-0.9); MONOCYTES % 8.8 % (0.0-11.0); NEUTROPHIL # 4.6 10^3/ul (1.6-7.5); NEUTROPHILS % 65.8 % (39.0-77.0); PLATELET COUNT 173 10^3/UL (140-415); RED BLOOD COUNT 3.99 10^6/ul (4.70-6.10); RED CELL DISTRIBUTION WIDTH 18.1 % (11.5-14.5)
[2016-04-23 07:16] LABS: MEAN PLATELET VOLUME 10.8 fl (7.4-10.4)
[2016-04-23 08:37] LABS: ALBUMIN 3.4 g/dl (3.3-4.9)
[2016-04-23 08:38] LABS: POTASSIUM 3.6 mmol/L (3.5-5.1)
[2016-04-23 08:40] LABS: ALBUMIN/GLOBULIN RATIO 1.03; BILIRUBIN,INDIRECT 0.2 mg/dl (0-1.1); BILIRUBIN,TOTAL 0.2 mg/dl (0.2-1.3); CREATININE 1.03 mg/dl (0.61-1.24); TOTAL PROTEIN 6.7 g/dl (6.1-8.1)
[2016-04-23 08:41] LABS: CALCIUM 8.5 mg/dl (8.4-10.2); MAGNESIUM 1.8 mg/dl (1.7-2.5); PHOSPHORUS 3.5 mg/dl (2.5-4.9)
[2016-04-23 08:45] LABS: MAGNESIUM 1.8 mg/dl (1.7-2.5); PHOSPHORUS 3.5 mg/dl (2.5-4.9)
[2016-04-23] MEDS: FAMOTIDINE 20 MG INJ IV SCH ×2 (08:50→20:16)
[2016-04-23] MEDS: DOCUSATE SODIUM 100 MG CAP PO SCH (08:51)
--- NOTE | 2016-04-23 09:37 | CONS ---
Date/Time of Note Date/Time of Note DATE: 04/23/16 TIME: 09:07 Assessment/Plan Assessment/Plan Additional Assessment/Plan Addendum to yesterdays neurology consult case discussed with stroke neurologist last night, Tonya Hammond (i may misspell the name) who reviewed imaging studies. According to her small venous infarct could be not acute, as no ADC matching abnormality, also she said that presence of chronic thrombus is by itself not a indication for anticoagulation ( pt has been on x 3 years), unless he is in hypercoagulable state. I'll send hypercoagulable work up and also request records from [place]. ONDINA GAGE MD Apr 23, 2016 09:36
[2016-04-23] MEDS ORDERED: METHADONE 5 MG TAB PO SCH (10:00)
--- NOTE | 2016-04-23 10:44 | CONS ---
Date/Time of Note Date/Time of Note DATE: 04/23/16 TIME: 10:38 Consult Date/Type/Reason Admit Date/Time Apr 22, 2016 at 03:19 Initial Consult Date 04/22/16 Type of Consultation: neurology Subjective C/o headaches, 5/10 now, more severe last night; c/o very severe headaches in the last 1-2 weeks Objective Vital Signs Date Time Temp Pulse Resp B/P Pulse Ox O2 Delivery O2 Flow Rate FiO2 04/23/16 10:00 62 12 134/74 99 Room Air 04/23/16 04:00 99.0 Intake and Output 04/22/16 04/22/16 04/23/16 15:00 23:00 07:00 Intake Total 400 ml 525 ml 675 ml Output Total 550 ml 500 ml 700 ml Balance -150 ml 25 ml -25 ml Results/Medications Result Diagram: 04/23/16 0600 04/23/16 0810 Results 24 hrs Laboratory Tests Test 04/23/16 06:00 04/23/16 08:10 Basophils # 0.0 Basophils % 0.1 Eosinophils # 0.1 Eosinophils % 1.4 Hematocrit 31.4 L Hemoglobin 9.9 L Lymphocytes # 1.7 Lymphocytes % 23.6 Mean Corpuscular Hemoglobin 24.8 L Mean Corpuscular Hemoglobin Concent 31.5 L Mean Corpuscular Volume 78.7 L Mean Platelet Volume 10.8 #H Monocytes # 0.6 Monocytes % 8.8 Neutrophils # 4.6 Neutrophils % 65.8 Nucleated Red Blood Cells # 0.0 Nucleated Red Blood Cells % 0.0 Platelet Count 173 Red Blood Count 3.99 L Red Cell Distribution Width 18.1 H White Blood Count 7.0 # Alanine Aminotransferase (ALT/SGPT) 18 Albumin 3.4 Albumin/Globulin Ratio 1.03 Alkaline Phosphatase 72 Anion Gap 14 Aspartate Amino Transf (AST/SGOT) 14 L Blood Urea Nitrogen 11 Calcium Level 8.5 Carbon Dioxide Level 27 Chloride Level 106 Creatinine 1.03 Direct Bilirubin 0.00 Globulin 3.30 H Glucose Level 99 Indirect Bilirubin 0.2 Magnesium Level 1.8 Phosphorus Level 3.5 Potassium Level 3.6 Sodium Level 143 Total Bilirubin 0.2 Total Protein 6.7 Medications Current Medications Sodium Chloride (NS) 1,000 ml @ 75 mls/hr [id number] IV Last administered on 04/23t 05:54; Admin Dose 75 MLS/HR; Start 04/22/16 at 03:15 Ondansetron HCl (Zofran Inj) 4 mg Q6H PRN IV NAUSEA AND/OR VOMITING; Start at 03:30 Nitroglycerin (Nitroglycerin (Sl Tab) 0.4 Mg) 1 tab Q5M PRN SL CHEST PAIN; Start 04/22/16 at 03:30 Acetaminophen (Tylenol Supp) 650 mg Q4H PRN MT PAIN LEVEL 1-3 OR FEVER; Start 04/22/16 at 03:30 Morphine Sulfate (morphine) 2 mg Q4H PRN IV PAIN LEVEL 7-10 Last administered on 04/22/16 22:54; Admin Dose 2 MG; Start 04/22/16 at 03:30 Lorazepam (Ativan) 1 mg Q2H PRN IV ANXIETY; Start 04/22/16 at 03:30 Docusate Sodium (Colace) 100 mg Q12H PRN PO CONSTIPATION; Start 04/22/16 at 03: 30 Famotidine (Pepcid Iv) 20 mg Q12 IV Last administered on 04/23/16 08:50; Admin Dose 20 MG; Start 04/22/16 at 09:00 Labetalol HCl (Labetalol) 10 mg Q10M PRN IV ELEVATED BLOOD PRESSURE Last administered on 04/22/16 20:09; Admin Dose 10 MG; Start 04/22/16 at 03:30 Acetaminophen (Tylenol Tab) 650 mg Q4H PRN PO TEMP GREATER THAN 99.6F; Start at 03:30 Docusate Sodium (Colace) 100 mg BID PO Last administered on 04/23/16 08:51; Admin Dose 100 MG; Start 04/22/16 at 09:00 Hydromorphone HCl (Dilaudid) 1 mg Q6H PRN IV PAIN Last administered on 08:53; Admin Dose 1 MG; Start 04/22/16 at 03:30 Methadone HCl (Methadone) 45 mg DAILY ONCE PO ; Start 04/23/16 at 09:30; Stop 04/23/16 at 09:31; Status UNV Atenolol (Tenormin) 50 mg DAILY PO ; Start 04/23/16 at 10:00 Atorvastatin Calcium (Lipitor) 20 mg QHS PO ; Start 04/23/16 at 21:00 Docusate Calcium (Surfak) 240 mg BID PO ; Start 04/23/16 at 10:30 Furosemide (Lasix) 20 mg DAILY PO ; Start 04/23/16 at 10:00 Nifedipine (Procardia Xl) 60 mg DAILY PO ; Start 04/23/16 at 10:00 Assessment/Plan Chief Complaint/Hosp Course PHYSICAL EXAMINATION: GENERAL: Not in acute distress, lying in bed. HEENT: Normocephalic, atraumatic head. NECK: No carotid bruits. No thyromegaly. LUNGS: Clear to auscultation bilaterally. CARDIAC: Normal cardiac rhythm and sounds. ABDOMEN: Soft, nontender. EXTREMITIES: No cyanosis, clubbing or edema. NEUROLOGIC: He is awake , oriented x3 now. He has fluent speech. Cranial nerve examination shows intact visual forman to visual threat bilaterally. Pupils sluggish from about 2 mm bilaterally. Extraocular movements intact without nystagmus. Symmetrical face. Preserved facial strength and sensation. Corneal reflexes present bilaterally. Tongue is in midline. Motor strength seems to be preserved in all extremities. Normal bulk and tone. Sensory examination grossly intact to light touch and pain. Deep tendon reflexes 2+ upper extremities, absent in lower extremities. Downgoing toes bilaterally. Coordination seems to be preserved on [id number] testing. No dysmetria or tremor. Gait was not assessed. IMPRESSION: Chronic headeaches, worsening in the last 1-2 weeks. Chrionic venous sinus thrombosis, on anticoagulation x 3 years, does not know if have predisposition for bloot clots, no other clots in hx. Possible small blood along tentorium, predominantly dural thickening on MRI. Small venous infarct, could be not acute per stroke neurologist. Off anticoagulation now. Repeat CT pending. Headache treatment. Unclear etiology of thrombosis, if hypercoagulable state, than patient probably has to be put back on anticoagulation. Will send hypercoagulable blood work, also get records from [place] Problems: ONDINA GAGE MD Apr 23, 2016 10:44
[2016-04-23 10:52] LABS: IRON 32 ug/dl (35-150)
[2016-04-23] MEDS: FUROSEMIDE 20 MG TAB PO SCH (11:04)
--- NOTE | 2016-04-23 11:04 | PN ---
DATE: 04/23/2016 SUBJECTIVE DATA: Complains of headache. Denies any dizziness. OBJECTIVE DATA: VITAL SIGNS: Temperature 99.0, pulse rate 56, respiratory rate 14, blood pressure 132/61, oxygen saturation 100% on room air. GENERAL: This is an morbidly obese -Citizen Of [place] male lying in bed in no apparent distress. HEENT: Head normocephalic and atraumatic. Eyes: Anicteric sclerae. Conjunctivae clear. ENT: Nasal septum is midline. Oral mucosa is dry. NECK: Supple. No JVD noticed. RESPIRATORY: Bilaterally clear to auscultation. No adventitious breath sounds heard. No use of accessory muscles of respiration. CARDIAC: Regular rate and rhythm. No murmurs. ABDOMEN: Soft, nontender and nondistended. Bowel sounds were auscultated in all 4 quadrants. GENITOURINARY: Deferred. EXTREMITIES: No cyanosis, no clubbing, no edema. Peripheral pulses are palpable. NEUROLOGIC: The patient is awake, alert and oriented. Cranial nerves are grossly intact. LABORATORY AND DIAGNOSTIC DATA: WBC 7.0, hemoglobin 9.9, hematocrit 31.4, platelet count 177. Sodium 143, potassium 3.6, chloride 106, carbon dioxide 27 , anion gap 14, BUN 11, creatinine 1.73, glucose 99, calcium 8.5, phosphorus 3.7 , magnesium 1.8. ASSESSMENT AND PLAN: 1. Cephalgia. Initial brain CT scan showing symmetrical posterior parasagittal extra-axial blood surrounding the superior sagittal sinus continuing over the superior aspect of the tentorium bilaterally in the subdural space consistent with subdural hematomas. However, the brain MRI showing evidence of loss of normal flow related enhancement involving the posterior inferior aspect of the superior sagittal sinus extending to the torcular Herophili with loss of the normal flow related enhancement of both the transverse sinuses. The brain MRI revealed evidence of dural sinus thrombosis involving the posterior inferior superior sagittal sinus as well as transverse sinuses bilaterally. MRI also revealed a small, less than 1 cm right posterior frontal parasagittal venous infarct. Brain MRI did not show any evidence of any subdural hematoma. The patient's anticoagulation has been on hold. The patient was seen and evaluated by neurosurgery and neurology. We will involve Hematology on the case. As per neurology notes, the patient needs to be anticoagulated only if the patient has a hypercoagulable state. The patient's hypercoagulable workup is pending at this time. As of now, we will hold the patient's anticoagulation. 2. Essential hypertension. Continue antihypertensives. 3. Diastolic dysfunction. Compensated. Continue beta blockers and protein loop diuretics. 4. Chronic back pain. Continue methadone. 5. Acute kidney injury. Etiology unclear, most probably related to hemodynamics versus other causes. The patient's renal function has been normalized. We will monitor the BUN and creatinine closely. 6. Microcytic, hypochromic anemia. Etiology unclear. Will order an iron panel on this patient. We will obtain a stool for OB on this patient. 7. Fluid, electrolytes and nutrition. Continue low sodium diet. 8. Deep venous thrombosis prophylaxis with bilateral sequential compression devices. 9. Gastrointestinal prophylaxis. Histamine 2 receptor blockers. PLAN: Continue current management. Hold anticoagulation at this time. Await repeat brain CT scan. The case was discussed with Dr. Cedeno. 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 CRITICAL CARE TIME: 35 minutes. FEDERICO CEDENO MD, AM/MARISA Conf#: [id number] DID#: [id number] MTDD
[2016-04-23] MEDS: NIFEdipine (XL) 60 MG TAB PO SCH (11:05)
[2016-04-23] MEDS: ATENOLOL 50 MG TAB PO SCH (11:05)
[2016-04-23 11:06] LABS: TOTAL IRON BINDING CAPACITY 239 ug/dl (241-421)
[2016-04-23] MEDS: METHADONE (1 MG/ML 5 ML PO UD SYG) PO SCH (13:17)
[2016-04-23] MEDS: DOCUSATE CALCIUM 240 MG CAP PO SCH ×2 (13:19→20:15)
--- NOTE | 2016-04-23 14:17 | RADRPT ---
PROCEDURE: CT Brain without contrast. CLINICAL INDICATION: Neurologic deficit TECHNIQUE: A CT of the brain was performed on multidetector high-resolution CT scanner utilizing a xial sections from the skull base through the vertex without contrast. One or more of the following dose reduction techniques were used: Automated exposure control, Adjustment of the mA and/or kV acc ording to patient size, and/or use of iterative reconstruction technique. DOSE: CTDI = 39 mGy and the DLP = 634 mGy-cm. COMPARISON: MRI brain and MRV brain 04/22/2016, head CT 04/22/2016 FINDINGS: Hyperdensity of the dura adjacent to the superior sagittal sinus and bilateral tentorium adjacent to the transverse sinsues is unchanged in appearance from 04/22/2016. The small recent infarct in the right cingulate gyrus was more clearly seen on MRI. No evidence of new bleeding, significant mass effect or midline shift. Atherosclerotic calcification s of the cavernous segments of the internal carotid arteries are seen. The ventricles are stable size. No significant opacification of the visualized paranasal sinuses or mastoids. Empty appearance of t he sella turcica. IMPRESSION: Hyperdensity of the dura adjacent to the superior sagittal sinus and bilateral tentorium adjacent to the transverse sinuses is unchanged in appearance from 04/22/2016. This corresponds to the superior sagittal and bilateral transverse dural sinus thrombosis as detailed on prior MRI. The small recent infarct in the right cingulate gyrus was more clearly seen on MRI. No evidence of new bleeding, significant mass effect, or midline shift RPTAT: AA .Davion Myers MD, Date Time Electronically viewed and signed by .Davion Myers MD, MD on 04/23/2016 14:17 .T/
[2016-04-23] MEDS: FERROUS SULFATE (EC) 325 MG TAB PO SCH (20:15)
[2016-04-23] MEDS: ATORVASTATIN 20 MG TAB PO SCH (20:15)
--- NOTE | 2016-04-23 23:12 | CONS ---
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 CAT scan in the ER showed possible tentorial subdural hematomas and anticoagulation was stopped. His MRI also shows some tiny acute venous infarct on the right parasagittal area. MRI of the brain does not confirm presence of subdural hematoma, states that tentorium has a dural thickening and though a small amount of blood product cannot be excluded, but predominantly is dural thickening. Repeat CAT scan of the head- did not show bleeding The patient will be followed by neurosurgeon, Dr. Corey, as well. i think that pt can be restarted back on anticoagulation if all agree Unclear etiology of thrombosis, but pt clearly has hypercoagulable state with chronic sinus thrombosis hypercoagulable blood work has been ordered records from [facility] Thank you very much for this interesting consultation. Problems: Consultation Date/Type/Reason Admit Date/Time Apr 22, 2016 at 03:19 Date of Consultation: Apr 23, 2016 Type of Consultation: [facility] Referring Provider: FEDERICO WIGGINS NP Hx of Present Illness Thank you, ROSAURA, for your kind referral for evaluation of venous thrombosis and possible subdural hematomas. HISTORY OF PRESENT ILLNESS: The patient, according to the chart, presented with severe occipital headache. CAT scan of the head shows tentorial subdural hematomas which could be secondary to thrombosis in the superior sagittal sinus. Neurosurgeon saw the patient and recommended to obtain MRI and MRV of the brain and put a hold on patient's Eliquis. The patient has a history of sinus thrombosis 3 years ago and he is on anticoagulation. Anticoagulation was reversed in the hospital with prothrombin complex concentrate. Today on my questioning, the patient does not seem to be a reliable historian. He states that he has had headaches for a long time, once he said it has been 2 weeks, another time he answered me it was a year of intermittent headaches, usually every several days occipital or bifrontal for a few hours. 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 A small component of blood products cannot be entirely excluded. There is a very small, less than 1 cm, right posterior frontal parasagittal venous infarct and scattered white matter disease. MRV of the brain shows loss of normal flow related enhancement involving posterior inferior aspect of superior sagittal sinus with loss of flow in both transverse sinuses and in the right sinus. The veins are normal or small in caliber, as described in the body of the report. F-UP IMAGING STUDIES DID NOT REVEALED HEMATOMA- Hyperdensity of the dura adjacent to the superior sagittal sinus and bilateral tentorium adjacent to the transverse sinuses is unchanged in appearance from 04/22/2016. This corresponds to the superior sagittal and bilateral transverse dural sinus thrombosis as detailed on prior MRI. The small recent infarct in the right cingulate gyrus was more clearly seen on MRI. No evidence of new bleeding, significant mass effect, or midline shift I WAS ASKED TO PROVIDE [facility] CONSULT CURRENT MEDICATIONS: 1. Famotidine. 2. Colace. 3. Zofran. 4. Nitroglycerin p.r.n. 5. Labetalol p.r.n. OTHER MEDICAL PROBLEMS: Include congestive heart failure, renal insufficiency, hypertension. HOME MEDICATIONS: 1. Eliquis 2.5 b.i.d. 2. Atenolol. 3. Atorvastatin . 4. NIFEDIPINE. 5. Methadone 45 mg daily. 6. Furosemide. 7. Docusate. ALLERGIES: NONE. SOCIAL HISTORY: Cigarette smoker of less than a pack per day and no alcohol or drug use. FAMILY HISTORY: Noncontributory. LABORATORY DATA: Hemoglobin 10.4, hematocrit 32.7, low indices, normal hemoglobin and platelets. Chemistry: BUN 14, creatinine 1.3. Rest of basic metabolic panel within normal limits. PT 15, PTT 37.8 on admission. Past Medical History Medical History: congestive heart failure, hypertension Past Surgical History Past Surgical Hx: cholecystectomy Social History Alcohol Use: none Smoking Status: Former smoker Drug Use: none (4 cig/day x 50 years) Exam/Review of Systems Vital Signs Vitals Vital Signs Date Time Temp Pulse Resp B/P Pulse Ox O2 Delivery O2 Flow Rate FiO2 04/23/16 21:03 97.6 58 16 144/72 98 04/23/16 20:30 Room Air Intake and Output 04/22/16 04/22/16 04/23/16 15:00 23:00 07:00 Intake Total 400 ml 525 ml 675 ml Output Total 550 ml 500 ml 700 ml Balance -150 ml 25 ml -25 ml Exam PHYSICAL EXAMINATION: GENERAL: Not in acute distress, lying in bed. HEENT: Normocephalic, atraumatic head. NECK: No carotid bruits. No thyromegaly. LUNGS: Clear to auscultation bilaterally. CARDIAC: Normal cardiac rhythm and sounds. ABDOMEN: Soft, nontender. EXTREMITIES: No cyanosis, clubbing or edema. NEUROLOGIC: He is A,A,NAD, ABLE TO FOLLOW COMMANDS Results Result Diagram: 04/23/16 0600 04/23/16 0810 Results 24 hrs Laboratory Tests Test 04/23/16 06:00 04/23/16 08:10 04/23/16 10:10 04/23/16 12:00 Basophils # 0.0 Basophils % 0.1 Eosinophils # 0.1 Eosinophils % 1.4 Hematocrit 31.4 L Hemoglobin 9.9 L Lymphocytes # 1.7 Lymphocytes % 23.6 Mean Corpuscular Hemoglobin 24.8 L Mean Corpuscular Hemoglobin Concent 31.5 L Mean Corpuscular Volume 78.7 L Mean Platelet Volume 10.8 #H Monocytes # 0.6 Monocytes % 8.8 Neutrophils # 4.6 Neutrophils % 65.8 Nucleated Red Blood Cells # 0.0 Nucleated Red Blood Cells % 0.0 Platelet Count 173 Red Blood Count 3.99 L Red Cell Distribution Width 18.1 H White Blood Count 7.0 # Alanine Aminotransferase (ALT/SGPT) 18 Albumin 3.4 Albumin/Globulin Ratio 1.03 Alkaline Phosphatase 72 Anion Gap 14 Aspartate Amino Transf (AST/SGOT) 14 L Blood Urea Nitrogen 11 Calcium Level 8.5 Carbon Dioxide Level 27 Chloride Level 106 Creatinine 1.03 Direct Bilirubin 0.00 Erythrocyte Sedimentation Rate 54 H Globulin 3.30 H Glucose Level 99 Indirect Bilirubin 0.2 Magnesium Level 1.8 Phosphorus Level 3.5 Potassium Level 3.6 Sodium Level 143 Total Bilirubin 0.2 Total Protein 6.7 Ferritin 28.6 Iron Level 32 L Percent Iron Saturation 13 L Total Iron Binding Capacity 239 L Stool Occult Blood NEGATIVE Medications Medications Current Medications Sodium Chloride (NS) 1,000 ml @ 75 mls/hr [id number] IV Last administered on 04/23t 05:54; Admin Dose 75 MLS/HR; Start 04/22/16 at 03:15 Ondansetron HCl (Zofran Inj) 4 mg Q6H PRN IV NAUSEA AND/OR VOMITING; Start at 03:30 Nitroglycerin (Nitroglycerin (Sl Tab) 0.4 Mg) 1 tab Q5M PRN SL CHEST PAIN; Start 04/22/16 at 03:30 Acetaminophen (Tylenol Supp) 650 mg Q4H PRN RI PAIN LEVEL 1-3 OR FEVER; Start 04/22/16 at 03:30 Morphine Sulfate (morphine) 2 mg Q4H PRN IV PAIN LEVEL 7-10 Last administered on 04/22/16 22:54; Admin Dose 2 MG; Start 04/22/16 at 03:30 Lorazepam (Ativan) 1 mg Q2H PRN IV ANXIETY; Start 04/22/16 at 03:30 Docusate Sodium (Colace) 100 mg Q12H PRN PO CONSTIPATION; Start 04/22/16 at 03: 30 Famotidine (Pepcid Iv) 20 mg Q12 IV Last administered on 04/23/16 20:16; Admin Dose 20 MG; Start 04/22/16 at 09:00 Labetalol HCl (Labetalol) 10 mg Q10M PRN IV ELEVATED BLOOD PRESSURE Last administered on 04/22/16 20:09; Admin Dose 10 MG; Start 04/22/16 at 03:30 Acetaminophen (Tylenol Tab) 650 mg Q4H PRN PO TEMP GREATER THAN 99.6F; Start at 03:30 Hydromorphone HCl (Dilaudid) 1 mg Q6H PRN IV PAIN Last administered on 20:16; Admin Dose 1 MG; Start 04/22/16 at 03:30 Methadone HCl (Methadone Liq) 45 mg DAILY PO Last administered on 04/23/16 13: 17; Admin Dose 45 MG; Start 04/23/16 at 13:00 Atenolol (Tenormin) 50 mg DAILY PO Last administered on 04/23/16 11:05; Admin Dose 50 MG; Start 04/23/16 at 10:00 Atorvastatin Calcium (Lipitor) 20 mg QHS PO Last administered on 04/23/16 20: 15; Admin Dose 20 MG; Start 04/23/16 at 21:00 Docusate Calcium (Surfak) 240 mg BID PO Last administered on 04/23/16 20:15; Admin Dose 240 MG; Start 04/23/16 at 10:30 Furosemide (Lasix) 20 mg DAILY PO Last administered on 04/23/16 11:04; Admin Dose 20 MG; Start 04/23/16 at 10:00 Nifedipine (Procardia Xl) 60 mg DAILY PO Last administered on 04/23/16 11:05; Admin Dose 60 MG; Start 04/23/16 at 10:00 Ferrous Sulfate (Ferrous Sulfate (Ec)) 325 mg BID PO Last administered on 20:15; Admin Dose 325 MG; Start 04/23/16 at 21:00 Procedures Procedures [place] [address] Radiology Main Line: [phone] DIAGNOSTIC IMAGING REPORT Patient: GARCIA WANG : 1950 Age: 65 Sex: M MR #: [id number] DOS: 04/22/16 0112 Ordering MD: GARCIA ORDONEZ MD Location: E/R Room/Bed: PROCEDURE: CT BRAIN WITHOUT CONTRAST CLINICAL INDICATION: 65-year-old male with headaches. TECHNIQUE: The study was performed utilizing [employer] VCT 64-slice CT scanner. Direct axial sections were obtained from the foramen magnum to the vertex without the use of intravenous contrast material. Sagittal and coronal reformations were obtained. Automated exposure control and iterative reconstruction techniques were utilized for this examination. The images were viewed on a PACS workstation. CTD/vol = 49.9 mGy; Total Exam DLP = 817 point a mGy-cm. COMPARISON: None. FINDINGS: There is symmetrical posterior parasagittal increased density adjacent to the superior sagittal sinus continuing over the superior aspect of the tentorium. With the maximal thickness on the right side of 5 mm and on the left side of 7 mm. This is most suggestive of extra-axial blood. This may be secondary to superior sagittal sinus thrombosis. There is mild prominence of the sulci and cisternal spaces consistent with volume loss There is no evidence for midline shift. There are periventricular areas of decreased density consistent with microangiopathic ischemic changes. Calcifications are seen within the intracranial carotid arteries bilaterally. The bony calvarium is intact. The partially visualized paranasal sinuses and mastoid air cells are without significant abnormal soft tissue. IMPRESSION: 1. Mild diffuse volume loss. 2. Microangiopathic ischemic changes. 3. Symmetrical posterior parasagittal extra-axial blood surrounding the superior sagittal sinus continuing over the superior aspect of the tentorium bilaterally in the subdural space consistent with subdural hematomas. This may be secondary to thrombosis of the superior sagittal sinus. Further evaluation with an MRI of the brain and MR venogram is suggested. 4. Vascular calcifications. CRITICAL RESULTS: A call report was made to [facility] ER Dr. Ordonez on March at 02:45 a.m. .Cecilio Hanna MD, MD Date Time Electronically viewed and signed by .Cecilio Hanna MD, on 04/22/2016 02:53 .M/ CC: GARCIA ORDONEZ MD [place] [address] Radiology Main Line: [phone] DIAGNOSTIC IMAGING REPORT Patient: GARCIA WANG : 1950 Age: 65 Sex: M MR #: [id number] DOS: 04/22/16 0315 Ordering MD: ORIANA DANIELS MD Location: ICU Room/Bed: [facility] PROCEDURE: MR Brain with and without contrast. CLINICAL INDICATION: Headaches, abnormal CT brain showing possible subdural hematoma and sagittal sinus thrombosis. TECHNIQUE: An MRI of the brain was performed on a GE short bore 3 natalya scanner utilizing the following sequences: Sagittal T1 weighted, axial T2 weighted, axial diffusion weighted (EPI technique [id number]), axial ADC mapping, axial FLAIR, coronal GRE, and post contrast coronal and axial T1 weighted. 10 cc of Magnevist was given intravenously without complication. COMPARISON: CT brain 04/22/2016. This is also correlated with concurrently performed MR venogram. FINDINGS: As suspected from CT, there is an abnormal flow void within the posterior superior sagittal sinus as well as transverse sinuses. The postcontrast images show relative poor enhancement of this portion of the dural sinuses. The dural sinuses in these locations do not appear enlarged and, in fact, the transverse sinuses are somewhat small in size. 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 The mid and anterior aspect of the superior sagittal sinus is patent. The cortical veins are grossly patent as well. There is evidence of significant dural thickening along the superior sagittal sinus and posterior falx extending along the tentorium. These findings likely reflect dural thickening measuring up to 2 mm. A small component of blood products cannot be entirely excluded. There is no significant mass effect or midline shift. There is evidence of subtle focal diffusion weighted hyperintensity in the right parasagittal frontal subcortical white matter with mixed ADC signal intensity and corresponding T2-weighted / FLAIR hyperintensity. The findings likely reflect a small venous infarct. No other diffusion weighted abnormality is are seen to suggest additional areas of ischemic change. There is no cisternal effacement. The ventricles and sulci are normal in size and configuration for age. A few small foci of increased T2 weighted/FLAIR signal intensity are seen in the deep and subcortical white matter, nonspecific in appearance. The signal intensity is normal within the brain stem and cerebellum. Normal flow voids are visible in the proximal intracranial arteries , indicating patency. The postcontrast images show no other areas of abnormal enhancement. IMPRESSION: 1. There is evidence of dural sinus thrombosis involving the posterior and inferior superior sagittal sinus as well as the transverse sinuses bilaterally. There is dural thickening and enhancement surrounding the sagittal sinus and transverse sinuses. There may be a small component of blood products in these locations, though there appears to be primarily dural thickening. There is no significant mass effect or midline shift. 2. There is a very small, less than 1 cm, right posterior frontal parasagittal venous infarct. 3. Several small foci of increased T2 weighted/FLAIR signal intensity are seen primarily in the deep and subcortical white matter, nonspecific in appearance though perhaps reflective of complicated migraines, hypertensive microvascular ischemic disease, sequela from prior traumatic or inflammatory insults. Comment: A call report was made to the patient's RN, Hailey, in the ICU at 6 p.m. on 04/22/[address] Torres. RPTAT: PP .Lottie Torres MD, MD Date Time Electronically viewed and signed by .Lottie Torres MD, MD on 04/22/2016 18:10 .H/ CC: ORIANA DANIELS MD [place] [address] Radiology Main Line: [phone] DIAGNOSTIC IMAGING REPORT Patient: GARCIA WANG : 1950 Age: 65 Sex: M MR #: [id number] DOS: 04/22/16 1027 Ordering MD: ORIANA DANIELS MD Location: [facility] PROCEDURE: MR venogram Brain. CLINICAL INDICATION: Headaches, abnormal CT brain showing possible subdural hematoma and sagittal sinus thrombosis. TECHNIQUE: An MR venogram of the brain was performed on a [employer] short bore high- definition 3 natalya scanner 2-D [id number] MR angiography technique. Source and MIP images were reviewed. COMPARISON: CT brain 04/22/2016. Also correlated with concurrently performed MRI brain 04/22/2016. FINDINGS: There is loss of the normal flow related enhancement involving the posterior aspect of the superior sagittal sinus extending from the parietal region near the vertex all the way to the torcula herophili. There is lack of flow related enhancement within both transverse sinuses. The sigmoid sinuses and jugular bulbs are patent but somewhat diminutive. The mid and anterior aspect of the superior sagittal sinus is patent with normal flow related enhancement. There is loss of the normal flow related enhancement in the straight sinus. The cortical veins demonstrate normal flow related enhancement and appear grossly normal in size. IMPRESSION: 1. There is evidence of loss of the normal flow related enhancement involving the posterior and inferior aspect of the superior sagittal sinus extending to the torcula herophili with loss of the normal flow related enhancement of both transverse sinuses. There is also loss of the normal flow related enhancement in the straight sinus. The remaining veins are normal or small in caliber as described above. 2. These findings together with the MRI brain findings are suggestive of somewhat chronic thrombus in superior sagittal sinus, straight sinus, and both transverse sinuses. Comment: A call report was made to the patient's RN, Hailey, at 06:00 p.m. on 04/22/[address] Torres. .Lottie Torres MD, Date Time Electronically viewed and signed by .Lottie Torres MD, MD on 04/22/2016 18:17 .H/ CC: ORIANA DANIELS MD [place] [address] Radiology Main Line: [phone] DIAGNOSTIC IMAGING REPORT Patient: GARCIA WANG : 1950 Age: 65 Sex: M MR #: [id number] DOS: 04/23/16 0900 Ordering MD: KADE COREY MD Location: ICU Room/Bed: [facility] PROCEDURE: CT Brain without contrast. CLINICAL INDICATION: Neurologic deficit TECHNIQUE: A CT of the brain was performed on multidetector high-resolution CT scanner utilizing axial sections from the skull base through the vertex without contrast. One or more of the following dose reduction techniques were used: Automated exposure control, Adjustment of the mA and/or kV according to patient size, and/or use of iterative reconstruction technique. DOSE: CTDI = 39 mGy and the DLP = 634 mGy-cm. COMPARISON: MRI brain and MRV brain 04/22/2016, head CT 04/22/2016 FINDINGS: Hyperdensity of the dura adjacent to the superior sagittal sinus and bilateral tentorium adjacent to the transverse sinsues is unchanged in appearance from . The small recent infarct in the right cingulate gyrus was more clearly seen on MRI. No evidence of new bleeding, significant mass effect or midline shift. Atherosclerotic calcifications of the cavernous segments of the internal carotid arteries are seen. The ventricles are stable size. No significant opacification of the visualized paranasal sinuses or mastoids. Empty appearance of the sella turcica. IMPRESSION: Hyperdensity of the dura adjacent to the superior sagittal sinus and bilateral tentorium adjacent to the transverse sinuses is unchanged in appearance from . This corresponds to the superior sagittal and bilateral transverse dural sinus thrombosis as detailed on prior MRI. The small recent infarct in the right cingulate gyrus was more clearly seen on MRI. No evidence of new bleeding, significant mass effect, or midline shift RPTAT: AA .Davion Myers MD, MD Date Time Electronically viewed and signed by .Davion Myers MD, on 04/23/2016 14:17 .T/ CC: KADE COREY MD, VERA M MD Apr 23, 2016 23:10
[2016-04-24] MEDS: HYDROmorphONE 1 MG/ML SYG IV PRN (05:50)
[2016-04-24 07:42] VITALS: BP 162/72; RESP 16
[2016-04-24] MEDS: SOD CHLORIDE 0.9% 1,000 ML IV SCH (08:35)
[2016-04-24] MEDS: DOCUSATE CALCIUM 240 MG CAP PO SCH ×2 (09:00→21:45)
[2016-04-24] MEDS: FUROSEMIDE 20 MG TAB PO SCH (09:18)
[2016-04-24] MEDS: NIFEdipine (XL) 60 MG TAB PO SCH (09:19)
[2016-04-24] MEDS: FERROUS SULFATE (EC) 325 MG TAB PO SCH ×2 (09:19→20:46)
[2016-04-24] MEDS: FAMOTIDINE 20 MG INJ IV SCH (09:20)
[2016-04-24] MEDS: METHADONE (1 MG/ML 5 ML PO UD SYG) PO SCH (09:23)
[2016-04-24 09:26] VITALS: BP 142/72; PULSE 59
[2016-04-24 10:24] LABS: ADD SCAN DIFF NO
[2016-04-24 10:30] LABS: BASOPHILS % 0.3 % (0.0-2.0); EOSINOPHILS # 0.1 10^3/ul (0.0-0.5); EOSINOPHILS % 1.6 % (0.0-7.0); HEMATOCRIT 35.8 % (42.0-52.0); HEMOGLOBIN 11.1 g/dl (14.0-18.0); LYMPHOCYTES # 1.6 10^3/ul (0.8-2.9); LYMPHOCYTES % 23.5 % (15.0-51.0); MEAN CORPUSCULAR HEMOGLOBIN 25.1 pg (29.0-33.0); MEAN CORPUSCULAR VOLUME 80.8 fl (82.0-101.0); MEAN PLATELET VOLUME 9.6 fl (7.4-10.4); MONOCYTE # 0.5 10^3/ul (0.3-0.9); MONOCYTES % 8.1 % (0.0-11.0); NEUTROPHIL # 4.4 10^3/ul (1.6-7.5); NEUTROPHILS % 66.2 % (39.0-77.0); PLATELET COUNT 260 10^3/UL (140-415); RED BLOOD COUNT 4.43 10^6/ul (4.70-6.10); RED CELL DISTRIBUTION WIDTH 18.2 % (11.5-14.5); WHITE BLOOD COUNT 6.7 10^3/ul (4.8-10.8)
[2016-04-24 10:39] LABS: ALBUMIN 3.5 g/dl (3.3-4.9); MAGNESIUM 1.9 mg/dl (1.7-2.5); PHOSPHORUS 2.8 mg/dl (2.5-4.9); POTASSIUM 3.5 mmol/L (3.5-5.1)
[2016-04-24 10:41] LABS: BILIRUBIN,INDIRECT 0.4 mg/dl (0-1.1); BILIRUBIN,TOTAL 0.4 mg/dl (0.2-1.3); CREATININE 1.04 mg/dl (0.61-1.24)
[2016-04-24 10:42] LABS: ALBUMIN/GLOBULIN RATIO 1.16; CALCIUM 9.2 mg/dl (8.4-10.2); TOTAL PROTEIN 6.5 g/dl (6.1-8.1)
[2016-04-24 11:10] VITALS: BP 119/62; PULSE 66
[2016-04-24] MEDS: ATENOLOL 50 MG TAB PO SCH (11:10)
--- NOTE | 2016-04-24 12:11 | CONS ---
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 CAT scan in the ER showed possible tentorial subdural hematomas and anticoagulation was stopped. His MRI also shows some tiny acute venous infarct on the right parasagittal area. MRI of the brain does not confirm presence of subdural hematoma, states that tentorium has a dural thickening and though a small amount of blood product cannot be excluded, but predominantly is dural thickening. Repeat CAT scan of the head- did not show bleeding The patient will be followed by neurosurgeon, Dr. Corey, as well. i think that pt can be restarted back on anticoagulation if all agree Unclear etiology of thrombosis, but pt clearly has hypercoagulable state with chronic sinus thrombosis hypercoagulable blood work has been ordered records from [facility] Problems: Consultation Date/Type/Reason Admit Date/Time Apr 22, 2016 at 03:19 Initial Consult Date 04/23/16 Type of Consultation: [facility] Referring Provider: FEDERICO WIGGINS NP 24 HR Interval Summary Free Text/Dictation ALL NOTED TRANSFERRED TO [facility] STABLE NO BLEEDING NO RUSSELL Exam/Review of Systems Vital Signs Vitals Vital Signs Date Time Temp Pulse Resp B/P Pulse Ox O2 Delivery O2 Flow Rate FiO2 04/24/16 11:10 66 119/62 04/24/16 07:42 98.0 16 100 04/23/16 20:30 Room Air Intake and Output 04/23/16 04/23/16 04/24/16 15:00 23:00 07:00 Intake Total 200 ml 460 ml 1425 ml Output Total 700 ml 650 ml 800 ml Balance -500 ml -190 ml 625 ml Exam PHYSICAL EXAMINATION: GENERAL: Not in acute distress, lying in bed. HEENT: Normocephalic, atraumatic head. NECK: No carotid bruits. No thyromegaly. LUNGS: Clear to auscultation bilaterally. CARDIAC: Normal cardiac rhythm and sounds. ABDOMEN: Soft, nontender. EXTREMITIES: No cyanosis, clubbing or edema. NEUROLOGIC: He is A,A,NAD, ABLE TO FOLLOW COMMANDS Results Result Diagram: 04/24/16 1010 04/24/16 1010 Results 24 hrs Laboratory Tests Test 04/24/16 10:10 Alanine Aminotransferase (ALT/SGPT) 19 Albumin 3.5 Albumin/Globulin Ratio 1.16 Alkaline Phosphatase 70 Anion Gap 17 H Aspartate Amino Transf (AST/SGOT) 18 Basophils # 0.0 Basophils % 0.3 Blood Urea Nitrogen 10 Calcium Level 9.2 Carbon Dioxide Level 24 Chloride Level 106 Creatinine 1.04 Direct Bilirubin 0.00 Eosinophils # 0.1 Eosinophils % 1.6 Globulin 3.00 Glucose Level 119 Hematocrit 35.8 L Hemoglobin 11.1 L Indirect Bilirubin 0.4 Lymphocytes # 1.6 Lymphocytes % 23.5 Magnesium Level 1.9 Mean Corpuscular Hemoglobin 25.1 L Mean Corpuscular Hemoglobin Concent 31.0 L Mean Corpuscular Volume 80.8 L Mean Platelet Volume 9.6 Monocytes # 0.5 Monocytes % 8.1 Neutrophils # 4.4 Neutrophils % 66.2 Nucleated Red Blood Cells # 0.0 Nucleated Red Blood Cells % 0.0 Phosphorus Level 2.8 Platelet Count 260 # Potassium Level 3.5 Red Blood Count 4.43 L Red Cell Distribution Width 18.2 H Sodium Level 143 Total Bilirubin 0.4 Total Protein 6.5 White Blood Count 6.7 Medications Medications Current Medications Sodium Chloride (NS) 1,000 ml @ 75 mls/hr [id number] IV Last administered on 04/23 23:46; Admin Dose 75 MLS/HR; Start 04/22/16 at 03:15 Ondansetron HCl (Zofran Inj) 4 mg Q6H PRN IV NAUSEA AND/OR VOMITING; Start at 03:30 Nitroglycerin (Nitroglycerin (Sl Tab) 0.4 Mg) 1 tab Q5M PRN SL CHEST PAIN; Start 04/22/16 at 03:30 Acetaminophen (Tylenol Supp) 650 mg Q4H PRN [place] PAIN LEVEL 1-3 OR FEVER; Start 04/22/16 at 03:30 Morphine Sulfate (morphine) 2 mg Q4H PRN IV PAIN LEVEL 7-10 Last administered on 04/22/16 22:54; Admin Dose 2 MG; Start 04/22/16 at 03:30 Lorazepam (Ativan) 1 mg Q2H PRN IV ANXIETY; Start 04/22/16 at 03:30 Docusate Sodium (Colace) 100 mg Q12H PRN PO CONSTIPATION; Start 04/22/16 at 03: 30 Famotidine (Pepcid Iv) 20 mg Q12 IV Last administered on 04/24/16 09:20; Admin Dose 20 MG; Start 04/22/16 at 09:00 Labetalol HCl (Labetalol) 10 mg Q10M PRN IV ELEVATED BLOOD PRESSURE Last administered on 04/22/16 20:09; Admin Dose 10 MG; Start 04/22/16 at 03:30 Acetaminophen (Tylenol Tab) 650 mg Q4H PRN PO TEMP GREATER THAN 99.6F; Start at 03:30 Hydromorphone HCl (Dilaudid) 1 mg Q6H PRN IV PAIN Last administered on 05:50; Admin Dose 1 MG; Start 04/22/16 at 03:30 Methadone HCl (Methadone Liq) 45 mg DAILY PO Last administered on 04/24/16 09: 23; Admin Dose 45 MG; Start 04/23/16 at 13:00 Atenolol (Tenormin) 50 mg DAILY PO Last administered on 04/24/16 11:10; Admin Dose 50 MG; Start 04/23/16 at 10:00 Atorvastatin Calcium (Lipitor) 20 mg QHS PO Last administered on 04/23/16 20: 15; Admin Dose 20 MG; Start 04/23/16 at 21:00 Docusate Calcium (Surfak) 240 mg BID PO Last administered on 04/23/16 20:15; Admin Dose 240 MG; Start 04/23/16 at 10:30 Furosemide (Lasix) 20 mg DAILY PO Last administered on 04/24/16 09:18; Admin Dose 20 MG; Start 04/23/16 at 10:00 Nifedipine (Procardia Xl) 60 mg DAILY PO Last administered on 04/24/16 09:19; Admin Dose 60 MG; Start 04/23/16 at 10:00 Ferrous Sulfate (Ferrous Sulfate (Ec)) 325 mg BID PO Last administered on 09:19; Admin Dose 325 MG; Start 04/23/16 at 21:00 PADMINI SCOTT MD Apr 24, 2016 12:11
--- NOTE | 2016-04-24 13:00 | CONS ---
Date/Time of Note Date/Time of Note DATE: 04/24/16 TIME: 12:52 Consult Date/Type/Reason Admit Date/Time Apr 22, 2016 at 03:19 Initial Consult Date 04/22/16 Type of Consultation: neurology Ordering Provider: FEDERICO WIGGINS NP Subjective Headaches on off now 510 Objective Vital Signs Date Time Temp Pulse Resp B/P Pulse Ox O2 Delivery O2 Flow Rate FiO2 04/24/16 11:10 66 119/62 04/24/16 07:42 98.0 16 100 04/23/16 20:30 Room Air Intake and Output 04/23/16 04/23/16 04/24/16 15:00 23:00 07:00 Intake Total 200 ml 460 ml 1425 ml Output Total 700 ml 650 ml 800 ml Balance -500 ml -190 ml 625 ml Results/Medications Result Diagram: 04/24/16 1010 04/24/16 1010 Results 24 hrs Laboratory Tests Test 04/24/16 10:10 Alanine Aminotransferase (ALT/SGPT) 19 Albumin 3.5 Albumin/Globulin Ratio 1.16 Alkaline Phosphatase 70 Anion Gap 17 H Aspartate Amino Transf (AST/SGOT) 18 Basophils # 0.0 Basophils % 0.3 Blood Urea Nitrogen 10 Calcium Level 9.2 Carbon Dioxide Level 24 Chloride Level 106 Creatinine 1.04 Direct Bilirubin 0.00 Eosinophils # 0.1 Eosinophils % 1.6 Globulin 3.00 Glucose Level 119 Hematocrit 35.8 L Hemoglobin 11.1 L Indirect Bilirubin 0.4 Lymphocytes # 1.6 Lymphocytes % 23.5 Magnesium Level 1.9 Mean Corpuscular Hemoglobin 25.1 L Mean Corpuscular Hemoglobin Concent 31.0 L Mean Corpuscular Volume 80.8 L Mean Platelet Volume 9.6 Monocytes # 0.5 Monocytes % 8.1 Neutrophils # 4.4 Neutrophils % 66.2 Nucleated Red Blood Cells # 0.0 Nucleated Red Blood Cells % 0.0 Phosphorus Level 2.8 Platelet Count 260 # Potassium Level 3.5 Red Blood Count 4.43 L Red Cell Distribution Width 18.2 H Sodium Level 143 Total Bilirubin 0.4 Total Protein 6.5 White Blood Count 6.7 Medications Current Medications Sodium Chloride (NS) 1,000 ml @ 75 mls/hr [id number] IV Last administered on 04/23t 23:46; Admin Dose 75 MLS/HR; Start 04/22/16 at 03:15 Ondansetron HCl (Zofran Inj) 4 mg Q6H PRN IV NAUSEA AND/OR VOMITING; Start at 03:30 Nitroglycerin (Nitroglycerin (Sl Tab) 0.4 Mg) 1 tab Q5M PRN SL CHEST PAIN; Start 04/22/16 at 03:30 Acetaminophen (Tylenol Supp) 650 mg Q4H PRN [place] PAIN LEVEL 1-3 OR FEVER; Start 04/22/16 at 03:30 Morphine Sulfate (morphine) 2 mg Q4H PRN IV PAIN LEVEL 7-10 Last administered on 04/22/16 22:54; Admin Dose 2 MG; Start 04/22/16 at 03:30 Lorazepam (Ativan) 1 mg Q2H PRN IV ANXIETY; Start 04/22/16 at 03:30 Docusate Sodium (Colace) 100 mg Q12H PRN PO CONSTIPATION; Start 04/22/16 at 03: 30 Famotidine (Pepcid Iv) 20 mg Q12 IV Last administered on 04/24/16 09:20; Admin Dose 20 MG; Start 04/22/16 at 09:00 Labetalol HCl (Labetalol) 10 mg Q10M PRN IV ELEVATED BLOOD PRESSURE Last administered on 04/22/16 20:09; Admin Dose 10 MG; Start 04/22/16 at 03:30 Acetaminophen (Tylenol Tab) 650 mg Q4H PRN PO TEMP GREATER THAN 99.6F; Start at 03:30 Hydromorphone HCl (Dilaudid) 1 mg Q6H PRN IV PAIN Last administered on 05:50; Admin Dose 1 MG; Start 04/22/16 at 03:30 Methadone HCl (Methadone Liq) 45 mg DAILY PO Last administered on 04/24/16 09: 23; Admin Dose 45 MG; Start 04/23/16 at 13:00 Atenolol (Tenormin) 50 mg DAILY PO Last administered on 04/24/16 11:10; Admin Dose 50 MG; Start 04/23/16 at 10:00 Atorvastatin Calcium (Lipitor) 20 mg QHS PO Last administered on 04/23/16 20: 15; Admin Dose 20 MG; Start 04/23/16 at 21:00 Docusate Calcium (Surfak) 240 mg BID PO Last administered on 04/23/16 20:15; Admin Dose 240 MG; Start 04/23/16 at 10:30 Furosemide (Lasix) 20 mg DAILY PO Last administered on 04/24/16 09:18; Admin Dose 20 MG; Start 04/23/16 at 10:00 Nifedipine (Procardia Xl) 60 mg DAILY PO Last administered on 04/24/16 09:19; Admin Dose 60 MG; Start 04/23/16 at 10:00 Ferrous Sulfate (Ferrous Sulfate (Ec)) 325 mg BID PO Last administered on 09:19; Admin Dose 325 MG; Start 04/23/16 at 21:00 Assessment/Plan Chief Complaint/Hosp Course PHYSICAL EXAMINATION: GENERAL: Not in acute distress, lying in bed. HEENT: Normocephalic, atraumatic head. NECK: No carotid bruits. No thyromegaly. LUNGS: Clear to auscultation bilaterally. CARDIAC: Normal cardiac rhythm and sounds. ABDOMEN: Soft, nontender. EXTREMITIES: No cyanosis, clubbing or edema. NEUROLOGIC: He is awake , oriented x3 now. He has fluent speech. Cranial nerve examination shows intact visual forman to visual threat bilaterally. Pupils sluggish from about 2 mm bilaterally. Extraocular movements intact without nystagmus. Symmetrical face. Preserved facial strength and sensation. Corneal reflexes present bilaterally. Tongue is in midline. Motor strength seems to be preserved in all extremities. Normal bulk and tone. Sensory examination grossly intact to light touch and pain. Deep tendon reflexes 2+ upper extremities, absent in lower extremities. Downgoing toes bilaterally. Coordination seems to be preserved on [id number] testing. No dysmetria or tremor. Gait was not assessed. IMPRESSION: Chronic headeaches, worsening in the last 1-2 weeks. Pt states that headaches x 5 years, at least 2-3 a week. Chrinic venous sinus thrombosis, on anticoagulation x 3 years, does not know if have predisposition for bloot clots, no other clots in hx. Questionable blood along tentorium, predominantly dural thickening on MRI. Small venous infarct, could be not acute per stroke neurologist. Off anticoagulation now. Repeat CT pending. Headache treatment. Unclear etiology of thrombosis, if hypercoagulable state, than patient probably has to be put back on anticoagulation. Will send hypercoagulable blood work, also get records from [facility]. It's OK to start anticoagulation, but not clear if he needs one, if not in hypercoagulable state Problems: ONDINA GAGE MD Apr 24, 2016 13:00
--- NOTE | 2016-04-24 13:17 | PN ---
Date/Time of Note Date/Time of Note DATE: 04/24/16 TIME: 13:13 Assessment/Plan VTE Prophylaxis VTE Prophylaxis Intervention: other (Resume novel oral anticoagulant therapy with Eliquis) Lines/Catheters IV [facility]from [facility] Saline Lock Assessment/Plan Problems: (1) Diastolic dysfunction Status: Chronic Comment: Usage of beta blockade which will also help with his migraine syndrome (2) Migraine syndrome Status: Chronic Comment: Resume topiramate prophylactic therapy have counseled the patient on the rationale treatment risks and benefits of treatment and the goals of the treatment and how topiramate is not a as needed medicine (3) Dural sinus thrombosis Status: Acute Comment: Curious whether there is a hypercoagulable state as per neurology and hematology resume anticoagulant (4) Thrombosis, superior sagittal sinus Status: Acute Comment: Resume anticoagulant therapy (5) Hyperlipidemia associated with type 2 diabetes mellitus Status: Chronic Comment: On statin therapy (6) Essential hypertension Status: Chronic Comment: Adequately controlled (7) Diabetes mellitus type 2 in obese Status: Chronic Comment: Adequately controlled (8) Obesity (BMI 30-39.9) Status: Chronic Subjective 24 Hr Interval Summary Constitutional: no complaints (Denies fever chills or sweats) Respiratory: no complaints Cardiovascular: no complaints Gastrointestinal: no complaints Neurologic: other (Reports his headache is dissipating. On review he has a 20 + year history of migraine syndrome and had been on topiramate as prophylactic therapy. However he was taking this on a as needed basis) Exam/Review of Systems Vital Signs Vitals Vital Signs Date Time Temp Pulse Resp B/P Pulse Ox O2 Delivery O2 Flow Rate FiO2 04/24/16 11:10 66 119/62 04/24/16 07:42 98.0 16 100 04/23/16 20:30 Room Air Intake and Output 04/23/16 04/23/16 04/24/16 15:00 23:00 07:00 Intake Total 200 ml 460 ml 1425 ml Output Total 700 ml 650 ml 800 ml Balance -500 ml -190 ml 625 ml Exam Constitutional: alert, oriented Respiratory: clear to auscultation, normal air movement Cardiovascular: nl pulses, regular rate and rhythm Gastrointestinal: nl liver, spleen, non-tender, soft Neurological: [employer] II-XII intact, nl mental status, nl speech, nl strength Results Result Diagram: 04/24/16 1010 04/24/16 1010 Results 24 hrs Laboratory Tests Test 04/24/16 10:10 Alanine Aminotransferase (ALT/SGPT) 19 Albumin 3.5 Albumin/Globulin Ratio 1.16 Alkaline Phosphatase 70 Anion Gap 17 H Aspartate Amino Transf (AST/SGOT) 18 Basophils # 0.0 Basophils % 0.3 Blood Urea Nitrogen 10 Calcium Level 9.2 Carbon Dioxide Level 24 Chloride Level 106 Creatinine 1.04 Direct Bilirubin 0.00 Eosinophils # 0.1 Eosinophils % 1.6 Globulin 3.00 Glucose Level 119 Hematocrit 35.8 L Hemoglobin 11.1 L Indirect Bilirubin 0.4 Lymphocytes # 1.6 Lymphocytes % 23.5 Magnesium Level 1.9 Mean Corpuscular Hemoglobin 25.1 L Mean Corpuscular Hemoglobin Concent 31.0 L Mean Corpuscular Volume 80.8 L Mean Platelet Volume 9.6 Monocytes # 0.5 Monocytes % 8.1 Neutrophils # 4.4 Neutrophils % 66.2 Nucleated Red Blood Cells # 0.0 Nucleated Red Blood Cells % 0.0 Phosphorus Level 2.8 Platelet Count 260 # Potassium Level 3.5 Red Blood Count 4.43 L Red Cell Distribution Width 18.2 H Sodium Level 143 Total Bilirubin 0.4 Total Protein 6.5 White Blood Count 6.7 Medications Medications Current Medications Sodium Chloride (NS) 1,000 ml @ 75 mls/hr [id number] IV Last administered on 04/23 23:46; Admin Dose 75 MLS/HR; Start 04/22/16 at 03:15 Ondansetron HCl (Zofran Inj) 4 mg Q6H PRN IV NAUSEA AND/OR VOMITING; Start at 03:30 Nitroglycerin (Nitroglycerin (Sl Tab) 0.4 Mg) 1 tab Q5M PRN SL CHEST PAIN; Start 04/22/16 at 03:30 Acetaminophen (Tylenol Supp) 650 mg Q4H PRN [place] PAIN LEVEL 1-3 OR FEVER; Start 04/22/16 at 03:30 Morphine Sulfate (morphine) 2 mg Q4H PRN IV PAIN LEVEL 7-10 Last administered on 04/22/16 22:54; Admin Dose 2 MG; Start 04/22/16 at 03:30 Lorazepam (Ativan) 1 mg Q2H PRN IV ANXIETY; Start 04/22/16 at 03:30 Docusate Sodium (Colace) 100 mg Q12H PRN PO CONSTIPATION; Start 04/22/16 at 03: 30 Famotidine (Pepcid Iv) 20 mg Q12 IV Last administered on 04/24/16 09:20; Admin Dose 20 MG; Start 04/22/16 at 09:00 Labetalol HCl (Labetalol) 10 mg Q10M PRN IV ELEVATED BLOOD PRESSURE Last administered on 04/22/16 20:09; Admin Dose 10 MG; Start 04/22/16 at 03:30 Acetaminophen (Tylenol Tab) 650 mg Q4H PRN PO TEMP GREATER THAN 99.6F; Start at 03:30 Hydromorphone HCl (Dilaudid) 1 mg Q6H PRN IV PAIN Last administered on 05:50; Admin Dose 1 MG; Start 04/22/16 at 03:30 Methadone HCl (Methadone Liq) 45 mg DAILY PO Last administered on 04/24/16 09: 23; Admin Dose 45 MG; Start 04/23/16 at 13:00 Atenolol (Tenormin) 50 mg DAILY PO Last administered on 04/24/16 11:10; Admin Dose 50 MG; Start 04/23/16 at 10:00 Atorvastatin Calcium (Lipitor) 20 mg QHS PO Last administered on 04/23/16 20: 15; Admin Dose 20 MG; Start 04/23/16 at 21:00 Docusate Calcium (Surfak) 240 mg BID PO Last administered on 04/23/16 20:15; Admin Dose 240 MG; Start 04/23/16 at 10:30 Furosemide (Lasix) 20 mg DAILY PO Last administered on 04/24/16 09:18; Admin Dose 20 MG; Start 04/23/16 at 10:00 Nifedipine (Procardia Xl) 60 mg DAILY PO Last administered on 04/24/16 09:19; Admin Dose 60 MG; Start 04/23/16 at 10:00 Ferrous Sulfate (Ferrous Sulfate (Ec)) 325 mg BID PO Last administered on 09:19; Admin Dose 325 MG; Start 04/23/16 at 21:00 AIDAN THOMASON MD Apr 24, 2016 13:16
[2016-04-24 15:05] LABS: ANA SCREEN NEGATIVE (NEGATIVE)
[2016-04-24] MEDS: TOPIRAMATE 25 MG TAB PO SCH ×2 (15:13→23:43)
[2016-04-24] MEDS: APIXABAN 5 MG TABLET PO SCH ×2 (15:13→23:44)
[2016-04-24 19:38] VITALS: BP 130/58; RESP 18
[2016-04-24] MEDS: ATORVASTATIN 20 MG TAB PO SCH (20:46)
[2016-04-24] MEDS: FAMOTIDINE 20 MG TAB PO SCH (21:46)
[2016-04-24] MEDS: OXYCODONE/ACETAMINOPHEN (5/325) TAB PO PRN (21:46)
[2016-04-25 05:51] LABS: ADD SCAN DIFF NO
[2016-04-25 05:57] LABS: BASOPHILS % 0.3 % (0.0-2.0); EOSINOPHILS # 0.1 10^3/ul (0.0-0.5); EOSINOPHILS % 1.7 % (0.0-7.0); HEMATOCRIT 33.6 % (42.0-52.0); HEMOGLOBIN 10.5 g/dl (14.0-18.0); LYMPHOCYTES # 2.3 10^3/ul (0.8-2.9); LYMPHOCYTES % 33.4 % (15.0-51.0); MEAN CORPUSCULAR HEMOGLOBIN 25.2 pg (29.0-33.0); MEAN CORPUSCULAR HGB CONC 31.3 g/dl (32.0-37.0); MEAN CORPUSCULAR VOLUME 80.6 fl (82.0-101.0); MEAN PLATELET VOLUME 9.9 fl (7.4-10.4); MONOCYTE # 0.7 10^3/ul (0.3-0.9); MONOCYTES % 10.1 % (0.0-11.0); NEUTROPHIL # 3.7 10^3/ul (1.6-7.5); NEUTROPHILS % 54.4 % (39.0-77.0); PLATELET COUNT 265 10^3/UL (140-415); RED BLOOD COUNT 4.17 10^6/ul (4.70-6.10); RED CELL DISTRIBUTION WIDTH 18.3 % (11.5-14.5); WHITE BLOOD COUNT 6.9 10^3/ul (4.8-10.8)
[2016-04-25 06:00] LABS: ALBUMIN 3.5 g/dl (3.3-4.9)
[2016-04-25 06:01] LABS: POTASSIUM 3.2 mmol/L (3.5-5.1)
[2016-04-25 06:02] LABS: CREATININE 1.14 mg/dl (0.61-1.24)
[2016-04-25 06:03] LABS: BILIRUBIN,INDIRECT 0.2 mg/dl (0-1.1); BILIRUBIN,TOTAL 0.2 mg/dl (0.2-1.3)
[2016-04-25 06:04] LABS: CALCIUM 8.9 mg/dl (8.4-10.2)
[2016-04-25] MEDS: OXYCODONE/ACETAMINOPHEN (5/325) TAB PO PRN ×2 (06:59→20:13)
[2016-04-25 07:24] VITALS: BP 154/83; RESP 18
[2016-04-25] MEDS ORDERED: ONDANSETRON 4 MG TAB PO PRN (08:00)
--- NOTE | 2016-04-25 08:09 | PN ---
Date/Time of Note Date/Time of Note DATE: 04/25/16 TIME: 08:06 Assessment/Plan VTE Prophylaxis VTE Prophylaxis Intervention: other (Novel oral anticoagulant) Lines/Catheters IV Catheter Type (from [facility]): Saline Lock Assessment/Plan Problems: (1) Iron deficiency anemia, unspecified Status: Chronic Comment: Patient is known about this from before. Is quite possible the iron sulfate is adding to his nausea and I will switch that over to iron gluconate. He was scheduled to meet with a bus washer for an intake tomorrow this will have to be postponed by the but I have re-counseled him that he should not let this go on completed as an outpatient workup (2) Migraine syndrome Status: Chronic Comment: Add in the triptan drug to control this uses topiramate as the baseline blocking agent (3) Diastolic dysfunction Status: Chronic Comment: He is on beta-belkys for this (4) Dural sinus thrombosis Status: Acute Comment: Unclear if he has a hypercoagulable state based on the information at hand for now he will be on the anticoagulant using the novel oral anticoagulant (5) Thrombosis, superior sagittal sinus Status: Acute Comment: As above (6) Hyperlipidemia associated with type 2 diabetes mellitus Status: Chronic Comment: Statin therapy (7) Essential hypertension Status: Chronic Comment: Adequately controlled (8) Diabetes mellitus type 2 in obese Status: Chronic Comment: Adequately controlled Subjective 24 Hr Interval Summary Free Text/Dictation Patient reports headache onset after he got up earlier this morning Constitutional: no complaints (No fever chills or sweats) Eyes: no complaints (No issues now although he did have scintillating scotoma earlier) Respiratory: no complaints Cardiovascular: no complaints Gastrointestinal: nausea Exam/Review of Systems Vital Signs Vitals Vital Signs Date Time Temp Pulse Resp B/P Pulse Ox O2 Delivery O2 Flow Rate FiO2 04/25/16 07:24 98.5 58 18 154/83 100 04/23/16 20:30 Room Air Intake and Output 04/24/16 04/24/16 04/25/16 15:00 23:00 07:00 Intake Total 2300 ml 800 ml Balance 2300 ml 800 ml Exam Constitutional: alert, oriented Neck: non-tender, supple Respiratory: clear to auscultation, normal air movement Cardiovascular: nl pulses, regular rate and rhythm Results Result Diagram: 04/25/16 04504/25/16 0451 Results 24 hrs Laboratory Tests Test 04/24/16 10:10 04/25/16 04:51 Alanine Aminotransferase (ALT/SGPT) 19 22 Albumin 3.5 3.5 Albumin/Globulin Ratio 1.16 1.00 Alkaline Phosphatase 70 78 Anion Gap 17 H 18 H Aspartate Amino Transf (AST/SGOT) 18 19 Basophils # 0.0 0.0 Basophils % 0.3 0.3 Blood Urea Nitrogen 10 11 Calcium Level 9.2 8.9 Carbon Dioxide Level 24 24 Chloride Level 106 103 Creatinine 1.04 1.14 Direct Bilirubin 0.00 0.00 Eosinophils # 0.1 0.1 Eosinophils % 1.6 1.7 Globulin 3.00 3.50 H Glucose Level 119 91 Hematocrit 35.8 L 33.6 L Hemoglobin 11.1 L 10.5 L Indirect Bilirubin 0.4 0.2 Lymphocytes # 1.6 2.3 Lymphocytes % 23.5 33.4 Magnesium Level 1.9 Mean Corpuscular Hemoglobin 25.1 L 25.2 L Mean Corpuscular Hemoglobin Concent 31.0 L 31.3 L Mean Corpuscular Volume 80.8 L 80.6 L Mean Platelet Volume 9.6 9.9 Monocytes # 0.5 0.7 Monocytes % 8.1 10.1 Neutrophils # 4.4 3.7 Neutrophils % 66.2 54.4 Nucleated Red Blood Cells # 0.0 0.0 Nucleated Red Blood Cells % 0.0 0.0 Phosphorus Level 2.8 Platelet Count 260 # 265 Potassium Level 3.5 3.2 L Red Blood Count 4.43 L 4.17 L Red Cell Distribution Width 18.2 H 18.3 H Sodium Level 143 142 Total Bilirubin 0.4 0.2 Total Protein 6.5 7.0 White Blood Count 6.7 6.9 Medications Medications Current Medications Nitroglycerin (Nitroglycerin (Sl Tab) 0.4 Mg) 1 tab Q5M PRN SL CHEST PAIN; Start 04/22/16 at 03:30 Acetaminophen (Tylenol Supp) 650 mg Q4H PRN [place] PAIN LEVEL 1-3 OR FEVER; Start 04/22/16 at 03:30 Morphine Sulfate (morphine) 2 mg Q4H PRN IV PAIN LEVEL 7-10 Last administered on 04/22/16t 22:54; Admin Dose 2 MG; Start 04/22/16 at 03:30 Lorazepam (Ativan) 1 mg Q2H PRN IV ANXIETY; Start 04/22/16 at 03:30 Docusate Sodium (Colace) 100 mg Q12H PRN PO CONSTIPATION; Start 04/22/16 at 03: 30 Labetalol HCl (Labetalol) 10 mg Q10M PRN IV ELEVATED BLOOD PRESSURE Last administered on 04/22/16 20:09; Admin Dose 10 MG; Start 04/22/16 at 03:30 Acetaminophen (Tylenol Tab) 650 mg Q4H PRN PO TEMP GREATER THAN 99.6F; Start at 03:30 Methadone HCl (Methadone Liq) 45 mg DAILY PO Last administered on 04/24/16 09: 23; Admin Dose 45 MG; Start 04/23/16 at 13:00 Atenolol (Tenormin) 50 mg DAILY PO Last administered on 04/24/16 11:10; Admin Dose 50 MG; Start 04/23/16 at 10:00 Atorvastatin Calcium (Lipitor) 20 mg QHS PO Last administered on 04/24/16 20: 46; Admin Dose 20 MG; Start 04/23/16 at 21:00 Docusate Calcium (Surfak) 240 mg BID PO Last administered on 04/24/16 21:45; Admin Dose 240 MG; Start 04/23/16 at 10:30 Furosemide (Lasix) 20 mg DAILY PO Last administered on 04/24/16 09:18; Admin Dose 20 MG; Start 04/23/16 at 10:00 Nifedipine (Procardia Xl) 60 mg DAILY PO Last administered on 04/24/16 09:19; Admin Dose 60 MG; Start 04/23/16 at 10:00 Ferrous Sulfate (Ferrous Sulfate (Ec)) 325 mg BID PO Last administered on 20:46; Admin Dose 325 MG; Start 04/23/16 at 21:00 Topiramate (Topamax) 25 mg BID PO Last administered on 04/24/16 23:43; Admin Dose 25 MG; Start 04/24/16 at 14:30 Apixaban (Eliquis) 2.5 mg BID PO Last administered on 04/24/16 23:44; Admin Dose 2.5 MG; Start 04/24/16 at 13:30 Oxycodone/ Acetaminophen (Percocet (5/ 325)) 2 tab Q6 PRN PO pain Last administered on 04/25/16 06:59; Admin Dose 2 TAB; Start 04/24/16 at 21:30 Famotidine (Pepcid) 20 mg BID PO Last administered on 04/24/16 21:46; Admin Dose 20 MG; Start 04/24/16 at 21:30 Ondansetron HCl (Zofran Tab) 4 mg Q6H PRN PO NAUSEA AND/OR VOMITING; Start at 08:00 Sumatriptan Succinate (Imitrex) 50 mg ONCE ONCE PO ; Start 04/25/16 at 09:30; Stop 04/25/16 at 09:31 Ferrous Gluconate (Fergon) 325 mg BID PO ; Start 04/25/16 at 09:00; Stop at 08:59; Status AIDAN HENDRICKSON MD Apr 25, 2016 08:09
[2016-04-25] MEDS ORDERED: SUMATRIPTAN 50 MG TAB PO PRN (08:30)
[2016-04-25] MEDS: FAMOTIDINE 20 MG TAB PO SCH ×2 (08:51→20:09)
[2016-04-25] MEDS: TOPIRAMATE 25 MG TAB PO SCH ×2 (08:51→20:10)
[2016-04-25] MEDS: FUROSEMIDE 20 MG TAB PO SCH (08:51)
[2016-04-25] MEDS: LOSARTAN 50 MG TAB PO SCH (08:52)
[2016-04-25] MEDS: APIXABAN 5 MG TABLET PO SCH ×2 (08:52→20:10)
[2016-04-25] MEDS: DOCUSATE CALCIUM 240 MG CAP PO SCH ×2 (08:52→21:04)
[2016-04-25 08:55] VITALS: BP 139/62; PULSE 55
[2016-04-25] MEDS: ATENOLOL 50 MG TAB PO SCH (09:00)
[2016-04-25] MEDS ORDERED: SUMATRIPTAN 50 MG TAB PO ONE (09:30)
[2016-04-25] MEDS: FERROUS GLUCONATE (EC) 325 MG TAB PO SCH ×2 (09:44→20:10)
[2016-04-25] MEDS: METHADONE (1 MG/ML 5 ML PO UD SYG) PO SCH (09:48)
--- NOTE | 2016-04-25 16:21 | CONS ---
Date/Time of Note Date/Time of Note DATE: 04/25/16 TIME: 16:18 Consult Date/Type/Reason Admit Date/Time Apr 22, 2016 at 03:19 Initial Consult Date 04/22/16 Type of Consultation: neurology Ordering Provider: FEDERICO WIGGINS [employer] Subjective no acute problems, headaches on-off Objective Vital Signs Date Time Temp Pulse Resp B/P Pulse Ox O2 Delivery O2 Flow Rate FiO2 04/25/16 08:55 55 139/62 04/25/16 07:24 98.5 18 100 04/23/16 20:30 Room Air Intake and Output 04/24/16 04/24/16 04/25/16 15:00 23:00 07:00 Intake Total 2300 ml 800 ml Balance 2300 ml 800 ml Results/Medications Result Diagram: 04/25/16 0451 04/25/16 0451 Results 24 hrs Laboratory Tests Test 04/25/16 04:51 Alanine Aminotransferase (ALT/SGPT) 22 Albumin 3.5 Albumin/Globulin Ratio 1.00 Alkaline Phosphatase 78 Anion Gap 18 H Aspartate Amino Transf (AST/SGOT) 19 Basophils # 0.0 Basophils % 0.3 Blood Urea Nitrogen 11 Calcium Level 8.9 Carbon Dioxide Level 24 Chloride Level 103 Creatinine 1.14 Direct Bilirubin 0.00 Eosinophils # 0.1 Eosinophils % 1.7 Globulin 3.50 H Glucose Level 91 Hematocrit 33.6 L Hemoglobin 10.5 L Indirect Bilirubin 0.2 Lymphocytes # 2.3 Lymphocytes % 33.4 Mean Corpuscular Hemoglobin 25.2 L Mean Corpuscular Hemoglobin Concent 31.3 L Mean Corpuscular Volume 80.6 L Mean Platelet Volume 9.9 Monocytes # 0.7 Monocytes % 10.1 Neutrophils # 3.7 Neutrophils % 54.4 Nucleated Red Blood Cells # 0.0 Nucleated Red Blood Cells % 0.0 Platelet Count 265 Potassium Level 3.2 L Red Blood Count 4.17 L Red Cell Distribution Width 18.3 H Sodium Level 142 Total Bilirubin 0.2 Total Protein 7.0 White Blood Count 6.9 Medications Current Medications Nitroglycerin (Nitroglycerin (Sl Tab) 0.4 Mg) 1 tab Q5M PRN SL CHEST PAIN; Start 04/22/16 at 03:30 Acetaminophen (Tylenol Supp) 650 mg Q4H PRN [place] PAIN LEVEL 1-3 OR FEVER; Start 04/22/16 at 03:30 Morphine Sulfate (morphine) 2 mg Q4H PRN IV PAIN LEVEL 7-10 Last administered on 04/22/16 22:54; Admin Dose 2 MG; Start 04/22/16 at 03:30 Lorazepam (Ativan) 1 mg Q2H PRN IV ANXIETY; Start 04/22/16 at 03:30 Docusate Sodium (Colace) 100 mg Q12H PRN PO CONSTIPATION; Start 04/22/16 at 03: 30 Labetalol HCl (Labetalol) 10 mg Q10M PRN IV ELEVATED BLOOD PRESSURE Last administered on 04/22/16 20:09; Admin Dose 10 MG; Start 04/22/16 at 03:30 Acetaminophen (Tylenol Tab) 650 mg Q4H PRN PO TEMP GREATER THAN 99.6F Last administered on 04/25/16 15:43; Admin Dose 650 MG; Start 04/22/16 at 03:30 Methadone HCl (Methadone Liq) 45 mg DAILY PO Last administered on 04/25/16 09: 48; Admin Dose 45 MG; Start 04/23/16 at 13:00 Atenolol (Tenormin) 50 mg DAILY PO Last administered on 04/24/16 11:10; Admin Dose 50 MG; Start 04/23/16 at 10:00 Atorvastatin Calcium (Lipitor) 20 mg QHS PO Last administered on 04/24/16 20: 46; Admin Dose 20 MG; Start 04/23/16 at 21:00 Docusate Calcium (Surfak) 240 mg BID PO Last administered on 04/25/16 08:52; Admin Dose 240 MG; Start 04/23/16 at 10:30 Furosemide (Lasix) 20 mg DAILY PO Last administered on 04/25/16 08:51; Admin Dose 20 MG; Start 04/23/16 at 10:00 Topiramate (Topamax) 25 mg BID PO Last administered on 04/25/16 08:51; Admin Dose 25 MG; Start 04/24/16 at 14:30 Apixaban (Eliquis) 2.5 mg BID PO Last administered on 04/25/16 08:52; Admin Dose 2.5 MG; Start 04/24/16 at 13:30 Oxycodone/ Acetaminophen (Percocet (5/ 325)) 2 tab Q6 PRN PO pain Last administered on 04/25/16 06:59; Admin Dose 2 TAB; Start 04/24/16 at 21:30 Famotidine (Pepcid) 20 mg BID PO Last administered on 04/25/16 08:51; Admin Dose 20 MG; Start 04/24/16 at 21:30 Ondansetron HCl (Zofran Tab) 4 mg Q6H PRN PO NAUSEA AND/OR VOMITING Last administered on 04/25/16 15:46; Admin Dose 4 MG; Start 04/25/16 at 08:00 Ferrous Gluconate (Fergon) 325 mg BID PO Last administered on 04/25/16 09:44; Admin Dose 325 MG; Start 04/25/16 at 09:00; Stop 05/25/16 at 08:59 Sumatriptan Succinate (Imitrex) 50 mg Q12 PRN PO HEADACHE; Start 04/25/16 at 08 :30 Losartan Potassium (Cozaar) 100 mg DAILY PO Last administered on 04/25/16 08: 52; Admin Dose 100 MG; Start 04/25/16 at 09:00 Assessment/Plan Chief Complaint/Hosp Course PHYSICAL EXAMINATION: GENERAL: Not in acute distress, lying in bed. HEENT: Normocephalic, atraumatic head. NECK: No carotid bruits. No thyromegaly. LUNGS: Clear to auscultation bilaterally. CARDIAC: Normal cardiac rhythm and sounds. ABDOMEN: Soft, nontender. EXTREMITIES: No cyanosis, clubbing or edema. NEUROLOGIC: He is awake , oriented x3. He has fluent speech. Cranial nerve examination shows intact visual forman to visual threat bilaterally. Pupils sluggish from about 2 mm bilaterally. Extraocular movements intact without nystagmus. Symmetrical face. Preserved facial strength and sensation. Corneal reflexes present bilaterally. Tongue is in midline. Motor strength seems to be preserved in all extremities. Normal bulk and tone. Sensory examination grossly intact to light touch and pain. Deep tendon reflexes 2+ upper extremities, absent in lower extremities. Downgoing toes bilaterally. Coordination seems to be preserved on [id number] testing. No dysmetria or tremor. Gait was not assessed. IMPRESSION: Chronic headeaches, worsening in the last 1-2 weeks. Pt states that headaches x 5 years, at least 2-3 a week. Chronic venous sinus thrombosis, on anticoagulation x 3 years, does not know if have predisposition for bloot clots, no other clots in hx. Questionable blood along tentorium, predominantly dural thickening on MRI. Small venous infarct. Restarted on anticoagulation now , per hem/onc suggestion. Headache treatment. Unclear etiology of thrombosis, if hypercoagulable state, than patient probably has to continue anticoagulation indefinitely. Hypercoagulable blood work pending , also get records from [place]. It's OK to continue anticoagulation, but not clear if he needs one and for how long, if not in hypercoagulable state. OK for d/c. F/u with primary neurologist Dr. Garcia Problems: ONDINA GAGE MD Apr 25, 2016 16:20
--- NOTE | 2016-04-25 19:26 | CONS ---
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 CAT scan in the ER showed possible tentorial subdural hematomas and anticoagulation was stopped. His MRI also shows some tiny acute venous infarct on the right parasagittal area. MRI of the brain does not confirm presence of subdural hematoma, states that tentorium has a dural thickening and though a small amount of blood product cannot be excluded, but predominantly is dural thickening. Repeat CAT scan of the head- did not show bleeding The patient is followed by neurosurgeon, Dr. Corey as well. i think that pt can be continued on anticoagulation if all agree Unclear etiology of thrombosis, but pt clearly has hypercoagulable state with chronic sinus thrombosis hypercoagulable blood work has been ordered, result-P records from [place] [facility] ANEMIA C/W ACD MONITOR CLOSELY OBSERVE FOR BLEEDING AND HEMOLYSIS STABLE Problems: Consultation Date/Type/Reason Admit Date/Time Apr 22, 2016 at 03:19 Initial Consult Date 04/23/16 Type of Consultation: HEMEON Referring Provider: FEDERICO WIGGINS NP 24 HR Interval Summary Free Text/Dictation WESTLEY NOTED RESTARTED ON ELIQIIS NO RUSSELL Exam/Review of Systems Vital Signs Vitals Vital Signs Date Time Temp Pulse Resp B/P Pulse Ox O2 Delivery O2 Flow Rate FiO2 04/25/16 08:55 55 139/62 04/25/16 07:24 98.5 18 100 04/23/16 20:30 Room Air Intake and Output 04/24/16 04/24/16 04/25/16 15:00 23:00 07:00 Intake Total 2300 ml 800 ml Balance 2300 ml 800 ml Exam PHYSICAL EXAMINATION: GENERAL: Not in acute distress, lying in bed. HEENT: Normocephalic, atraumatic head. NECK: No carotid bruits. No thyromegaly. LUNGS: Clear to auscultation bilaterally. CARDIAC: Normal cardiac rhythm and sounds. ABDOMEN: Soft, nontender. EXTREMITIES: No cyanosis, clubbing or edema. NEUROLOGIC: He is A,A,NAD, ABLE TO FOLLOW COMMANDS Results Result Diagram: 04/25/16 0451 04/25/16 0451 Results 24 hrs Laboratory Tests Test 04/25/16 04:51 Alanine Aminotransferase (ALT/SGPT) 22 Albumin 3.5 Albumin/Globulin Ratio 1.00 Alkaline Phosphatase 78 Anion Gap 18 H Aspartate Amino Transf (AST/SGOT) 19 Basophils # 0.0 Basophils % 0.3 Blood Urea Nitrogen 11 Calcium Level 8.9 Carbon Dioxide Level 24 Chloride Level 103 Creatinine 1.14 Direct Bilirubin 0.00 Eosinophils # 0.1 Eosinophils % 1.7 Globulin 3.50 H Glucose Level 91 Hematocrit 33.6 L Hemoglobin 10.5 L Indirect Bilirubin 0.2 Lymphocytes # 2.3 Lymphocytes % 33.4 Mean Corpuscular Hemoglobin 25.2 L Mean Corpuscular Hemoglobin Concent 31.3 L Mean Corpuscular Volume 80.6 L Mean Platelet Volume 9.9 Monocytes # 0.7 Monocytes % 10.1 Neutrophils # 3.7 Neutrophils % 54.4 Nucleated Red Blood Cells # 0.0 Nucleated Red Blood Cells % 0.0 Platelet Count 265 Potassium Level 3.2 L Red Blood Count 4.17 L Red Cell Distribution Width 18.3 H Sodium Level 142 Total Bilirubin 0.2 Total Protein 7.0 White Blood Count 6.9 Medications Medications Current Medications Nitroglycerin (Nitroglycerin (Sl Tab) 0.4 Mg) 1 tab Q5M PRN SL CHEST PAIN; Start 04/22/16 at 03:30 Acetaminophen (Tylenol Supp) 650 mg Q4H PRN [place] PAIN LEVEL 1-3 OR FEVER; Start 04/22/16 at 03:30 Morphine Sulfate (morphine) 2 mg Q4H PRN IV PAIN LEVEL 7-10 Last administered on 04/22/16 22:54; Admin Dose 2 MG; Start 04/22/16 at 03:30 Lorazepam (Ativan) 1 mg Q2H PRN IV ANXIETY; Start 04/22/16 at 03:30 Docusate Sodium (Colace) 100 mg Q12H PRN PO CONSTIPATION; Start 04/22/16 at 03: 30 Labetalol HCl (Labetalol) 10 mg Q10M PRN IV ELEVATED BLOOD PRESSURE Last administered on 04/22/16 20:09; Admin Dose 10 MG; Start 04/22/16 at 03:30 Acetaminophen (Tylenol Tab) 650 mg Q4H PRN PO TEMP GREATER THAN 99.6F Last administered on 04/25/16 15:43; Admin Dose 650 MG; Start 04/22/16 at 03:30 Methadone HCl (Methadone Liq) 45 mg DAILY PO Last administered on 04/25/16 09: 48; Admin Dose 45 MG; Start 04/23/16 at 13:00 Atenolol (Tenormin) 50 mg DAILY PO Last administered on 04/24/16 11:10; Admin Dose 50 MG; Start 04/23/16 at 10:00 Atorvastatin Calcium (Lipitor) 20 mg QHS PO Last administered on 04/24/16 20: 46; Admin Dose 20 MG; Start 04/23/16 at 21:00 Docusate Calcium (Surfak) 240 mg BID PO Last administered on 04/25/16 08:52; Admin Dose 240 MG; Start 04/23/16 at 10:30 Furosemide (Lasix) 20 mg DAILY PO Last administered on 04/25/16 08:51; Admin Dose 20 MG; Start 04/23/16 at 10:00 Topiramate (Topamax) 25 mg BID PO Last administered on 04/25/16 08:51; Admin Dose 25 MG; Start 04/24/16 at 14:30 Apixaban (Eliquis) 2.5 mg BID PO Last administered on 04/25/16 08:52; Admin Dose 2.5 MG; Start 04/24/16 at 13:30 Oxycodone/ Acetaminophen (Percocet (5/ 325)) 2 tab Q6 PRN PO pain Last administered on 04/25/16 06:59; Admin Dose 2 TAB; Start 04/24/16 at 21:30 Famotidine (Pepcid) 20 mg BID PO Last administered on 04/25/16 08:51; Admin Dose 20 MG; Start 04/24/16 at 21:30 Ondansetron HCl (Zofran Tab) 4 mg Q6H PRN PO NAUSEA AND/OR VOMITING Last administered on 04/25/16 15:46; Admin Dose 4 MG; Start 04/25/16 at 08:00 Ferrous Gluconate (Fergon) 325 mg BID PO Last administered on 04/25/16 09:44; Admin Dose 325 MG; Start 04/25/16 at 09:00; Stop 05/25/16 at 08:59 Losartan Potassium (Cozaar) 100 mg DAILY PO Last administered on 04/25/16 08: 52; Admin Dose 100 MG; Start 04/25/16 at 09:00 Sumatriptan Succinate (Imitrex) 50 mg Q12 PRN PO HEADACHE; Start 04/25/16 at 19 :00 PADMINI SCOTT MD Apr 25, 2016 19:26
[2016-04-25 19:34] VITALS: BP 154/76; RESP 16
[2016-04-25] MEDS: ATORVASTATIN 20 MG TAB PO SCH (20:10)
[2016-04-25] MEDS: SUMATRIPTAN 50 MG TAB PO PRN (21:04)
[2016-04-25] MEDS ORDERED: POTASSIUM CHLORIDE (SR) 20 MEQ TAB PO STA (21:30)
[2016-04-26 03:45] VITALS: BP 153/77; PULSE 72
[2016-04-26] MEDS: OXYCODONE/ACETAMINOPHEN (5/325) TAB PO PRN (03:49)
[2016-04-26] MEDS ORDERED: LORAZEPAM 1 MG TAB PO PRN (04:30)
[2016-04-26 07:30] VITALS: BP 134/64; RESP 18
[2016-04-26 07:52] LABS: ADD SCAN DIFF NO
[2016-04-26 07:56] LABS: BASOPHILS % 0.1 % (0.0-2.0); EOSINOPHILS # 0.1 10^3/ul (0.0-0.5); EOSINOPHILS % 1.2 % (0.0-7.0); HEMATOCRIT 34.6 % (42.0-52.0); HEMOGLOBIN 10.6 g/dl (14.0-18.0); LYMPHOCYTES # 1.6 10^3/ul (0.8-2.9); LYMPHOCYTES % 21.3 % (15.0-51.0); MEAN CORPUSCULAR HEMOGLOBIN 24.7 pg (29.0-33.0); MEAN CORPUSCULAR HGB CONC 30.6 g/dl (32.0-37.0); MEAN CORPUSCULAR VOLUME 80.7 fl (82.0-101.0); MEAN PLATELET VOLUME 9.7 fl (7.4-10.4); MONOCYTE # 0.7 10^3/ul (0.3-0.9); MONOCYTES % 9.5 % (0.0-11.0); NEUTROPHIL # 5.2 10^3/ul (1.6-7.5); NEUTROPHILS % 67.8 % (39.0-77.0); PLATELET COUNT 253 10^3/UL (140-415); RED BLOOD COUNT 4.29 10^6/ul (4.70-6.10); RED CELL DISTRIBUTION WIDTH 18.2 % (11.5-14.5); WHITE BLOOD COUNT 7.7 10^3/ul (4.8-10.8)
[2016-04-26 08:08] LABS: ALBUMIN 3.3 g/dl (3.3-4.9)
[2016-04-26 08:09] LABS: POTASSIUM 4.1 mmol/L (3.5-5.1)
[2016-04-26 08:11] LABS: ALBUMIN/GLOBULIN RATIO 1.22; BILIRUBIN,INDIRECT 0.3 mg/dl (0-1.1); BILIRUBIN,TOTAL 0.3 mg/dl (0.2-1.3); CREATININE 1.57 mg/dl (0.61-1.24)
[2016-04-26 08:12] LABS: CALCIUM 9.1 mg/dl (8.4-10.2)
[2016-04-26] MEDS: ATENOLOL 50 MG TAB PO SCH (09:00)
[2016-04-26] MEDS: FAMOTIDINE 20 MG TAB PO SCH ×2 (09:38→22:02)
[2016-04-26] MEDS: DOCUSATE CALCIUM 240 MG CAP PO SCH ×2 (09:38→22:02)
[2016-04-26] MEDS: LOSARTAN 50 MG TAB PO SCH (09:38)
[2016-04-26] MEDS: TOPIRAMATE 25 MG TAB PO SCH ×2 (09:39→22:02)
[2016-04-26] MEDS: FUROSEMIDE 20 MG TAB PO SCH (09:40)
[2016-04-26] MEDS: APIXABAN 5 MG TABLET PO SCH ×2 (09:41→22:04)
[2016-04-26] MEDS: FERROUS GLUCONATE (EC) 325 MG TAB PO SCH ×2 (09:41→22:01)
[2016-04-26] MEDS: METHADONE (1 MG/ML 5 ML PO UD SYG) PO SCH (09:44)
--- NOTE | 2016-04-26 10:32 | PN ---
Date/Time of Note Date/Time of Note DATE: 04/26/16 TIME: 10:29 Assessment/Plan VTE Prophylaxis VTE Prophylaxis Intervention: other (Eliquis) Lines/Catheters [facility] Assessment/Plan Chief Complaint/Hosp Course Assessment/Plan Problems: (1) Iron deficiency anemia, unspecified Status: Chronic Comment: Patient is known about this from before. Is quite possible the iron sulfate is adding to his nausea and I will switch that over to iron gluconate. He was scheduled to meet with a crossbow maker as outpt today - this will have to be postponed by the but pt re-counseled that he should not let this go on completed as an outpatient workup (2) Migraine syndrome Status: Chronic Comment: -continue triptan drug to control this uses topiramate as the baseline blocking agent (3) Diastolic dysfunction Status: Chronic Comment: He is on beta-belkys for this (4) Dural sinus thrombosis Status: Acute Comment: Unclear if he has a hypercoagulable state based on the information at hand (although oer Heme/Onc it appears he probably has this) - for now he will continue Eliquis. (5) Thrombosis, superior sagittal sinus Status: Acute Comment: As above (6) Hyperlipidemia associated with type 2 diabetes mellitus Status: Chronic Comment: Statin therapy (7) Essential hypertension Status: Chronic Comment: Adequately controlled (8) Diabetes mellitus type 2 in obese Status: Chronic Comment: Adequately controlled Problems: Subjective 24 Hr Interval Summary Free Text/Dictation Pt had severe RUSSELL episode this AM, partially relieved with Ativan and Percocet. Exam/Review of Systems Vital Signs Vitals Vital Signs Date Time Temp Pulse Resp B/P Pulse Ox O2 Delivery O2 Flow Rate FiO2 04/26/16 07:30 98.4 54 18 134/64 98 04/23/16 20:30 Room Air Intake and Output 04/25/16 04/25/16 04/26/16 15:00 23:00 07:00 Intake Total 1340 ml 700 ml Balance 1340 ml 700 ml Exam Constitutional: alert, oriented HEENT: PERRL, EOMI Neck: non-tender, supple Respiratory: clear to auscultation, normal air movement Cardiovascular: nl pulses, regular rate and rhythm Results Result Diagram: 04/26/16 0725 04/26/16 0725 Results 24 hrs Laboratory Tests Test 04/26/16 07:25 Alanine Aminotransferase (ALT/SGPT) 22 Albumin 3.3 Albumin/Globulin Ratio 1.22 Alkaline Phosphatase 68 Anion Gap 14 Aspartate Amino Transf (AST/SGOT) 17 Basophils # 0.0 Basophils % 0.1 Blood Urea Nitrogen 16 Calcium Level 9.1 Carbon Dioxide Level 27 Chloride Level 103 Creatinine 1.57 H Direct Bilirubin 0.00 Eosinophils # 0.1 Eosinophils % 1.2 Globulin 2.70 Glucose Level 94 Hematocrit 34.6 L Hemoglobin 10.6 L Indirect Bilirubin 0.3 Lymphocytes # 1.6 Lymphocytes % 21.3 Mean Corpuscular Hemoglobin 24.7 L Mean Corpuscular Hemoglobin Concent 30.6 L Mean Corpuscular Volume 80.7 L Mean Platelet Volume 9.7 Monocytes # 0.7 Monocytes % 9.5 Neutrophils # 5.2 Neutrophils % 67.8 Nucleated Red Blood Cells # 0.0 Nucleated Red Blood Cells % 0.0 Platelet Count 253 Potassium Level 4.1 Red Blood Count 4.29 L Red Cell Distribution Width 18.2 H Sodium Level 140 Total Bilirubin 0.3 Total Protein 6.0 #L White Blood Count 7.7 Medications Medications Current Medications Nitroglycerin (Nitroglycerin (Sl Tab) 0.4 Mg) 1 tab Q5M PRN SL CHEST PAIN; Start 04/22/16 at 03:30 Acetaminophen (Tylenol Supp) 650 mg Q4H PRN [place] PAIN LEVEL 1-3 OR FEVER; Start 04/22/16 at 03:30 Morphine Sulfate (morphine) 2 mg Q4H PRN IV PAIN LEVEL 7-10 Last administered on 04/22/16 22:54; Admin Dose 2 MG; Start 04/22/16 at 03:30 Lorazepam (Ativan) 1 mg Q2H PRN IV ANXIETY; Start 04/22/16 at 03:30 Docusate Sodium (Colace) 100 mg Q12H PRN PO CONSTIPATION; Start 04/22/16 at 03: 30 Labetalol HCl (Labetalol) 10 mg Q10M PRN IV ELEVATED BLOOD PRESSURE Last administered on 04/22/16 20:09; Admin Dose 10 MG; Start 04/22/16 at 03:30 Acetaminophen (Tylenol Tab) 650 mg Q4H PRN PO TEMP GREATER THAN 99.6F Last administered on 04/25/16 15:43; Admin Dose 650 MG; Start 04/22/16 at 03:30 Methadone HCl (Methadone Liq) 45 mg DAILY PO Last administered on 04/26/16 09: 44; Admin Dose 45 MG; Start 04/23/16 at 13:00 Atenolol (Tenormin) 50 mg DAILY PO Last administered on 04/24/16 11:10; Admin Dose 50 MG; Start 04/23/16 at 10:00 Atorvastatin Calcium (Lipitor) 20 mg QHS PO Last administered on 04/25/16 20: 10; Admin Dose 20 MG; Start 04/23/16 at 21:00 Docusate Calcium (Surfak) 240 mg BID PO Last administered on 04/26/16 09:38; Admin Dose 240 MG; Start 04/23/16 at 10:30 Furosemide (Lasix) 20 mg DAILY PO Last administered on 04/26/16 09:40; Admin Dose 20 MG; Start 04/23/16 at 10:00 Topiramate (Topamax) 25 mg BID PO Last administered on 04/26/16 09:39; Admin Dose 25 MG; Start 04/24/16 at 14:30 Apixaban (Eliquis) 2.5 mg BID PO Last administered on 04/26/16 09:41; Admin Dose 2.5 MG; Start 04/24/16 at 13:30 Oxycodone/ Acetaminophen (Percocet (5/ 325)) 2 tab Q6 PRN PO pain Last administered on 04/26/16 03:49; Admin Dose 2 TAB; Start 04/24/16 at 21:30 Famotidine (Pepcid) 20 mg BID PO Last administered on 04/26/16 09:38; Admin Dose 20 MG; Start 04/24/16 at 21:30 Ondansetron HCl (Zofran Tab) 4 mg Q6H PRN PO NAUSEA AND/OR VOMITING Last administered on 04/25/16 15:46; Admin Dose 4 MG; Start 04/25/16 at 08:00 Ferrous Gluconate (Fergon) 325 mg BID PO Last administered on 04/26/16 09:41; Admin Dose 325 MG; Start 04/25/16 at 09:00; Stop 05/25/16 at 08:59 Losartan Potassium (Cozaar) 100 mg DAILY PO Last administered on 04/26/16 09: 38; Admin Dose 100 MG; Start 04/25/16 at 09:00 Sumatriptan Succinate (Imitrex) 50 mg Q12 PRN PO HEADACHE Last administered on 04/25/16 21:04; Admin Dose 50 MG; Start 04/25/16 at 19:00 Lorazepam 1 mg 1 mg Q8H PRN PO ANXIETY Last administered on 04/26/16 04:10; Admin Dose 1 MG; Start 04/26/16 at 04:30 Sodium Chloride (NS) 1,000 ml @ 75 mls/hr [id number] IV ; Start 04/26/16 at 10:30 KENDRICK ZALDIVAR Apr 26, 2016 10:32
[2016-04-26] MEDS: SOD CHLORIDE 0.9% 1,000 ML IV SCH ×2 (13:30→23:50)
[2016-04-26] MEDS: CALCIUM CARBONATE 500 MG CHEW TAB PO PRN (15:16)
[2016-04-26 19:47] VITALS: BP 136/74; RESP 18
[2016-04-26] MEDS: ATORVASTATIN 20 MG TAB PO SCH (22:02)
--- NOTE | 2016-04-26 22:12 | CONS ---
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 CAT scan in the ER showed possible tentorial subdural hematomas and anticoagulation was stopped. His MRI also shows some tiny acute venous infarct on the right parasagittal area. MRI of the brain does not confirm presence of subdural hematoma, states that tentorium has a dural thickening and though a small amount of blood product cannot be excluded, but predominantly is dural thickening. Repeat CAT scan of the head- did not show bleeding The patient is followed by neurosurgeon, Dr. Corey as well. i think that pt can be continued on anticoagulation if all agree Unclear etiology of thrombosis, but pt clearly has hypercoagulable state with chronic sinus thrombosis hypercoagulable blood work has been ordered, result-P records from [facility] ANEMIA C/W ACD MONITOR CLOSELY OBSERVE FOR BLEEDING AND HEMOLYSIS STABLE Problems: Consultation Date/Type/Reason Admit Date/Time Apr 22, 2016 at 03:19 Initial Consult Date 04/23/16 Type of Consultation: HEMEON Referring Provider: FEDERICO WIGGINS NP 24 HR Interval Summary Free Text/Dictation ALL NOTED INTERMITTENT RUSSELL NO N/V Exam/Review of Systems Vital Signs Vitals Vital Signs Date Time Temp Pulse Resp B/P Pulse Ox O2 Delivery O2 Flow Rate FiO2 04/26/16 19:47 98.1 81 18 136/74 98 04/23/16 20:30 Room Air Intake and Output 04/25/16 04/25/16 04/26/16 15:00 23:00 07:00 Intake Total 1340 ml 700 ml Balance 1340 ml 700 ml Exam Constitutional: alert, oriented HEENT: PERRL, EOMI Neck: non-tender, supple Respiratory: clear to auscultation, normal air movement Cardiovascular: nl pulses, regular rate and rhythm Results Result Diagram: 04/26/1625 04/26/16 0725 Results 24 hrs Laboratory Tests Test 04/26/16 07:25 Alanine Aminotransferase (ALT/SGPT) 22 Albumin 3.3 Albumin/Globulin Ratio 1.22 Alkaline Phosphatase 68 Anion Gap 14 Aspartate Amino Transf (AST/SGOT) 17 Basophils # 0.0 Basophils % 0.1 Blood Urea Nitrogen 16 Calcium Level 9.1 Carbon Dioxide Level 27 Chloride Level 103 Creatinine 1.57 H Direct Bilirubin 0.00 Eosinophils # 0.1 Eosinophils % 1.2 Globulin 2.70 Glucose Level 94 Hematocrit 34.6 L Hemoglobin 10.6 L Indirect Bilirubin 0.3 Lymphocytes # 1.6 Lymphocytes % 21.3 Mean Corpuscular Hemoglobin 24.7 L Mean Corpuscular Hemoglobin Concent 30.6 L Mean Corpuscular Volume 80.7 L Mean Platelet Volume 9.7 Monocytes # 0.7 Monocytes % 9.5 Neutrophils # 5.2 Neutrophils % 67.8 Nucleated Red Blood Cells # 0.0 Nucleated Red Blood Cells % 0.0 Platelet Count 253 Potassium Level 4.1 Red Blood Count 4.29 L Red Cell Distribution Width 18.2 H Sodium Level 140 Total Bilirubin 0.3 Total Protein 6.0 #L White Blood Count 7.7 Medications Medications Current Medications Nitroglycerin (Nitroglycerin (Sl Tab) 0.4 Mg) 1 tab Q5M PRN SL CHEST PAIN; Start 04/22/16 at 03:30 Acetaminophen (Tylenol Supp) 650 mg Q4H PRN [place] PAIN LEVEL 1-3 OR FEVER; Start 04/22/16 at 03:30 Morphine Sulfate (morphine) 2 mg Q4H PRN IV PAIN LEVEL 7-10 Last administered on 04/22/16 22:54; Admin Dose 2 MG; Start 04/22/16 at 03:30 Lorazepam (Ativan) 1 mg Q2H PRN IV ANXIETY; Start 04/22/16 at 03:30 Docusate Sodium (Colace) 100 mg Q12H PRN PO CONSTIPATION; Start 04/22/16 at 03: 30 Labetalol HCl (Labetalol) 10 mg Q10M PRN IV ELEVATED BLOOD PRESSURE Last administered on 04/22/16 20:09; Admin Dose 10 MG; Start 04/22/16 at 03:30 Acetaminophen (Tylenol Tab) 650 mg Q4H PRN PO TEMP GREATER THAN 99.6F Last administered on 04/25/16 15:43; Admin Dose 650 MG; Start 04/22/16 at 03:30 Methadone HCl (Methadone Liq) 45 mg DAILY PO Last administered on 04/26/16 09: 44; Admin Dose 45 MG; Start 04/23/16 at 13:00 Atenolol (Tenormin) 50 mg DAILY PO Last administered on 04/24/16 11:10; Admin Dose 50 MG; Start 04/23/16 at 10:00 Atorvastatin Calcium (Lipitor) 20 mg QHS PO Last administered on 04/26/16 22: 02; Admin Dose 20 MG; Start 04/23/16 at 21:00 Docusate Calcium (Surfak) 240 mg BID PO Last administered on 04/26/16 22:02; Admin Dose 240 MG; Start 04/23/16 at 10:30 Furosemide (Lasix) 20 mg DAILY PO Last administered on 04/26/16 09:40; Admin Dose 20 MG; Start 04/23/16 at 10:00 Topiramate (Topamax) 25 mg BID PO Last administered on 04/26/16 22:02; Admin Dose 25 MG; Start 04/24/16 at 14:30 Apixaban (Eliquis) 2.5 mg BID PO Last administered on 04/26/16 22:04; Admin Dose 2.5 MG; Start 04/24/16 at 13:30 Oxycodone/ Acetaminophen (Percocet (5/ 325)) 2 tab Q6 PRN PO pain Last administered on 04/26/16 03:49; Admin Dose 2 TAB; Start 04/24/16 at 21:30 Famotidine (Pepcid) 20 mg BID PO Last administered on 04/26/16 22:02; Admin Dose 20 MG; Start 04/24/16 at 21:30 Ondansetron HCl (Zofran Tab) 4 mg Q6H PRN PO NAUSEA AND/OR VOMITING Last administered on 04/25/16 15:46; Admin Dose 4 MG; Start 04/25/16 at 08:00 Ferrous Gluconate (Fergon) 325 mg BID PO Last administered on 04/26/16 22:01; Admin Dose 325 MG; Start 04/25/16 at 09:00; Stop 05/25/16 at 08:59 Losartan Potassium (Cozaar) 100 mg DAILY PO Last administered on 04/26/16 09: 38; Admin Dose 100 MG; Start 04/25/16 at 09:00 Sumatriptan Succinate (Imitrex) 50 mg Q12 PRN PO HEADACHE Last administered on 04/25/16 21:04; Admin Dose 50 MG; Start 2/26/17 at 19:00 Lorazepam 1 mg 1 mg Q8H PRN PO ANXIETY Last administered on 04/26/16 04:10; Admin Dose 1 MG; Start 04/26/16 at 04:30 Sodium Chloride (NS) 1,000 ml @ 75 mls/hr [id number] IV Last administered on 04/26 13:30; Admin Dose 75 MLS/HR; Start 04/26/16 at 10:30 Calcium Carbonate (Tums) 500 mg TID PRN PO HEARTBURN Last administered on 15:16; Admin Dose 500 MG; Start 04/26/16 at 15:00 PADMINI SCOTT MD Apr 26, 2016 22:12
[2016-04-27 05:30] LABS: ADD SCAN DIFF NO
[2016-04-27 05:38] LABS: BASOPHILS % 0.3 % (0.0-2.0); EOSINOPHILS # 0.1 10^3/ul (0.0-0.5); EOSINOPHILS % 1.4 % (0.0-7.0); HEMATOCRIT 32.8 % (42.0-52.0); HEMOGLOBIN 10.4 g/dl (14.0-18.0); LYMPHOCYTES # 2.2 10^3/ul (0.8-2.9); LYMPHOCYTES % 30.5 % (15.0-51.0); MEAN CORPUSCULAR HEMOGLOBIN 25.5 pg (29.0-33.0); MEAN CORPUSCULAR HGB CONC 31.7 g/dl (32.0-37.0); MEAN CORPUSCULAR VOLUME 80.4 fl (82.0-101.0); MEAN PLATELET VOLUME 9.8 fl (7.4-10.4); MONOCYTE # 0.7 10^3/ul (0.3-0.9); MONOCYTES % 9.3 % (0.0-11.0); NEUTROPHIL # 4.3 10^3/ul (1.6-7.5); NEUTROPHILS % 58.2 % (39.0-77.0); PLATELET COUNT 235 10^3/UL (140-415); RED BLOOD COUNT 4.08 10^6/ul (4.70-6.10); RED CELL DISTRIBUTION WIDTH 18.1 % (11.5-14.5); WHITE BLOOD COUNT 7.3 10^3/ul (4.8-10.8)
[2016-04-27 06:06] LABS: POTASSIUM 3.7 mmol/L (3.5-5.1)
[2016-04-27 06:09] LABS: CREATININE 1.54 mg/dl (0.61-1.24)
[2016-04-27 06:10] LABS: CALCIUM 8.9 mg/dl (8.4-10.2)
[2016-04-27 07:22] VITALS: BP 166/73; RESP 20
[2016-04-27] MEDS: FERROUS GLUCONATE (EC) 325 MG TAB PO SCH ×2 (08:28→21:25)
[2016-04-27] MEDS: FAMOTIDINE 20 MG TAB PO SCH ×2 (08:28→21:25)
[2016-04-27] MEDS: DOCUSATE CALCIUM 240 MG CAP PO SCH ×2 (08:28→21:25)
[2016-04-27] MEDS: TOPIRAMATE 25 MG TAB PO SCH ×2 (08:28→21:25)
[2016-04-27] MEDS: ATENOLOL 50 MG TAB PO SCH (08:30)
[2016-04-27] MEDS: FUROSEMIDE 20 MG TAB PO SCH (08:30)
[2016-04-27] MEDS: APIXABAN 5 MG TABLET PO SCH ×2 (08:31→21:25)
[2016-04-27] MEDS: LOSARTAN 50 MG TAB PO SCH (08:31)
[2016-04-27] MEDS: SUMATRIPTAN 50 MG TAB PO PRN (09:04)
--- NOTE | 2016-04-27 09:33 | PN ---
Date/Time of Note Date/Time of Note DATE: 04/27/16 TIME: 09:31 Assessment/Plan VTE Prophylaxis VTE Prophylaxis Intervention: other (Eliquis) Lines/Catheters IV [facility] Type (from [facility]): Peripheral IV Urinary Cath still in place: No Assessment/Plan Chief Complaint/Hosp Course Assessment/Plan Problems: (1) Iron deficiency anemia, unspecified Status: Chronic Comment: Patient is known about this from before. Is quite possible the iron sulfate is adding to his nausea, was switched over to iron gluconate. He was scheduled to meet with a city recorder yesterday as outpt - this will have to be postponed by the pt; re-counseled that he should not let this go on completed as an outpatient workup (2) Migraine syndrome Status: Chronic - improving Comment: -continue triptan drug to control, as well as topiramate as the baseline blocking agent (3) Diastolic dysfunction Status: Chronic Comment: He is on beta-belkys for this (4) Dural sinus thrombosis Status: Acute Comment: Unclear if he has a hypercoagulable state based on the information at hand (although oer Heme/Onc it appears he probably has this) - for now he will continue Eliquis. (5) Thrombosis, superior sagittal sinus Status: Acute Comment: As above (6) Hyperlipidemia associated with type 2 diabetes mellitus Status: Chronic Comment: Statin therapy (7) Essential hypertension Status: Chronic Comment: Adequately controlled (8) Diabetes mellitus type 2 in obese Status: Chronic Comment: Adequately controlled 9. ARF - unclear source - continue IVF's Problems: Subjective 24 Hr Interval Summary Free Text/Dictation Still with + RUSSELL, but less in severity now. Exam/Review of Systems Vital Signs Vitals Vital Signs Date Time Temp Pulse Resp B/P Pulse Ox O2 Delivery O2 Flow Rate FiO2 04/27/16 07:22 98.8 58 20 166/73 98 04/23/16 20:30 Room Air Intake and Output 04/26/16 04/26/16 04/27/16 15:00 23:00 07:00 Intake Total 1260 ml 1000 ml Output Total 0 ml Balance 1260 ml 1000 ml Exam Constitutional: alert, oriented HEENT: PERRL, EOMI Neck: non-tender, supple Respiratory: clear to auscultation, normal air movement Cardiovascular: nl pulses, regular rate and rhythm Results Result Diagram: 04/27/16 0510 04/27/16 0510 Results 24 hrs Laboratory Tests Test 04/27/16 05:10 04/27/16 08:30 Anion Gap 16 Basophils # 0.0 Basophils % 0.3 Blood Urea Nitrogen 19 Calcium Level 8.9 Carbon Dioxide Level 24 Chloride Level 104 Creatinine 1.54 H Eosinophils # 0.1 Eosinophils % 1.4 Glucose Level 98 Hematocrit 32.8 L Hemoglobin 10.4 L Lymphocytes # 2.2 Lymphocytes % 30.5 Mean Corpuscular Hemoglobin 25.5 L Mean Corpuscular Hemoglobin Concent 31.7 L Mean Corpuscular Volume 80.4 L Mean Platelet Volume 9.8 Monocytes # 0.7 Monocytes % 9.3 Neutrophils # 4.3 Neutrophils % 58.2 Nucleated Red Blood Cells # 0.0 Nucleated Red Blood Cells % 0.0 Platelet Count 235 Potassium Level 3.7 Red Blood Count 4.08 L Red Cell Distribution Width 18.1 H Sodium Level 140 White Blood Count 7.3 Lab Scanned Report REFERENCE LAB Medications Medications Current Medications Nitroglycerin (Nitroglycerin (Sl Tab) 0.4 Mg) 1 tab Q5M PRN SL CHEST PAIN; Start 04/22/16 at 03:30 Acetaminophen (Tylenol Supp) 650 mg Q4H PRN [place] PAIN LEVEL 1-3 OR FEVER; Start 04/22/16 at 03:30 Morphine Sulfate (morphine) 2 mg Q4H PRN IV PAIN LEVEL 7-10 Last administered on 04/22/16 22:54; Admin Dose 2 MG; Start 04/22/16 at 03:30 Lorazepam (Ativan) 1 mg Q2H PRN IV ANXIETY; Start 04/22/16 at 03:30 Docusate Sodium (Colace) 100 mg Q12H PRN PO CONSTIPATION; Start 04/22/16 at 03: 30 Labetalol HCl (Labetalol) 10 mg Q10M PRN IV ELEVATED BLOOD PRESSURE Last administered on 04/22/16 20:09; Admin Dose 10 MG; Start 04/22/16 at 03:30 Acetaminophen (Tylenol Tab) 650 mg Q4H PRN PO TEMP GREATER THAN 99.6F Last administered on 04/25/16 15:43; Admin Dose 650 MG; Start 04/22/16 at 03:30 Methadone HCl (Methadone Liq) 45 mg DAILY PO Last administered on 04/26/16 09: 44; Admin Dose 45 MG; Start 04/23/16 at 13:00 Atenolol (Tenormin) 50 mg DAILY PO Last administered on 04/27/16 08:30; Admin Dose 50 MG; Start 04/23/16 at 10:00 Atorvastatin Calcium (Lipitor) 20 mg QHS PO Last administered on 04/26/16 22: 02; Admin Dose 20 MG; Start 04/23/16 at 21:00 Docusate Calcium (Surfak) 240 mg BID PO Last administered on 04/27/16 08:28; Admin Dose 240 MG; Start 04/23/16 at 10:30 Furosemide (Lasix) 20 mg DAILY PO Last administered on 04/27/16 08:30; Admin Dose 20 MG; Start 04/23/16 at 10:00 Topiramate (Topamax) 25 mg BID PO Last administered on 04/27/16 08:28; Admin Dose 25 MG; Start 04/24/16 at 14:30 Apixaban (Eliquis) 2.5 mg BID PO Last administered on 04/27/16 08:31; Admin Dose 2.5 MG; Start 04/24/16 at 13:30 Oxycodone/ Acetaminophen (Percocet (5/ 325)) 2 tab Q6 PRN PO pain Last administered on 04/26/16 03:49; Admin Dose 2 TAB; Start 04/24/16 at 21:30 Famotidine (Pepcid) 20 mg BID PO Last administered on 04/27/16 08:28; Admin Dose 20 MG; Start 04/24/16 at 21:30 Ondansetron HCl (Zofran Tab) 4 mg Q6H PRN PO NAUSEA AND/OR VOMITING Last administered on 04/25/16 15:46; Admin Dose 4 MG; Start 04/25/16 at 08:00 Ferrous Gluconate (Fergon) 325 mg BID PO Last administered on 04/27/16 08:28; Admin Dose 325 MG; Start 04/25/16 at 09:00; Stop 05/25/16 at 08:59 Losartan Potassium (Cozaar) 100 mg DAILY PO Last administered on 04/27/16 08: 31; Admin Dose 100 MG; Start 04/25/16 at 09:00 Sumatriptan Succinate (Imitrex) 50 mg Q12 PRN PO HEADACHE Last administered on 04/27/16 09:04; Admin Dose 50 MG; Start 04/25/16 at 19:00 Lorazepam 1 mg 1 mg Q8H PRN PO ANXIETY Last administered on 04/26/16 04:10; Admin Dose 1 MG; Start 04/26/16 at 04:30 Sodium Chloride (NS) 1,000 ml @ 75 mls/hr [id number] IV Last administered on 04/26 13:30; Admin Dose 75 MLS/HR; Start 04/26/16 at 10:30 Calcium Carbonate (Tums) 500 mg TID PRN PO HEARTBURN Last administered on 15:16; Admin Dose 500 MG; Start 04/26/16 at 15:00 KENDRICK ZALDIVAR Apr 27, 2016 09:33
[2016-04-27] MEDS: METHADONE (1 MG/ML 5 ML PO UD SYG) PO SCH (09:55)
[2016-04-27] MEDS: CALCIUM CARBONATE 500 MG CHEW TAB PO PRN (11:18)
[2016-04-27] MEDS ORDERED: AL HYDROX/MG HYDROX/SIMETH 30 ML CUP PO PRN (13:00)
[2016-04-27] MEDS: SOD CHLORIDE 0.9% 1,000 ML IV SCH (13:04)
--- NOTE | 2016-04-27 18:37 | CONS ---
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 CAT scan in the ER showed possible tentorial subdural hematomas and anticoagulation was stopped. His MRI also shows some tiny acute venous infarct on the right parasagittal area. MRI of the brain does not confirm presence of subdural hematoma, states that tentorium has a dural thickening and though a small amount of blood product cannot be excluded, but predominantly is dural thickening. Repeat CAT scan of the head- did not show bleeding The patient is followed by neurosurgeon, Dr. Corey as well. i think that pt can be continued on anticoagulation if all agree Unclear etiology of thrombosis, but pt clearly has hypercoagulable state with chronic sinus thrombosis hypercoagulable blood work has been ordered, result-P records from [facility] ANEMIA C/W ACD MONITOR CLOSELY OBSERVE FOR BLEEDING AND HEMOLYSIS STABLE Problems: Consultation Date/Type/Reason Admit Date/Time Apr 22, 2016 at 03:19 Initial Consult Date 04/23/16 [facility] Referring Provider: FEDERICO WIGGINS APPRAISER 24 HR Interval Summary Free Text/Dictation Still with + RUSSELL, but less in severity now. Exam/Review of Systems Vital Signs Vitals Vital Signs Date Time Temp Pulse Resp B/P Pulse Ox O2 Delivery O2 Flow Rate FiO2 04/27/16 07:22 98.8 58 20 166/73 98 04/23/16 20:30 Room Air Intake and Output 04/26/16 04/26/16 04/27/16 15:00 23:00 07:00 Intake Total 1260 ml 1000 ml Output Total 0 ml Balance 1260 ml 1000 ml Exam Exam Constitutional: alert, oriented HEENT: PERRL, EOMI Neck: non-tender, supple Respiratory: clear to auscultation, normal air movement Cardiovascular: nl pulses, regular rate and rhythm Results Result Diagram: 04/27/16 0510 04/27/16 0510 Results 24 hrs Laboratory Tests Test 04/27/16 05:10 04/27/16 08:30 Anion Gap 16 Basophils # 0.0 Basophils % 0.3 Blood Urea Nitrogen 19 Calcium Level 8.9 Carbon Dioxide Level 24 Chloride Level 104 Creatinine 1.54 H Eosinophils # 0.1 Eosinophils % 1.4 Glucose Level 98 Hematocrit 32.8 L Hemoglobin 10.4 L Lymphocytes # 2.2 Lymphocytes % 30.5 Mean Corpuscular Hemoglobin 25.5 L Mean Corpuscular Hemoglobin Concent 31.7 L Mean Corpuscular Volume 80.4 L Mean Platelet Volume 9.8 Monocytes # 0.7 Monocytes % 9.3 Neutrophils # 4.3 Neutrophils % 58.2 Nucleated Red Blood Cells # 0.0 Nucleated Red Blood Cells % 0.0 Platelet Count 235 Potassium Level 3.7 Red Blood Count 4.08 L Red Cell Distribution Width 18.1 H Sodium Level 140 White Blood Count 7.3 Lab Scanned Report REFERENCE LAB Medications Medications Current Medications Nitroglycerin (Nitroglycerin (Sl Tab) 0.4 Mg) 1 tab Q5M PRN SL CHEST PAIN; Start 04/22/16 at 03:30 Acetaminophen (Tylenol Supp) 650 mg Q4H PRN LA PAIN LEVEL 1-3 OR FEVER; Start 04/22/16 at 03:30 Morphine Sulfate (morphine) 2 mg Q4H PRN IV PAIN LEVEL 7-10 Last administered on 04/22/16 22:54; Admin Dose 2 MG; Start 04/22/16 at 03:30 Lorazepam (Ativan) 1 mg Q2H PRN IV ANXIETY; Start 04/22/16 at 03:30 Docusate Sodium (Colace) 100 mg Q12H PRN PO CONSTIPATION; Start 04/22/16 at 03: 30 Labetalol HCl (Labetalol) 10 mg Q10M PRN IV ELEVATED BLOOD PRESSURE Last administered on 04/22/16 20:09; Admin Dose 10 MG; Start 04/22/16 at 03:30 Acetaminophen (Tylenol Tab) 650 mg Q4H PRN PO TEMP GREATER THAN 99.6F Last administered on 04/25/16 15:43; Admin Dose 650 MG; Start 04/22/16 at 03:30 Methadone HCl (Methadone Liq) 45 mg DAILY PO Last administered on 04/27/16 09: 55; Admin Dose 45 MG; Start 04/23/16 at 13:00 Atenolol (Tenormin) 50 mg DAILY PO Last administered on 04/27/16 08:30; Admin Dose 50 MG; Start 04/23/16 at 10:00 Atorvastatin Calcium (Lipitor) 20 mg QHS PO Last administered on 04/26/16 22: 02; Admin Dose 20 MG; Start 04/23/16 at 21:00 Docusate Calcium (Surfak) 240 mg BID PO Last administered on 04/27/16 08:28; Admin Dose 240 MG; Start 04/23/16 at 10:30 Furosemide (Lasix) 20 mg DAILY PO Last administered on 04/27/16 08:30; Admin Dose 20 MG; Start 04/23/16 at 10:00 Topiramate (Topamax) 25 mg BID PO Last administered on 04/27/16 08:28; Admin Dose 25 MG; Start 04/24/16 at 14:30 Apixaban (Eliquis) 2.5 mg BID PO Last administered on 04/27/16 08:31; Admin Dose 2.5 MG; Start 04/24/16 at 13:30 Oxycodone/ Acetaminophen (Percocet (5/ 325)) 2 tab Q6 PRN PO pain Last administered on 04/26/16 03:49; Admin Dose 2 TAB; Start 04/24/16 at 21:30 Famotidine (Pepcid) 20 mg BID PO Last administered on 04/27/16 08:28; Admin Dose 20 MG; Start 04/24/16 at 21:30 Ondansetron HCl (Zofran Tab) 4 mg Q6H PRN PO NAUSEA AND/OR VOMITING Last administered on 04/25/16 15:46; Admin Dose 4 MG; Start 04/25/16 at 08:00 Ferrous Gluconate (Fergon) 325 mg BID PO Last administered on 04/27/16 08:28; Admin Dose 325 MG; Start 04/25/16 at 09:00; Stop 05/25/16 at 08:59 Losartan Potassium (Cozaar) 100 mg DAILY PO Last administered on 04/27/16 08: 31; Admin Dose 100 MG; Start 04/25/16 at 09:00 Sumatriptan Succinate (Imitrex) 50 mg Q12 PRN PO HEADACHE Last administered on 04/27/16 09:04; Admin Dose 50 MG; Start 04/25/16 at 19:00 Lorazepam 1 mg 1 mg Q8H PRN PO ANXIETY Last administered on 04/26/16 04:10; Admin Dose 1 MG; Start 04/26/16 at 04:30 Sodium Chloride (NS) 1,000 ml @ 75 mls/hr [id number] IV Last administered on 04/27 13:04; Admin Dose 75 MLS/HR; Start 04/26/16 at 10:30 Calcium Carbonate (Tums) 500 mg TID PRN PO HEARTBURN Last administered on 11:18; Admin Dose 500 MG; Start 04/26/16 at 15:00 Al Hydrox/Mg Hydrox/Simethicone (Mag-Al Plus) 30 ml Q6H PRN PO GASTROINTESTINAL UPSET Last administered on 04/27/16 13:04; Admin Dose 30 ML; Start 04/27/16 at 13:00 PADMINI SCOTT MD Apr 27, 2016 18:37
--- NOTE | 2016-04-27 19:06 | CONS ---
Date/Time of Note Date/Time of Note DATE: 04/27/16 TIME: 19:04 Consult Date/Type/Reason Admit Date/Time Apr 22, 2016 at 03:19 Initial Consult Date 04/22/16 Type of Consultation: neurology Ordering Provider: FEDERICO WIGGINS NP Subjective no acute events, headache on-off tolerable Objective Vital Signs Date Time Temp Pulse Resp B/P Pulse Ox O2 Delivery O2 Flow Rate FiO2 04/27/16 07:22 98.8 58 20 166/73 98 04/23/16 20:30 Room Air Intake and Output 04/26/16 04/26/16 04/27/16 15:00 23:00 07:00 Intake Total 1260 ml 1000 ml Output Total 0 ml Balance 1260 ml 1000 ml Results/Medications Result Diagram: 04/27/16 0510 04/27/16 0510 Results 24 hrs Laboratory Tests Test 04/27/16 05:10 04/27/16 08:30 Anion Gap 16 Basophils # 0.0 Basophils % 0.3 Blood Urea Nitrogen 19 Calcium Level 8.9 Carbon Dioxide Level 24 Chloride Level 104 Creatinine 1.54 H Eosinophils # 0.1 Eosinophils % 1.4 Glucose Level 98 Hematocrit 32.8 L Hemoglobin 10.4 L Lymphocytes # 2.2 Lymphocytes % 30.5 Mean Corpuscular Hemoglobin 25.5 L Mean Corpuscular Hemoglobin Concent 31.7 L Mean Corpuscular Volume 80.4 L Mean Platelet Volume 9.8 Monocytes # 0.7 Monocytes % 9.3 Neutrophils # 4.3 Neutrophils % 58.2 Nucleated Red Blood Cells # 0.0 Nucleated Red Blood Cells % 0.0 Platelet Count 235 Potassium Level 3.7 Red Blood Count 4.08 L Red Cell Distribution Width 18.1 H Sodium Level 140 White Blood Count 7.3 Lab Scanned Report REFERENCE LAB Medications Current Medications Nitroglycerin (Nitroglycerin (Sl Tab) 0.4 Mg) 1 tab Q5M PRN SL CHEST PAIN; Start 04/22/16 at 03:30 Acetaminophen (Tylenol Supp) 650 mg Q4H PRN [place] PAIN LEVEL 1-3 OR FEVER; Start 04/22/16 at 03:30 Morphine Sulfate (morphine) 2 mg Q4H PRN IV PAIN LEVEL 7-10 Last administered on 04/22/16t 22:54; Admin Dose 2 MG; Start 04/22/16 at 03:30 Lorazepam (Ativan) 1 mg Q2H PRN IV ANXIETY; Start 04/22/16 at 03:30 Docusate Sodium (Colace) 100 mg Q12H PRN PO CONSTIPATION; Start 04/22/16 at 03: 30 Labetalol HCl (Labetalol) 10 mg Q10M PRN IV ELEVATED BLOOD PRESSURE Last administered on 04/22/16 20:09; Admin Dose 10 MG; Start 04/22/16 at 03:30 Acetaminophen (Tylenol Tab) 650 mg Q4H PRN PO TEMP GREATER THAN 99.6F Last administered on 04/25/16 15:43; Admin Dose 650 MG; Start 04/22/16 at 03:30 Methadone HCl (Methadone Liq) 45 mg DAILY PO Last administered on 04/27/16 09: 55; Admin Dose 45 MG; Start 04/23/16 at 13:00 Atenolol (Tenormin) 50 mg DAILY PO Last administered on 04/27/16 08:30; Admin Dose 50 MG; Start 04/23/16 at 10:00 Atorvastatin Calcium (Lipitor) 20 mg QHS PO Last administered on 04/26/16 22: 02; Admin Dose 20 MG; Start 04/23/16 at 21:00 Docusate Calcium (Surfak) 240 mg BID PO Last administered on 04/27/16 08:28; Admin Dose 240 MG; Start 04/23/16 at 10:30 Furosemide (Lasix) 20 mg DAILY PO Last administered on 04/27/16 08:30; Admin Dose 20 MG; Start 04/23/16 at 10:00 Topiramate (Topamax) 25 mg BID PO Last administered on 04/27/16 08:28; Admin Dose 25 MG; Start 04/24/16 at 14:30 Apixaban (Eliquis) 2.5 mg BID PO Last administered on 04/27/16 08:31; Admin Dose 2.5 MG; Start 04/24/16 at 13:30 Oxycodone/ Acetaminophen (Percocet (5/ 325)) 2 tab Q6 PRN PO pain Last administered on 04/26/16 03:49; Admin Dose 2 TAB; Start 04/24/16 at 21:30 Famotidine (Pepcid) 20 mg BID PO Last administered on 04/27/16 08:28; Admin Dose 20 MG; Start 04/24/16 at 21:30 Ondansetron HCl (Zofran Tab) 4 mg Q6H PRN PO NAUSEA AND/OR VOMITING Last administered on 04/25/16 15:46; Admin Dose 4 MG; Start 04/25/16 at 08:00 Ferrous Gluconate (Fergon) 325 mg BID PO Last administered on 04/27/16 08:28; Admin Dose 325 MG; Start 04/25/16 at 09:00; Stop 05/25/16 at 08:59 Losartan Potassium (Cozaar) 100 mg DAILY PO Last administered on 04/27/16 08: 31; Admin Dose 100 MG; Start 04/25/16 at 09:00 Sumatriptan Succinate (Imitrex) 50 mg Q12 PRN PO HEADACHE Last administered on 04/27/16 09:04; Admin Dose 50 MG; Start 04/25/16 at 19:00 Lorazepam 1 mg 1 mg Q8H PRN PO ANXIETY Last administered on 04/26/16 04:10; Admin Dose 1 MG; Start 04/26/16 at 04:30 Sodium Chloride (NS) 1,000 ml @ 75 mls/hr [id number] IV Last administered on 04/27 13:04; Admin Dose 75 MLS/HR; Start 04/26/16 at 10:30 Calcium Carbonate (Tums) 500 mg TID PRN PO HEARTBURN Last administered on 11:18; Admin Dose 500 MG; Start 04/26/16 at 15:00 Al Hydrox/Mg Hydrox/Simethicone (Mag-Al Plus) 30 ml Q6H PRN PO GASTROINTESTINAL UPSET Last administered on 04/27/16 13:04; Admin Dose 30 ML; Start 04/27/16 at 13:00 Assessment/Plan Chief Complaint/Hosp Course PHYSICAL EXAMINATION: GENERAL: Not in acute distress, lying in bed. HEENT: Normocephalic, atraumatic head. NECK: No carotid bruits. No thyromegaly. LUNGS: Clear to auscultation bilaterally. CARDIAC: Normal cardiac rhythm and sounds. ABDOMEN: Soft, nontender. EXTREMITIES: No cyanosis, clubbing or edema. NEUROLOGIC: He is awake , oriented x3. He has fluent speech. Cranial nerve examination shows intact visual forman to visual threat bilaterally. Pupils sluggish from about 2 mm bilaterally. Extraocular movements intact without nystagmus. Symmetrical face. Preserved facial strength and sensation. Corneal reflexes present bilaterally. Tongue is in midline. Motor strength seems to be preserved in all extremities. Normal bulk and tone. Sensory examination grossly intact to light touch and pain. Deep tendon reflexes 2+ upper extremities, absent in lower extremities. Downgoing toes bilaterally. Coordination seems to be preserved on [id number] testing. No dysmetria or tremor. Gait was not assessed. IMPRESSION: Chronic headaches, worsening in the last 1-2 weeks. Pt states that headaches x 5 years, at least 2-3 a week. Chronic venous sinus thrombosis, on anticoagulation x 3 years, does not know if have predisposition for bloot clots , no other clots in hx. Questionable blood along tentorium, predominantly dural thickening on MRI. Small venous infarct. Restarted on anticoagulation now , per hem/onc suggestion. Headache treatment. Unclear etiology of thrombosis, if hypercoagulable state, than patient probably has to continue anticoagulation indefinitely. Hypercoagulable blood work pending , also get records from [place]. It's OK to continue anticoagulation, but not clear if he needs one and for how long, if not in hypercoagulable state. OK for d/c. F/u with primary neurologist Dr. Garcia Problems: ONDINA GAGE MD Apr 27, 2016 19:06
[2016-04-27 19:48] VITALS: BP 138/64; RESP 18
[2016-04-27] MEDS: ATORVASTATIN 20 MG TAB PO SCH (21:25)
[2016-04-27] MEDS: OXYCODONE/ACETAMINOPHEN (5/325) TAB PO PRN (21:30)
[2016-04-28] MEDS: SOD CHLORIDE 0.9% 1,000 ML IV SCH ×2 (02:30→02:44)
[2016-04-28 05:42] LABS: ADD SCAN DIFF NO
[2016-04-28 05:59] LABS: BASOPHILS % 0.3 % (0.0-2.0); EOSINOPHILS # 0.1 10^3/ul (0.0-0.5); EOSINOPHILS % 1.7 % (0.0-7.0); HEMOGLOBIN 10.2 g/dl (14.0-18.0); LYMPHOCYTES # 2.3 10^3/ul (0.8-2.9); LYMPHOCYTES % 35.1 % (15.0-51.0); MEAN CORPUSCULAR HEMOGLOBIN 25.1 pg (29.0-33.0); MEAN CORPUSCULAR HGB CONC 30.9 g/dl (32.0-37.0); MEAN CORPUSCULAR VOLUME 81.1 fl (82.0-101.0); MEAN PLATELET VOLUME 10.2 fl (7.4-10.4); MONOCYTE # 0.6 10^3/ul (0.3-0.9); MONOCYTES % 9.2 % (0.0-11.0); NEUTROPHIL # 3.5 10^3/ul (1.6-7.5); NEUTROPHILS % 53.4 % (39.0-77.0); PLATELET COUNT 242 10^3/UL (140-415); RED BLOOD COUNT 4.07 10^6/ul (4.70-6.10); RED CELL DISTRIBUTION WIDTH 17.7 % (11.5-14.5); WHITE BLOOD COUNT 6.5 10^3/ul (4.8-10.8)
[2016-04-28 06:00] LABS: POTASSIUM 3.9 mmol/L (3.5-5.1)
[2016-04-28 06:02] LABS: CREATININE 1.36 mg/dl (0.61-1.24)
[2016-04-28 07:27] VITALS: BP 164/82; RESP 18
[2016-04-28] MEDS: LOSARTAN 50 MG TAB PO SCH (08:56)
[2016-04-28] MEDS: FUROSEMIDE 20 MG TAB PO SCH (08:56)
[2016-04-28] MEDS: APIXABAN 5 MG TABLET PO SCH (08:57)
[2016-04-28] MEDS: TOPIRAMATE 25 MG TAB PO SCH (08:58)
[2016-04-28] MEDS: ATENOLOL 50 MG TAB PO SCH (08:58)
[2016-04-28] MEDS: FERROUS GLUCONATE (EC) 325 MG TAB PO SCH (08:58)
[2016-04-28] MEDS: DOCUSATE CALCIUM 240 MG CAP PO SCH (08:58)
[2016-04-28] MEDS: FAMOTIDINE 20 MG TAB PO SCH (08:59)
--- NOTE | 2016-04-28 09:13 | PDOCDIS ---
Discharge Instructions CONDITION Patient Condition: Stable HOME CARE INSTRUCTIONS: Special Diet: Low cholesterol, low fat, 2GM NA ACTIVITY: Activity Restrictions: Slowly Increase Activity FOLLOW UP/APPOINTMENTS Appointments Take your medications as prescribed, see your doctor in clinic in 1 week. KENDRICK ZALDIVAR Apr 28, 2016 09:13
[2016-04-28] MEDS: METHADONE (1 MG/ML 5 ML PO UD SYG) PO SCH (09:22)
[2016-04-28] MEDS ORDERED: LOSA50TA6 PO (09:30)
[2016-04-28] MEDS ORDERED: UDMYL PO (09:30)
[2016-04-28] MEDS ORDERED: TOPI25TA38 PO (09:30)
[2016-04-28] MEDS ORDERED: APIX5TAB PO (09:30)
[2016-04-28] MEDS ORDERED: SUMA50TA11 PO (09:30)
--- NOTE | 2016-04-28 10:34 | DS ---
DATE OF ADMISSION: 04/22/2016 DATE OF DISCHARGE: 04/28/2016 HOSPITAL COURSE: This 65-year-old male originally admitted on 04/22/2016, being discharged home 02/2016. The patient came in with a history of a superior sagittal sinus thrombosis, who had recent ly been on Eliquis but he presented with a headache. Initially, admitted to the ICU with findings o n CT scan showing a tentorial subdural hematoma. He was evaluated by neurosurgery team who decided for conservative management at this time, no surgical intervention. He was also seen by neurology t radha, hematology/oncology team as well during this hospital stay. The patient's symptoms improved. He was put on sumatriptan and Topamax. He had not been taking the Topamax at home, which he had bee n prescribed before. Over the course of his hospital stay, his headache symptoms slowly improved. Initially, the anticoagulation was stopped because of possible tentorial subdural hematoma as mentmary ann barrett above; however, a repeat CT scan of the head did not show any bleeding and the patient was resta rted on the anticoagulation given his history of superior sagittal sinus thrombosis. It was thought that patient may have a hypercoagulable state and he was evaluated by hematology/oncology for that. In any event, there was recommendation to continue anticoagulation as long as there is no bleeding . His hemoglobin was stable. He was able to ambulate and tolerate a p.o. diet. He had some mild r enal insufficiency on the 48 hours before discharge, which was resolving as well. The patient will be discharged home today in improved condition. DISCHARGE MEDICATIONS: He will be sent with the following medications: 1. Eliquis 2.5 mg b.i.d. 2. Mag-Al Plus suspension 30 mL q.6h. p.r.n. 3. Sumatriptan 50 mg p.o. q.12h. p.r.n. 4. Topamax 25 mg b.i.d. 5. Atenolol 50 mg daily. 6. Nifedipine XL 60 mg daily. 7. Atorvastatin 20 mg at bedtime. 8. Colace 240 mg p.o. b.i.d. 9. Ferrous sulfate 325 mg b.i.d. 10. Methadone 45 mg daily. 11. Zofran 4 mg q.6h. p.r.n. FOLLOWUP: He will need to follow up with outpatient primary care doctor in the clinic in the next 1 to 2 weeks. FINAL DIAGNOSES: 1. Headache secondary to combination of dural sinus thrombosis and migraine syndrome, now improving with sumatriptan and Topamax. 2. Superior sagittal sinus thrombosis, on anticoagulation. 3. High cholesterol. 4. Type 2 diabetes. 5. Essential hypertension. 6. Diastolic dysfunction which is chronic. He is on beta belkys for that. 7. Iron deficiency anemia, unspecified. 8. Acute renal insufficiency, resolved. Time spent discharging the patient 45 minutes. Dictated By: KENDRICK DUFF Conf#: [id number] DID#: [id number]
--- NOTE | 2016-04-28 20:20 | CONS ---
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 CAT scan in the ER showed possible tentorial subdural hematomas and anticoagulation was stopped. His MRI also shows some tiny acute venous infarct on the right parasagittal area. MRI of the brain does not confirm presence of subdural hematoma, states that tentorium has a dural thickening and though a small amount of blood product cannot be excluded, but predominantly is dural thickening. Repeat CAT scan of the head- did not show bleeding The patient is followed by neurosurgeon, Dr. Corey as well. i think that pt can be continued on anticoagulation if all agree Unclear etiology of thrombosis, but pt clearly has hypercoagulable state with chronic sinus thrombosis hypercoagulable blood work has been ordered, result-P records from [facility] C/W ACD MONITOR CLOSELY OBSERVE FOR BLEEDING AND HEMOLYSIS STABLE Problems: Consultation Date/Type/Reason Admit Date/Time Apr 22, 2016 at 03:19 Initial Consult Date 04/23/16 Type of Consultation: hemeonc Referring Provider: FEDERICO WIGGNIS NP 24 HR Interval Summary Free Text/Dictation all noted going home today Exam/Review of Systems Vital Signs Vitals Vital Signs Date Time Temp Pulse Resp B/P Pulse Ox O2 Delivery O2 Flow Rate FiO2 04/28/16 07:27 98.3 60 18 164/82 100 Intake and Output 04/27/16 04/27/16 04/28/16 15:00 23:00 07:00 Intake Total 400 ml 620 ml 1460 ml Balance 400 ml 620 ml 1460 ml Exam Constitutional: alert, oriented HEENT: PERRL, EOMI Neck: non-tender, supple Respiratory: clear to auscultation, normal air movement Cardiovascular: nl pulses, regular rate and rhythm Results Result Diagram: 04/28/16 0515 04/28/16 0529 Results 24 hrs Laboratory Tests Test 04/28/16 05:15 04/28/16 05:29 Basophils # 0.0 Basophils % 0.3 Eosinophils # 0.1 Eosinophils % 1.7 Hematocrit 33.0 L Hemoglobin 10.2 L Lymphocytes # 2.3 Lymphocytes % 35.1 Mean Corpuscular Hemoglobin 25.1 L Mean Corpuscular Hemoglobin Concent 30.9 L Mean Corpuscular Volume 81.1 L Mean Platelet Volume 10.2 Monocytes # 0.6 Monocytes % 9.2 Neutrophils # 3.5 Neutrophils % 53.4 Nucleated Red Blood Cells # 0.0 Nucleated Red Blood Cells % 0.0 Platelet Count 242 Red Blood Count 4.07 L Red Cell Distribution Width 17.7 H White Blood Count 6.5 Anion Gap 17 H Blood Urea Nitrogen 17 Calcium Level 9.0 Carbon Dioxide Level 23 Chloride Level 108 Creatinine 1.36 H Glucose Level 94 Potassium Level 3.9 Sodium Level 144 PADMINI SCOTT MD Apr 28, 2016 20:20
== END 2016-04-28 15:05 | disposition home or self-care (01) | DRG 85 ==
LOC: E/R 22:26 → MERGE 04-22 03:19 → ICU 04-22 03:19 → MS2 04-23 20:54
PROVIDERS: ADMIT Student in an Organized Health Care Education/Training Program; ATTEND Student in an Organized Health Care Education/Training Program
DX: S06.5X0A Traumatic subdural hemorrhage without loss of consciousness, initial encounter (principal); G08 Intracranial and intraspinal phlebitis and thrombophlebitis; I50.33 Acute on chronic diastolic (congestive) heart failure; N17.9 Acute kidney failure, unspecified; D50.9 Iron deficiency anemia, unspecified; E11.9 Type 2 diabetes mellitus without complications; E78.5 Hyperlipidemia, unspecified; E66.9 Obesity, unspecified; I11.0 Hypertensive heart disease with heart failure; F17.200 Nicotine dependence, unspecified, uncomplicated; X58.XXXA Exposure to other specified factors, initial encounter; G43.909 Migraine, unspecified, not intractable, without status migrainosus; M54.9 Dorsalgia, unspecified; G89.29 Other chronic pain; Z68.37 Body mass index [BMI] 37.0-37.9, adult; Z79.01 Long term (current) use of anticoagulants
CPT/HCPCS: 36415; 70450; 70544; 70552; 80048; 80053; 80061; 82270; 82728; 82962; 83036; 83090; 83540; 83735; 83890; 84100; 84484; 85025; 85300; 85302; 85305; 85610; 85613; 85651; 85730; 86038; 87081; 92526; 92610; 96361; 96374; 96375; 97162; J1170; J2270; J2405; J2724; J7030; J7040

== ENCOUNTER 2016-08-24 05:20 | Emergency (ER) | payer OTHER ==
[~2016-08-24] VITALS: Ht 177.8 cm; Wt 122.0 kg
[~2016-08-24 05:20] MED LIST changes: +APIX5TAB PO; +ATEN50TA PO; -CIPR500T4 PO; +DOCU240C14 PO; -FURO20TA3 PO; -MECL-77 PO; +METH-417 PO; -METH10TA2 PO; -METR500T PO; +SUMA50TA11 PO; +TOPI25TA38 PO; +UDMYL PO
[2016-08-24 05:28] VITALS: Ht 177.8 cm; Wt 122.0 kg
[2016-08-24] MEDS ORDERED: ACETAMINOPHEN 500 MG TAB PO STA (06:12)
--- NOTE | 2016-08-24 07:57 | RADRPT ---
PROCEDURE: Ultrasound extremity non-vascular. CLINICAL INDICATION: Swelling. TECHNIQUE: Targeted sonographic evaluation of the area of clinical interest in the left thigh was performed using a high-frequency transducer using lu scale and color Doppler techniques. COMPARISON: None. FINDINGS: Targeted sonographic evaluation of the area of clinical concern demonstrates the left thigh region. Demonstrates diffuse subcutaneous edema. There is a heterogeneously hypoechoic structure identifie d without significant vascularity, measuring 2.2 x 1.3 cm. IMPRESSION: 1. Targeted sonographic evaluation of the area of clinical concern in the left thigh demonstrates a nonspecific rounded hypoechoic structure measuring up to 2.2 cm. This may represent an abscess in the appropriate clinical context. Recommend aspiration under sonographic guidance. There is surrou nding subcutaneous edema. RPTAT: EE .Girma Fan MD, Date Time Electronically viewed and signed by .Girma Fan MD, on 08/24/2016 08:01 .C/
--- NOTE | 2016-08-24 08:05 | ERD ---
ER Documentation Chief Complaint Date/Time DATE: 08/24/16 TIME: 08:00 Chief Complaint swelling /pain on left leg since 2 days ago with a lump on left thigh HPI This 65-year-old male who presents the emergency department today complaining of left thigh pain and swelling. 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 Denies any fevers or chills. ROS All systems reviewed and are negative except as per history of present illness. Medications Home Meds Active Scripts Acetaminophen* (Tylophen*) 500 Mg Capsule, 1 CAP PO Q6H Y for PAIN AND OR ELEVATED TEMP, #30 CAP Prov:LOUISA HUITRON PA-C 08/24/16 Clindamycin Hcl* (Clindamycin Hcl*) 300 Mg Capsule, 300 MG PO TID for 7 Days, CAP Prov:LOUISA HUITRON PA-C 08/24/16 Topiramate* (Topamax*) 25 Mg Tablet, 25 MG PO BID, #60 TAB 2 Refills Prov:KENDRICK ZALDIVAR S. 04/28/16 Sumatriptan Succinate* (Imitrex*) 50 Mg Tablet, 50 MG PO Q12 Y for HEADACHE, # 30 TAB 1 Refill Prov:KENDRICK ZALDIVAR S. 04/28/16 Magaldrate/Simethicone* (Mag-Al Plus Suspension*) 30 Ml Oral.susp, 30 ML PO Q6H Y for GASTROINTESTINAL UPSET, #30 Prov:KENDRICK ZALDIVAR S. 04/28/16 Apixaban* (Eliquis*) 5 Mg Tablet, 2.5 MG PO BID for 30 Days, TAB 2 Refills Prov:KENDRICK ZALDIVAR S. 04/28/16 Ferrous Sulfate* (Ferrous Sulfate*) 325 Mg Tabec, 325 MG PO BID for 30 Days, TAB Prov:FEDERICO WIGGINS NP 04/07/16 Ondansetron Hcl* (Zofran*) 4 Mg Tablet, 4 MG PO Q6H for NAUSEA AND/OR VOMITING, #15 TAB Prov:WILLIS PANTOJA MD 03/28/16 Reported Medications Docusate Calcium* (Docusate Calcium*) 240 Mg Capsule, 240 MG PO BID, CAP 04/22/16 Methadone Hcl* (Methadone*) 5 Mg Tab, 45 MG PO DAILY, TAB PER PT RECEIVES RX AT [facility] CALL [phone] ASK FOR MILAN 04/22/16 Atenolol* (Atenolol*) 50 Mg Tablet, 50 MG PO DAILY, #30 TAB 04/22/16 Apixaban* (Eliquis*) 2.5 Mg Tablet, 2.5 MG PO BID, TAB 04/03/16 Nifedipine* (Nifedical XL*) 60 Mg/Bottle Tab.osm.24, 60 MG PO DAILY, TAB 05/15/14 Atorvastatin Calcium* (Atorvastatin Calcium*) 20 Mg Tablet, 20 MG PO HS, TAB 05/15/14 Allergies Allergies: Coded Allergies: No Known Allergies (Verified Allergy, Mild, 08/24/16) PMhx/Soc History of Surgery: Yes (CHOLECYSTECTOMY) Anesthesia Reaction: No Hx Neurological Disorder: Yes (SDH, CVT) Hx Respiratory Disorders: No Hx Cardiac Disorders: Yes (htn) Hx Psychiatric Problems: No Hx Miscellaneous Medical Probl: Yes (dm, diverticulitis) Hx Alcohol Use: Yes Hx Substance Use: Yes Hx Tobacco Use: Yes Smoking Status: Current some day smoker Physical Exam Vitals Vital Signs Date Time Temp Pulse Resp B/P Pulse Ox O2 Delivery O2 Flow Rate FiO2 08/24/16 05:28 97.1 71 20 129/66 98 Physical Exam Const: Obese, no acute distress Head: Atraumatic Eyes: Normal Conjunctiva ENT: Normal External Ears, Nose and Mouth. Neck: Full range of motion..~ No meningismus. Resp: Clear to auscultation bilaterally Cardio: Regular rate and rhythm, no murmurs Abd: Soft, non tender, non distended. Normal bowel sounds Skin: No petechiae or rashes Ext: Left thigh with evidence of 2 areas of localized swelling over anterior aspect of the thigh. There is no erythema or warmth. No evidence of fluctuance. Patient has full active range of motion. Pulses 2+. Distal neurovascularly intact. Neur: Awake and alert Psych: Normal Mood and Affect Results 24 hrs Current Medications Medications (Trade) Dose Ordered Sig/Ash Route PRN Reason Start Time Stop Time Status Last Admin Dose Admin Acetaminophen (Tylenol Tab) 500 mg ONCE STAT PO 08/24/16 06:12 08/24/16 06:16 DC 08/24/16 06:42 DIAGNOSTIC IMAGING REPORT Patient: GARCIA WANG : 1950 Age: 65 Sex: M MR #: [id number] DOS: 08/24/16 0000 Ordering MD: LOUISA HUITRON PA-C Location: [facility] Room/Bed: PROCEDURE: Ultrasound extremity non-vascular. CLINICAL INDICATION: Swelling. TECHNIQUE: Targeted sonographic evaluation of the area of clinical interest in the left thigh was performed using a high-frequency transducer using lu scale and color Doppler techniques. COMPARISON: None. FINDINGS: Targeted sonographic evaluation of the area of clinical concern demonstrates the left thigh region. Demonstrates diffuse subcutaneous edema. There is a heterogeneously hypoechoic structure identified without significant vascularity , measuring 2.2 x 1.3 cm. IMPRESSION: 1. Targeted sonographic evaluation of the area of clinical concern in the left thigh demonstrates a nonspecific rounded hypoechoic structure measuring up to 2.2 cm. This may represent an abscess in the appropriate clinical context. Recommend aspiration under sonographic guidance. There is surrounding subcutaneous edema. RPTAT: EE .Girma Fan MD MD Date Time Electronically viewed and signed by .Girma Fan MD, MD on 08/24/2016 08:01 .C/ CC: LOUISA HUITRON PA-C Procedures/MDM This a 65-year-old male who presents the emergency department today for left thigh pain and swelling. On physical exam patient has evidence of 2 areas of localized defects on his left anterior thigh and therefore did obtain an ultrasound given patient's history of injecting himself with drugs. Per the radiology report ultrasound images show a targeted sonographic eval of nonspecific rounded hypoechoic structure measuring up to 2.2 cm. This may represent an abscess. There is surrounding subcutaneous edema. Patient is afebrile and otherwise well-appearing. There is no area of fluctuance and I do not feel the patient would benefit from incision and drainage at this time. Patient symptoms at this time may be related to abscess versus muscle deformity secondary to injection. Patient was given Tylenol here in the emergency department. He will be given a prescription for Tylenol for home. We will also give him a prescription for clindamycin. Patient was instructed to stop abusing drugs. At this time the patient is stable for discharge and outpatient management. Patient should follow up with their PCP in the next 1-2 days. They may return to the emergency department sooner for any persistent or worsening of symptoms. Patient understood and agreed with the plan. Dr. Pope has seen and evaluated the patient and he is in agreement with the plan. Departure Diagnosis: Primary Impression: Abscess Condition: Fair LOUISA HUITRON PA-C Aug 24, 2016 08:05
[2016-08-24] MEDS ORDERED: CLIN-73 PO (08:10)
[2016-08-24] MEDS ORDERED: ACET500C5 PO (08:11)
[2016-08-24 08:17] VITALS: BP 122/62; PULSE 68; RESP 19; TEMP 98.3
== END 2016-08-24 08:18 | disposition home or self-care (01) ==
LOC: FTE 05:20
DX: L02.416 Cutaneous abscess of left lower limb (principal); I10 Essential (primary) hypertension; E11.9 Type 2 diabetes mellitus without complications; F17.210 Nicotine dependence, cigarettes, uncomplicated; Z79.01 Long term (current) use of anticoagulants
CPT/HCPCS: 76536; Z7610

== ENCOUNTER 2016-09-15 01:39 | Emergency (ER) | payer OTHER ==
[~2016-09-15] VITALS: Ht 177.8 cm; Wt 120.0 kg
[~2016-09-15 01:39] MED LIST changes: +ACET500C5 PO; +CLIN-73 PO
[2016-09-15 01:44] VITALS: Ht 177.8 cm; Wt 120.0 kg
[2016-09-15] MEDS ORDERED: SOD CHLORIDE 0.9% 500 ML IV STA (03:03)
[2016-09-15 03:28] LABS: ADD SCAN DIFF NO
[2016-09-15 03:29] LABS: BASOPHILS % 0.2 % (0.0-2.0); EOSINOPHILS # 0.1 10^3/ul (0.0-0.5); EOSINOPHILS % 0.9 % (0.0-7.0); HEMATOCRIT 36.1 % (42.0-52.0); HEMOGLOBIN 11.5 g/dl (14.0-18.0); LYMPHOCYTES # 3.1 10^3/ul (0.8-2.9); LYMPHOCYTES % 25.6 % (15.0-51.0); MEAN CORPUSCULAR HEMOGLOBIN 27.8 pg (29.0-33.0); MEAN CORPUSCULAR HGB CONC 31.9 g/dl (32.0-37.0); MEAN CORPUSCULAR VOLUME 87.4 fl (82.0-101.0); MEAN PLATELET VOLUME 9.7 fl (7.4-10.4); MONOCYTE # 1.1 10^3/ul (0.3-0.9); MONOCYTES % 8.9 % (0.0-11.0); NEUTROPHIL # 7.7 10^3/ul (1.6-7.5); PLATELET COUNT 276 10^3/UL (140-415); RED BLOOD COUNT 4.13 10^6/ul (4.70-6.10); RED CELL DISTRIBUTION WIDTH 14.8 % (11.5-14.5); WHITE BLOOD COUNT 12.1 10^3/ul (4.8-10.8)
[2016-09-15 03:48] LABS: INR 1.06; PROTIME 13.8 Sec (12.2-14.2); PT RATIO 1.1
[2016-09-15 03:49] LABS: PARTIAL THROMBOPLASTIN TIME 32.4 Sec (25.0-35.0)
[2016-09-15 04:02] LABS: ANION GAP 19 (8-16); BLOOD UREA NITROGEN 24 mg/dl (7-20); CALCIUM 8.9 mg/dl (8.4-10.2); CARBON DIOXIDE 23 mmol/L (21-31); CHLORIDE 105 mmol/L (97-110); CREATININE 2.21 mg/dl (0.61-1.24); GLUCOSE 142 mg/dl (70-220); POTASSIUM 3.4 mmol/L (3.5-5.1); SODIUM 144 mmol/L (135-144)
[2016-09-15 04:17] LABS: TROPONIN-I < 0.012 ng/ml (0.00-0.12)
--- NOTE | 2016-09-15 04:46 | RADRPT ---
PROCEDURE: XR Chest. CLINICAL INDICATION: Headache. TECHNIQUE: AP Portable chest. COMPARISON: 04/03/2016 FINDINGS: There is mild cardiomegaly. The aorta is tortuous. The lungs are clear. The osseous structures ar e unremarkable. IMPRESSION: No acute findings. RPTAT: HIKT .Serafin Dela Cruz MD, MD Date Time Electronically viewed and signed by .Serafin Dela Cruz MD, MD on 09/15/2016 04:45 .T/
--- NOTE | 2016-09-15 04:54 | RADRPT ---
PROCEDURE: Noncontrast CT Head. CLINICAL INDICATION: Pain. TECHNIQUE: Noncontrast CT of the head was obtained. The administered radiation dose was CTDI vol = 45 mGy, DLP = 720 mGy-cm. COMPARISON: 01/16/2016 FINDINGS: The ventricles and sulci are within normal limits. There is no acute intracranial hemorrhage or ext ra-axial fluid collection. There is no mass effect. No midline shift is identified. There is no loss of lu-white differentiation to suggest acute infarction. Some hyperdensity along the superior sagittal and transverse sinuses is without change compared to t he prior. The orbits are within normal limits. The paranasal sinuses and mastoid air cells are without fluid. No destructive osseous lesion is identified. IMPRESSION: No acute findings. Unchanged densities along the dural venous sinuses compatible with chronic dural sinus thrombosis. RPTAT: HIKT .Serafin Dela Cruz MD, MD Date Time Electronically viewed and signed by .Serafin Dela Cruz MD, on 09/15/2016 04:54 .T/
--- NOTE | 2016-09-15 05:51 | ERD ---
ER Documentation Chief Complaint Date/Time DATE: 09/15/16 TIME: 05:49 Chief Complaint diziness x 1 day HPI 64-year-old male comes in once of dizziness for 1 day. Patient says he feels very "dizzy", with no focal neurological complaints. Just feels unstable on his feet. Patient has history of multiple previous visits to the hospital. No chest pain no nausea no vomiting no fevers no chills. No other current complaints. ROS All systems reviewed and are negative except as per history of present illness. Medications Home Meds Active Scripts Acetaminophen* (Tylophen*) 500 Mg Capsule, 1 CAP PO Q6H Y for PAIN AND OR ELEVATED TEMP, #30 CAP Prov:LOUISA HUITRON PA-C 08/24/16 Clindamycin Hcl* (Clindamycin Hcl*) 300 Mg Capsule, 300 MG PO TID for 7 Days, CAP Prov:LOUISA HUITRON PA-C 08/24/16 Topiramate* (Topamax*) 25 Mg Tablet, 25 MG PO BID, #60 TAB 2 Refills Prov:KENDRICK ZALDIVAR S. 04/28/16 Sumatriptan Succinate* (Imitrex*) 50 Mg Tablet, 50 MG PO Q12 Y for HEADACHE, # 30 TAB 1 Refill Prov:KENDRICK ZALDIVAR S. 04/28/16 Magaldrate/Simethicone* (Mag-Al Plus Suspension*) 30 Ml Oral.susp, 30 ML PO Q6H Y for GASTROINTESTINAL UPSET, #30 Prov:KENDRICK ZALDIVAR S. 04/28/16 Apixaban* (Eliquis*) 5 Mg Tablet, 2.5 MG PO BID for 30 Days, TAB 2 Refills Prov:KENDRICK ZALDIVAR S. 04/28/16 Ferrous Sulfate* (Ferrous Sulfate*) 325 Mg Tabec, 325 MG PO BID for 30 Days, TAB Prov:FEDERICO WIGGINS NP 04/07/16 Ondansetron Hcl* (Zofran*) 4 Mg Tablet, 4 MG PO Q6H for NAUSEA AND/OR VOMITING, #15 TAB Prov:WILLIS PANTOJA MD 03/28/16 Reported Medications Docusate Calcium* (Docusate Calcium*) 240 Mg Capsule, 240 MG PO BID, CAP 04/22/16 Methadone Hcl* (Methadone*) 5 Mg Tab, 45 MG PO DAILY, TAB PER PT RECEIVES RX AT [facility] CALL [phone] ASK FOR MILAN 04/22/16 Atenolol* (Atenolol*) 50 Mg Tablet, 50 MG PO DAILY, #30 TAB 04/22/16 Apixaban* (Eliquis*) 2.5 Mg Tablet, 2.5 MG PO BID, TAB 04/03/16 Nifedipine* (Nifedical XL*) 60 Mg/Bottle Tab.osm.24, 60 MG PO DAILY, TAB 05/15/14 Atorvastatin Calcium* (Atorvastatin Calcium*) 20 Mg Tablet, 20 MG PO HS, TAB 05/15/14 Allergies Allergies: Coded Allergies: No Known Allergies (Verified Allergy, Mild, 08/24/16) PMhx/Soc History of Surgery: Yes (CHOLECYSTECTOMY) Anesthesia Reaction: No Hx Neurological Disorder: Yes (SDH, CVT) Hx Respiratory Disorders: No Hx Cardiac Disorders: Yes (htn) Hx Psychiatric Problems: No Hx Miscellaneous Medical Probl: Yes (dm, diverticulitis) Hx Alcohol Use: Yes Hx Substance Use: Yes Hx Tobacco Use: Yes Smoking Status: Current some day smoker Physical Exam Vitals Vital Signs Date Time Temp Pulse Resp B/P Pulse Ox O2 Delivery O2 Flow Rate FiO2 09/15/16 01:44 97.8 76 20 156/75 100 Physical Exam Const: [] Head: Atraumatic Eyes: Normal Conjunctiva ENT: Normal External Ears, Nose and Mouth. Neck: Full range of motion..~ No meningismus. Resp: Clear to auscultation bilaterally Cardio: Regular rate and rhythm, no murmurs Abd: Soft, non tender, non distended. Normal bowel sounds Skin: No petechiae or rashes Back: No midline or flank tenderness Ext: No cyanosis, or edema Neur: Awake and alert Psych: Normal Mood and Affect Result Diagram: 09/15/1631709/15/16317 Results 24 hrs Laboratory Tests Test 09/15/16 03:18 White Blood Count 12.110^3/ul Red Blood Count 4.1310^6/ul Hemoglobin 11.5g/dl Hematocrit 36.1% Mean Corpuscular Volume 87.4fl Mean Corpuscular Hemoglobin 27.8pg Mean Corpuscular Hemoglobin Concent 31.9g/dl Red Cell Distribution Width 14.8% Platelet Count 47598^3/UL Mean Platelet Volume 9.7fl Neutrophils % 64.0% Lymphocytes % 25.6% Monocytes % 8.9% Eosinophils % 0.9% Basophils % 0.2% Nucleated Red Blood Cells % 0.0/100WBC Neutrophils # 7.710^3/ul Lymphocytes # 3.110^3/ul Monocytes # 1.110^3/ul Eosinophils # 0.110^3/ul Basophils # 0.010^3/ul Nucleated Red Blood Cells # 0.010^3/ul Prothrombin Time 13.8Sec Prothrombin Time Ratio 1.1 INR International Normalized Ratio 1.06 Activated Partial Thromboplast Time 32.4Sec Sodium Level 144mmol/L Potassium Level 3.4mmol/L Chloride Level 105mmol/L Carbon Dioxide Level 23mmol/L Anion Gap 19 Blood Urea Nitrogen 24mg/dl Creatinine 2.21mg/dl Glucose Level 142mg/dl Calcium Level 8.9mg/dl Troponin I < 0.012ng/ml Current Medications Medications (Trade) Dose Ordered Sig/Ash Route PRN Reason Start Time Stop Time Status Last Admin Dose Admin Sodium Chloride (NS) 500 ml @ 500 mls/hr Q1H STAT IV 09/15/16 03:03 09/15/16 04:02 DC 09/15/16 03:28 Procedures/MDM EKG: Rate/Rhythm: [Normal Sinus Rhythm] QRS, ST, T-waves: [No changes consistent w/ acute ischemia] Impression: [No evidence of ischemia or arrhythmia] Chest X-ray 1V Interpreted by me: Soft Tissue: No acute abnormalities Bones: No acute abnormalities Mediastinum/Cardiac Silhouette/Lungs: [No acute abnormalities] CT of head shows no acute abnormalities. Please see radiologist full dictation for report. Medical decision-makin-year-old gentleman with dizziness that is since resolved. At this point there is no focal issue for the patient. Workup was completely negative. At this point clinically stable for outpatient management. Told return for any return of symptoms. Departure Diagnosis: Primary Impression: Dizziness Condition: Stable CESARIO VALDES Sep 15, 2016 05:50
[2016-09-15] MEDS ORDERED: MECL12.574 PO (05:53)
[2016-09-15 06:12] VITALS: BP 145/66; PULSE 88; RESP 20; TEMP 98.6
== END 2016-09-15 06:16 | disposition home or self-care (01) ==
LOC: E/R 01:39
DX: R42 Dizziness and giddiness (principal); I10 Essential (primary) hypertension; E11.9 Type 2 diabetes mellitus without complications; F17.210 Nicotine dependence, cigarettes, uncomplicated; Z79.01 Long term (current) use of anticoagulants
CPT/HCPCS: 70450; 71010; 80048; 84484; 85025; 85610; 85730; 93005; J7040; 36415; 96360

== ENCOUNTER 2016-09-17 09:50 | Day surgery (SDC) | payer OTHER ==
[~2016-09-17] VITALS: Ht 175.3 cm; Wt 117.6 kg
[~2016-09-17 09:50] MED LIST changes: +MECL12.574 PO
[2016-09-17] MEDS ORDERED: DOCU-159 PO (10:23)
[2016-09-17 10:35] VITALS: Ht 175.3 cm; Wt 117.6 kg
[2016-09-17 11:05] VITALS: BP 123/68; PULSE 62; RESP 12
[2016-09-17] MEDS ORDERED: LIDOCAINE 2% (SDV) 5 ML INJ ONE (11:11)
[2016-09-17] MEDS ORDERED: MIDAZOLAM 1 MG/ML 2 ML INJ ONE (11:11)
[2016-09-17] MEDS ORDERED: FENTAnyl 50 MCG/ML VIAL ONE (11:11)
[2016-09-17] MEDS ORDERED: PROPOFOL 20 ML ONE (11:11)
[2016-09-17] MEDS ORDERED: PHENYLephrine (100 MCG/ML) 5ML SYG ONE (11:11)
[2016-09-17 12:16] VITALS: BP 136/83; PULSE 66; RESP 12
--- NOTE | 2016-09-18 09:48 | GILP ---
DATE OF PROCEDURE: 09/17/2016 PREOPERATIVE DIAGNOSIS: The patient is presenting with a history of abdominal pain and chronic heartburn, rule out peptic ulcer disease and gastroesophageal reflux disease. POSTOPERATIVE DIAGNOSES: Multiple erosions noted in the distal esophagus. A small hiatal hernia noted. Nodularity of the gastric fundus was noted. Diffuse mild erythema noted. Duodenum normal. DESCRIPTION OF PROCEDURE: After the informed written consent is obtained the patient was asked to to lay on the left lateral side. The patient was given intravenous anesthesia by Anesthesia with Dr. Johnson. When the patient became somnolent an Olympus video upper endoscope was introduced into the oropharynx and then into the esophagus. Multiple linear erosions were noted with erythema in the distal esophagus just above the GE junction. A small hiatal hernia was noted. The scope at this time was advanced into the stomach. Nodularity of the gastric fundus was noted with no ulcers, no neoplasm. Erythema noted in the antrum of the stomach. The duodenum appeared normal up to the end of the 3rd portion. The scope at this time was withdrawn. After taking biopsies from the antrum, lesser curvature of the fundus, then the fundus independently and then the esophagus independently the procedure was terminated. PLAN: Recommend PPI to be continued. If not the patient should have a PPI 1 b.i.d. for 3 months. Dictated By: Bob Vasquez MD /tori/rad /Document#: [id number] CC: Bob Vasquez MD; Miles Bailey MD;*End*
--- NOTE | 2016-09-21 08:10 | GILP ---
DATE OF PROCEDURE: 09/17/2016 PROCEDURE PERFORMED: Colonoscopy. PREOPERATIVE DIAGNOSIS: The patient presenting with history of irregular bowel movements, abdominal discomfort, rule out colorectal neoplasm. POSTOPERATIVE DIAGNOSES: 1. Two polyps noted at 10 cm from the anus. This was removed with cold biopsy forceps. 2. Diverticulosis. 3. No hemorrhoids noted. DESCRIPTION OF PROCEDURE: After informed written consent is obtained, the patient was asked to lie on the left lateral side. Intravenous anesthesia was given by anesthesiologist Dr. Johnson. When the patient became somnolent, Olympus video colonoscope was introduced into the rectum. The scope was advanced all the way to the cecum. Diverticula were found to be scattered all along the colon with no evidence of diverticulitis, no evidence of neoplasm. Scope was advanced to the cecum. Cecum and ascending colon showed evidence of a lot of liquid and greenish stool, which is adherent to the mucosa, could not be completely irrigated and removed. On the way out, no additional abnormalities detected and the procedure was terminated. PLAN: Recommend waiting for the pathology report of the colon polyp. Dictated By: Bob Vasquez MD /tori/iman /Document#: [id number]
== END 2016-09-17 17:48 | disposition home or self-care (01) ==
LOC: GIL 09:50
PROVIDERS: ATTEND Internal Medicine Gastroenterology
DX: Z12.11 Encounter for screening for malignant neoplasm of colon (principal); K21.0 Gastro-esophageal reflux disease with esophagitis; K57.90 Diverticulosis of intestine, part unspecified, without perforation or abscess without bleeding; K63.5 Polyp of colon; K44.9 Diaphragmatic hernia without obstruction or gangrene; I10 Essential (primary) hypertension; E11.9 Type 2 diabetes mellitus without complications; E78.5 Hyperlipidemia, unspecified; I50.9 Heart failure, unspecified
CPT/HCPCS: 43239; 45380; 82962; 88305; 88312; 88313; J2250; J2370; J3010; Z7610

== ENCOUNTER 2016-12-02 09:33 | Emergency (ER) | payer OTHER ==
[~2016-12-02] VITALS: Ht 175.3 cm; Wt 124.0 kg
[~2016-12-02 09:33] MED LIST changes: -ACET500C5 PO; -APIX2.5T PO; -APIX5TAB PO; -CLIN-73 PO; +DOCU-159 PO; -ONDA4TAB8 PO; -TOPI25TA38 PO; +TOPI25TA51 PO; -UDMYL PO
[2016-12-02 09:46] VITALS: Ht 175.3 cm; Wt 124.0 kg
[2016-12-02] MEDS ORDERED: SOD CHLORIDE 0.9% 1,000 ML IV STA (10:09)
[2016-12-02] MEDS ORDERED: ONDANSETRON 4 MG INJ IV STA (10:09)
[2016-12-02] MEDS ORDERED: morphine 4 MG/ML VIAL IV STA (10:09)
[2016-12-02] MEDS ORDERED: FAMOTIDINE 20 MG INJ IV STA (10:09)
[2016-12-02 10:46] LABS: BASOPHIL # 0.1 10^3/ul (0.0-0.1); BASOPHILS % 0.5 % (0.0-2.0); EOSINOPHILS # 0.3 10^3/ul (0.0-0.5); EOSINOPHILS % 2.8 % (0.0-7.0); HEMATOCRIT 37.8 % (42.0-52.0); HEMOGLOBIN 12.1 g/dl (14.0-18.0); LYMPHOCYTES # 2.4 10^3/ul (0.8-2.9); LYMPHOCYTES % 23.7 % (15.0-51.0); MEAN CORPUSCULAR HEMOGLOBIN 28.7 pg (29.0-33.0); MEAN CORPUSCULAR VOLUME 89.8 fl (82.0-101.0); MEAN PLATELET VOLUME 9.8 fl (7.4-10.4); MONOCYTE # 0.8 10^3/ul (0.3-0.9); MONOCYTES % 7.9 % (0.0-11.0); NEUTROPHIL # 6.6 10^3/ul (1.6-7.5); NEUTROPHILS % 64.7 % (39.0-77.0); PLATELET COUNT 262 10^3/UL (140-415); RED BLOOD COUNT 4.21 10^6/ul (4.70-6.10); WHITE BLOOD COUNT 10.2 10^3/ul (4.8-10.8)
[2016-12-02] MEDS ORDERED: LIDOCAINE/MYLANTA 40 ML BTL PO STA (10:53)
--- NOTE | 2016-12-02 11:10 | RADRPT ---
PROCEDURE: Chest x-ray CLINICAL INDICATION: Chest pain TECHNIQUE: Chest single view COMPARISON: 09/15/2016 FINDINGS: The heart is normal in size. The pulmonary vessels are normal in caliber. The lungs are clear. Th e costophrenic angles are sharp. The visualized bony thorax is unremarkable. IMPRESSION: No acute cardiopulmonary disease. RPTAT: HH .Po Clifford MD, Date Time Electronically viewed and signed by .Po Clifford MD, MD on 12/02/2016 11:10 .W/
[2016-12-02 11:16] LABS: ADD UMIC NO; UR ASCORBIC ACID 20 mg/dL (NEGATIVE); UR BILIRUBIN (Dip) NEGATIVE (NEGATIVE); UR BLOOD (Dip) NEGATIVE (NEGATIVE); UR CLARITY CLEAR (CLEAR); UR COLOR YELLOW (YELLOW); UR GLUCOSE (Dip) NEGATIVE (NEGATIVE); UR KETONES (Dip) NEGATIVE (NEGATIVE); UR LEUKOCYTE ESTERASE (Dip) NEGATIVE Leu/ul (NEGATIVE); UR NITRITE (Dip) NEGATIVE (NEGATIVE); UR SPECIFIC GRAVITY (Dip) 1.013 (1.003-1.030); UR TOTAL PROTEIN (Dip) NEGATIVE (NEGATIVE); UR UROBILINOGEN (Dip) NEGATIVE (NEGATIVE)
[2016-12-02 11:21] LABS: ALBUMIN 4.2 g/dl (3.3-4.9); ALBUMIN/GLOBULIN RATIO 1.1; BILIRUBIN,INDIRECT 0.6 mg/dl (0-1.1); BILIRUBIN,TOTAL 0.6 mg/dl (0.2-1.3); CALCIUM 8.8 mg/dl (8.4-10.2); CREATININE 1.2 mg/dl (0.61-1.24); POTASSIUM 3.6 mmol/L (3.5-5.1)
--- NOTE | 2016-12-02 11:30 | ERD ---
ER Documentation Chief Complaint Date/Time DATE: 12/02/16 TIME: 11:28 Chief Complaint upper epigastric pain x 3 days HPI This is a 66-year-old male with a history of gastritis who presents to the emergency room for evaluation of abdominal pain. The patient states that he has had abdominal pain for approximately 3 days duration and localizes abdominal pain to the midportion of the abdomen and describes as a burning sensation sometimes worse with food. Patient denies any radiation of his pain and denies any diaphoresis, shortness of breath, heart palpitations associated with this. ROS All systems reviewed and are negative except as per history of present illness. Medications Home Meds Reported Medications Docusate Sodium* (Docusate Sodium*) 100 Mg Capsule, 100 MG PO DAILY, #30 CAP 09/17/16 Methadone Hcl* (Methadone*) 5 Mg Tab, 45 MG PO DAILY, TAB PER PT RECEIVES RX AT [facility] CALL [phone] ASK FOR BLESSING 04/22/16 Atenolol* (Atenolol*) 50 Mg Tablet, 50 MG PO DAILY, #30 TAB 04/22/16 Nifedipine* (Nifedical XL*) 60 Mg/Bottle Tab.osm.24, 60 MG PO DAILY, TAB 05/15/14 Atorvastatin Calcium* (Atorvastatin Calcium*) 20 Mg Tablet, 20 MG PO HS, TAB 05/15/14 Discontinued Reported Medications Docusate Calcium* (Docusate Calcium*) 240 Mg Capsule, 240 MG PO BID, CAP 04/22/16 Discontinued Scripts Meclizine Hcl* (Antivert*) 12.5 Mg Tab, 12.5 MG PO Q6H Y for DIZZINESS, #20 TAB Prov:CESARIO VALDES. 09/15/16 Topiramate* (Topamax*) 25 Mg Tablet, 25 MG PO BID, #60 TAB 2 Refills Prov:RAELSY KESSLEREEP S. 04/28/16 Sumatriptan Succinate* (Imitrex*) 50 Mg Tablet, 50 MG PO Q12 Y for HEADACHE, # 30 TAB 1 Refill Prov:RAVICTORIAKENDRICK S. 04/28/16 Ferrous Sulfate* (Ferrous Sulfate*) 325 Mg Tabec, 325 MG PO BID for 30 Days, TAB Prov:FEDERICO WIGGINS DIRECTOR OF STRATEGY & MOBILE 04/07/16 Allergies Allergies: Coded Allergies: No Known Allergies (Verified Allergy, Mild, 12/02/16) PMhx/Soc History of Surgery: Yes (CHOLECYSTECTOMY) Anesthesia Reaction: No Hx Neurological Disorder: No Hx Respiratory Disorders: Yes (BRONCHITIS) Hx Cardiac Disorders: Yes (HTN, CHF, BLOOD CLOT) Hx Psychiatric Problems: Yes (MILD ANXIETY AND DEPRESSION) Hx Miscellaneous Medical Probl: No Hx Alcohol Use: No Hx Substance Use: No Hx Tobacco Use: Yes Smoking Status: Current every day smoker Physical Exam Vitals Vital Signs Date Time Temp Pulse Resp B/P Pulse Ox O2 Delivery O2 Flow Rate FiO2 12/02/16 09:46 98.3 60 18 159/74 96 Physical Exam INITIAL VITAL SIGNS: Reviewed by me GENERAL: The patient is well developed and appropriate for usual state of health in no apparent distress HEENT: Pupils equal, round, and reactive to light. EOMI. There is no scleral icterus. NECK: C-spine is soft and supple, there is no meningismus. There is no cervical lymphadenopathy. LUNGS: Clear to auscultation bilaterally. There are no rales, wheezes or rhonchi. HEART: Regular rate and rhythm, no murmurs, clicks, rubs or gallops. ABDOMEN: Gastric tenderness to palpation, negative Menjivar sign, otherwise soft, non-tender, non-distended. There are bowel sounds in all four quadrants. No rebound or guarding. EXTREMITIES: There is no peripheral cyanosis or edema. No focal swelling or erythema. NEUROLOGICAL: The patient moves all four extremities with 5/5 strength. Cranial nerves II - XII are intact. Normal gait. Alert and oriented SKIN: There is no apparent rash or petechiae. HEME/LYMPHATIC: There is no evidence of excessive bruising or lymphedema. PSYCHIATRIC: The patient does not appear anxious or depressed. Result Diagram: 12/02/16 1030 12/02/16 1030 Results 24 hrs Laboratory Tests Test 12/02/16 10:30 White Blood Count 10.210^3/ul Red Blood Count 4.2110^6/ul Hemoglobin 12.1g/dl Hematocrit 37.8% Mean Corpuscular Volume 89.8fl Mean Corpuscular Hemoglobin 28.7pg Mean Corpuscular Hemoglobin Concent 32.0g/dl Red Cell Distribution Width 15.0% Platelet Count 34457^3/UL Mean Platelet Volume 9.8fl Neutrophils % 64.7% Lymphocytes % 23.7% Monocytes % 7.9% Eosinophils % 2.8% Basophils % 0.5% Nucleated Red Blood Cells % 0.0/100WBC Neutrophils # 6.610^3/ul Lymphocytes # 2.410^3/ul Monocytes # 0.810^3/ul Eosinophils # 0.310^3/ul Basophils # 0.110^3/ul Nucleated Red Blood Cells # 0.010^3/ul Urine Color YELLOW Urine Clarity CLEAR Urine pH 8.0 Urine Specific [place] 1.013 Urine Ketones NEGATIVEmg/dL Urine Nitrite NEGATIVEmg/dL Urine Bilirubin NEGATIVEmg/dL Urine Urobilinogen NEGATIVEmg/dL Urine Leukocyte Esterase NEGATIVELeu/ul Urine Hemoglobin NEGATIVEmg/dL Urine Glucose NEGATIVEmg/dL Urine Total Protein NEGATIVEmg/dl Sodium Level 142mmol/L Potassium Level 3.6mmol/L Chloride Level 103mmol/L Carbon Dioxide Level 31mmol/L Anion Gap 12 Blood Urea Nitrogen 12mg/dl Creatinine 1.20mg/dl Glucose Level 98mg/dl Calcium Level 8.8mg/dl Total Bilirubin 0.6mg/dl Direct Bilirubin 0.00mg/dl Indirect Bilirubin 0.6mg/dl Aspartate Amino Transf (AST/SGOT) 18IU/L Alanine Aminotransferase (ALT/SGPT) 21IU/L Alkaline Phosphatase 88IU/L Troponin I < 0.012ng/ml Total Protein 8.0g/dl Albumin 4.2g/dl Globulin 3.80g/dl Albumin/Globulin Ratio 1.10 Lipase 24U/L Current Medications Medications (Trade) Dose Ordered Sig/Ash Route PRN Reason Start Time Stop Time Status Last Admin Dose Admin Sodium Chloride (NS) 1,000 ml @ 1,000 mls/hr Q1H STAT IV 12/02/16 10:12/02/16 11:08 DC 12/02/16 10:32 Morphine Sulfate (morphine) 4 mg ONCE STAT IV 12/02/16 10:12/02/16 10:10 DC 12/02/16 10:31 Ondansetron HCl (Zofran Inj) 4 mg ONCE STAT IV 12/02/16 10:09 12/02/16 10:10 DC 12/02/16 10:31 Famotidine (Pepcid Iv) 20 mg ONCE STAT IV 12/02/16 10:09 12/02/16 10:10 DC 12/02/16 10:31 Miscellaneous Medication (Gi Cocktail (2)) 40 ml ONCE STAT PO 12/02/16 10:53 12/02/16 10:54 DC 12/02/16 11:01 Procedures/MDM EKG: Rate/Rhythm: Sinus bradycardia QRS, ST, T-waves: [No changes consistent w/ acute ischemia] Impression: [No evidence of ischemia or arrhythmia] Chest X-ray 1V Interpreted by me: Soft Tissue: No acute abnormalities Bones: No acute abnormalities Mediastinum/Cardiac Silhouette/Lungs: [No acute abnormalities] This 66-year-old male presents to the emergency room for evaluation of abdominal pain. When I evaluated this patient he did have epigastric abdominal pain with palpation of the abdomen. The patient does have a history of gastritis. Lab work was obtained including EKG which is nonischemic. His troponin is negative. The patient was given a GI cocktail and when I reevaluated him he said he was feeling much better. This patient is hemodynamically stable at this time and will be discharged home with a prescription for Zantac as I feel that his epigastric abdominal pain secondary to reflux disease. The patient states that he used to take Zantac and it used to help him drastically. The patient was advised he can return to the emergency room at any point for reevaluation if he continues to have any pain and he feels comfortable with the plan of discharge at this time. Differential diagnoses entertained was broad with potential high acuity. Patient has been evaluated for appendicitis, cholecystitis, and other high risk medical and surgical causes of abdominal pain. Ultimately the patient's evaluation is nondiagnostic. Based on the patient's lack of risk factors, as well as the patient's clinical, laboratory, and imaging data, the patient appears to be low risk for these high risk causes of abdominal pain. Departure Diagnosis: Primary Impression: Abdominal pain Additional Impression: Acute gastritis Condition: Stable SHABBIR LANGLEY DO Dec 02, 2016 11:30
[2016-12-02] MEDS ORDERED: RANI150T9 PO (11:31)
[2016-12-02 11:52] VITALS: BP 125/70; PULSE 88; RESP 18
== END 2016-12-02 13:43 | disposition home or self-care (01) ==
LOC: E/R 09:33
DX: K29.00 Acute gastritis without bleeding (principal); I10 Essential (primary) hypertension; I50.9 Heart failure, unspecified; F17.210 Nicotine dependence, cigarettes, uncomplicated
CPT/HCPCS: 36415; 71010; 80053; 81003; 83690; 84484; 85025; 93005; 96374; 96375; J2270; J2405; J7030; Z7502; Z7610

== ENCOUNTER 2016-12-08 21:13 | Emergency (ER) | payer MEDICARE, OTHER ==
[~2016-12-08] VITALS: Ht 175.3 cm; Wt 120.0 kg
[~2016-12-08 21:13] MED LIST changes: -DOCU240C14 PO; -FER325 PO; -MECL12.574 PO; +RANI150T9 PO; -SUMA50TA11 PO; -TOPI25TA51 PO
[2016-12-08 21:34] VITALS: Ht 175.3 cm; Wt 120.0 kg
--- NOTE | 2016-12-09 02:15 | RADRPT ---
PROCEDURE: CHEST CLINICAL INDICATION: 66-year-old male with chest pain. TECHNIQUE: AP upright view of the chest was obtained portably on two radiographs. The images wer e reviewed on a PACS workstation. COMPARISON: Chest x-ray April 03, 2016. FINDINGS: The cardiomediastinal silhouette is mildly prominent but without significant interval change. The de scending thoracic aorta is ectatic. The lung apices are partially obscured by the patient's mandible . There is no evidence for an infiltrate. There is no evidence for congestive heart failure. There is no evidence for pneumothorax. The osseous structures are intact. IMPRESSION: No evidence for active cardiopulmonary disease. .Cecilio Hanna MD, Date Time Electronically viewed and signed by .Cecilio Hanna MD, MD on 12/09/2016 02:15 .Marnie
[2016-12-09 02:18] LABS: BASOPHILS % 0.3 % (0.0-2.0); EOSINOPHILS # 0.2 10^3/ul (0.0-0.5); EOSINOPHILS % 1.9 % (0.0-7.0); HEMATOCRIT 36.2 % (42.0-52.0); HEMOGLOBIN 11.7 g/dl (14.0-18.0); LYMPHOCYTES # 3.6 10^3/ul (0.8-2.9); LYMPHOCYTES % 30.1 % (15.0-51.0); MEAN CORPUSCULAR HEMOGLOBIN 28.6 pg (29.0-33.0); MEAN CORPUSCULAR HGB CONC 32.3 g/dl (32.0-37.0); MEAN CORPUSCULAR VOLUME 88.5 fl (82.0-101.0); MEAN PLATELET VOLUME 9.8 fl (7.4-10.4); MONOCYTE # 1.1 10^3/ul (0.3-0.9); MONOCYTES % 9.6 % (0.0-11.0); NEUTROPHIL # 6.8 10^3/ul (1.6-7.5); NEUTROPHILS % 57.8 % (39.0-77.0); PLATELET COUNT 240 10^3/UL (140-415); RED BLOOD COUNT 4.09 10^6/ul (4.70-6.10); RED CELL DISTRIBUTION WIDTH 14.9 % (11.5-14.5); WHITE BLOOD COUNT 11.8 10^3/ul (4.8-10.8)
[2016-12-09 02:39] LABS: ANION GAP 13 (8-16); BLOOD UREA NITROGEN 19 mg/dl (7-20); CALCIUM 8.8 mg/dl (8.4-10.2); CARBON DIOXIDE 30 mmol/L (21-31); CHLORIDE 104 mmol/L (97-110); CREATININE 1.62 mg/dl (0.61-1.24); GLUCOSE 96 mg/dl (70-220); POTASSIUM 3.5 mmol/L (3.5-5.1); SODIUM 143 mmol/L (135-144)
--- NOTE | 2016-12-09 02:41 | RADRPT ---
PROCEDURE: CT BRAIN WITHOUT CONTRAST CLINICAL INDICATION: 66-year-old male with headaches and weakness. TECHNIQUE: The study was performed utilizing [employer]'s Talking VCT 64-slice CT scanner. Direct axial sections were obtained from the foramen magnum to the vertex without the use of intravenous contrast material. Sagittal and coronal reformations were obtained. One or more of the following dose reduc tion techniques were utilized: automated exposure control, adjustment of the mA and/or kV according to patient's size or use of iterative reconstruction technique. The images were viewed on a PACS w orkstation. CTD/vol = 45.0 mGy; Total Exam DLP = 810.3 mGy-cm. COMPARISON: CT BRAIN 09/15/2016; CT BRAIN 01/16/2016 FINDINGS: There is persistent diffuse increased density along the bilateral transverse and posterior aspect of the superior sagittal sinuses within an "empty delta sign." This is consistent with chronic thrombo sis. There is mild prominence of the sulci and cisternal spaces consistent with diffuse volume loss. The ventricular configuration is without interval change. There is no evidence for mass effect or m idline shift. Mild calcifications are seen within the intracranial carotid arteries bilaterally. The re is no evidence for acute intra or extra-axial blood. The bony calvarium is intact. There is a def ect within the inferior left orbital floor presumably from a prior fracture. There is minimal mucosa l thickening within the inferior right maxillary sinus. No air-fluid levels are noted. The mastoid a ir cells without significant soft tissue. IMPRESSION: 1. The intracranial contents are without significant interval change compared to the patient's prio r CT scans. 2. Persistent diffuse increased density along the bilateral transverse and posterior superior sagit pranay sinus consistent with chronic sinus thrombosis. 3. Mild diffuse volume loss. 4. Vascular calcifications. 5. Small defect inferior left orbital floor presumably from prior fracture. 6. Minimal mucosal thickening inferior right maxillary sinus. .Cecilio Hanna MD, Date Time Electronically viewed and signed by .Cecilio Hanna MD, MD on 12/09/2016 02:41 .M/
[2016-12-09] MEDS ORDERED: MECLIZINE 12.5 MG TAB PO ONE (03:00)
--- NOTE | 2016-12-09 03:04 | ERD ---
ER Documentation Chief Complaint Date/Time DATE: 12/09/16 TIME: 03:01 Chief Complaint c/o gastritis. now c/o left side severe headache and dizziness the last hr HPI This is a 66-year-old male presents to the emergency room for evaluation of dizziness. The patient describes his dizziness as a lightheaded sensation. He states that is been present for approximately 5 hours. He denies any headaches at this time and came to the ER for evaluation. The patient denies any numbness or tingling, denies any weakness in the upper lower extremities ROS All systems reviewed and are negative except as per history of present illness. Medications Home Meds Active Scripts Ranitidine Hcl* (Zantac*) 150 Mg Tablet, 150 MG PO BID Y for EPIGASTRIC PAIN, # 30 TAB Prov:SHABBIR LANGLEY DO 12/02/16 Reported Medications Docusate Sodium* (Docusate Sodium*) 100 Mg Capsule, 100 MG PO DAILY, #30 CAP 09/17/16 Methadone Hcl* (Methadone*) 5 Mg Tab, 45 MG PO DAILY, TAB PER PT RECEIVES RX AT [facility] CALL [phone] ASK FOR BLESSING 04/22/16 Atenolol* (Atenolol*) 50 Mg Tablet, 50 MG PO DAILY, #30 TAB 04/22/16 Nifedipine* (Nifedical XL*) 60 Mg/Bottle Tab.osm.24, 60 MG PO DAILY, TAB 05/15/14 Atorvastatin Calcium* (Atorvastatin Calcium*) 20 Mg Tablet, 20 MG PO HS, TAB 05/15/14 Discontinued Reported Medications Docusate Calcium* (Docusate Calcium*) 240 Mg Capsule, 240 MG PO BID, CAP 04/22/16 Discontinued Scripts Meclizine Hcl* (Antivert*) 12.5 Mg Tab, 12.5 MG PO Q6H Y for DIZZINESS, #20 TAB Prov:CESARIO VADLES 09/15/16 Topiramate* (Topamax*) 25 Mg Tablet, 25 MG PO BID, #60 TAB 2 Refills Prov:KENDRICK ZALDIVAR S. 04/28/16 Sumatriptan Succinate* (Imitrex*) 50 Mg Tablet, 50 MG PO Q12 Y for HEADACHE, # 30 TAB 1 Refill Prov:KENDRICK ZALDIVAR S. 04/28/16 Ferrous Sulfate* (Ferrous Sulfate*) 325 Mg Tabec, 325 MG PO BID for 30 Days, TAB Prov:FEDERICO WIGGINS MANAGER ACCESS 04/07/16 Allergies Allergies: Coded Allergies: No Known Allergies (Verified Allergy, Mild, 12/02/16) PMhx/Soc History of Surgery: Yes (GB) Anesthesia Reaction: No Hx Respiratory Disorders: Yes (BRONCHITIS) Hx Psychiatric Problems: Yes (MILD ANXIETY AND DEPRESSION) Hx Alcohol Use: No Hx Substance Use: Yes (ex IVDA) Hx Tobacco Use: Yes Smoking Status: Former smoker Physical Exam Vitals Vital Signs Date Time Temp Pulse Resp B/P Pulse Ox O2 Delivery O2 Flow Rate FiO2 12/08/16 21:34 98.0 80 20 138/73 96 Physical Exam INITIAL VITAL SIGNS: Reviewed by me GENERAL: The patient is well developed and appropriate for usual state of health in no apparent distress HEENT: Pupils equal, round, and reactive to light. EOMI. There is no scleral icterus. NECK: C-spine is soft and supple, there is no meningismus. There is no cervical lymphadenopathy. LUNGS: Clear to auscultation bilaterally. There are no rales, wheezes or rhonchi. HEART: Regular rate and rhythm, no murmurs, clicks, rubs or gallops. ABDOMEN: Soft, non-tender, non-distended. There are bowel sounds in all four quadrants. No rebound or guarding. EXTREMITIES: There is no peripheral cyanosis or edema. No focal swelling or erythema. NEUROLOGICAL: The patient moves all four extremities with 5/5 strength. Cranial nerves II - XII are intact. Normal gait. Alert and oriented to person place and time with no focal neurological deficits SKIN: There is no apparent rash or petechiae. HEME/LYMPHATIC: There is no evidence of excessive bruising or lymphedema. PSYCHIATRIC: The patient does not appear anxious or depressed. Result Diagram: 12/09/16 02012/09/16 020 Results 24 hrs Laboratory Tests Test 12/09/16 02:00 White Blood Count 11.810^3/ul Red Blood Count 4.0910^6/ul Hemoglobin 11.7g/dl Hematocrit 36.2% Mean Corpuscular Volume 88.5fl Mean Corpuscular Hemoglobin 28.6pg Mean Corpuscular Hemoglobin Concent 32.3g/dl Red Cell Distribution Width 14.9% Platelet Count 87662^3/UL Mean Platelet Volume 9.8fl Neutrophils % 57.8% Lymphocytes % 30.1% Monocytes % 9.6% Eosinophils % 1.9% Basophils % 0.3% Nucleated Red Blood Cells % 0.0/100WBC Neutrophils # 6.810^3/ul Lymphocytes # 3.610^3/ul Monocytes # 1.110^3/ul Eosinophils # 0.210^3/ul Basophils # 0.010^3/ul Nucleated Red Blood Cells # 0.010^3/ul Sodium Level 143mmol/L Potassium Level 3.5mmol/L Chloride Level 104mmol/L Carbon Dioxide Level 30mmol/L Anion Gap 13 Blood Urea Nitrogen 19mg/dl Creatinine 1.62mg/dl Glucose Level 96mg/dl Calcium Level 8.8mg/dl Troponin I Pending Current Medications Medications (Trade) Dose Ordered Sig/Ash Route PRN Reason Start Time Stop Time Status Last Admin Dose Admin Meclizine HCl (Antivert) 25 mg ONCE ONCE PO 12/09/16 03:00 12/09/16 03:01 12/09/16 02:59 Procedures/MDM EKG: Rate/Rhythm: [Normal Sinus Rhythm] QRS, ST, T-waves: [No changes consistent w/ acute ischemia] Impression: [No evidence of ischemia or arrhythmia] Chest X-ray 1V Interpreted by me: Soft Tissue: No acute abnormalities Bones: No acute abnormalities Mediastinum/Cardiac Silhouette/Lungs: [No acute abnormalities] CT brain without: 1. The intracranial contents are without significant interval change compared to the patient's prior CT scans. 2. Persistent diffuse increased density along the bilateral transverse and posterior superior sagittal sinus consistent with chronic sinus thrombosis. 3. Mild diffuse volume loss. 4. Vascular calcifications. 5. Small defect inferior left orbital floor presumably from prior fracture. 6. Minimal mucosal thickening inferior right maxillary sinus. This 66-year-old male presents to the ER for evaluation of dizziness. When I evaluated this patient the patient had no focal neurologic this, he was complaining of lightheadedness. He underwent a cardiac workup in the emergency room which does not show any acute abnormalities. His EKG is nonischemic, chest x-ray is clear. Patient also underwent a CT of the brain without contrast to rule out any acute intracranial pathology. 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 There is no signs of any acute CVA. He was given meclizine in the emergency room for dizziness and when I reevaluated him he does state he is feeling better at this time. This patient will be discharged home with a prescription for meclizine at this time he was instructed to follow-up with his primary care physician or return to the ER if his symptoms worsen. The patient verbalized understanding and is okay to plan of care. My suspicion for CV is low at this time given the fact that the patient has no focal neurological deficits at this time Smoking Cessation Therapy: Pt. was lectured for greater than 3 minutes on the health risks of continued smoking and the benefits of cessation. Departure Diagnosis: Primary Impression: Dizziness Additional Impressions: Tobacco abuse Dural sinus thrombosis Anemia Condition: Stable SHABBIR LANGLEY DO Dec 09, 2016 03:04
[2016-12-09 03:05] VITALS: BP 146/69; PULSE 66; RESP 18
[2016-12-09] MEDS ORDERED: MECL12.574 PO (03:05)
[2016-12-09 03:09] LABS: TROPONIN-I < 0.012 ng/ml (0.00-0.12)
== END 2016-12-09 03:13 | disposition home or self-care (01) ==
LOC: E/R 21:13
DX: R42 Dizziness and giddiness (principal); F17.210 Nicotine dependence, cigarettes, uncomplicated; G08 Intracranial and intraspinal phlebitis and thrombophlebitis; D64.9 Anemia, unspecified
CPT/HCPCS: 36415; 70450; 71010; 80048; 84484; 85025; 93005

== ENCOUNTER 2017-02-16 12:36 | Inpatient (IN) | payer MEDICARE, OTHER ==
[~2017-02-16] VITALS: Ht 180.3 cm; Wt 120.5 kg
[~2017-02-16 12:36] MED LIST changes: +MECL12.574 PO
--- NOTE | 2017-02-16 13:27 | ERD ---
ER Documentation Chief Complaint Chief Complaint ALOC X 15 MINUTES AGO, RECENT DIAGNOSIS OF BRAIN TUMOR, A0X1 NAME ONLY HPI This is a 66-year-old male with a known history of a brain tumor diagnosed 5 years ago. The patient had been on Pradaxa and 48 hours ago moved from [place] to [place]. When they arrived to [place] the patient's sister stated he became very confused and altered and therefore was admitted to [facility]. He had been diagnosed with a blood clot however his sister is unaware if it was in his lungs brain or lower extremities. He had been admitted and placed on a heparin drip however they had to leave AGAINST MEDICAL ADVICE given that they had to return to [place] today to sign departure papers from their apartment. About 15 minutes prior to arrival the patient complained of a mild headache. He became more confused and was unaware of his location as the sister stated they have been sitting eating chicken when he could not state that he was in a restaurant. This did became very certain and immediately brought him to [facility] for further evaluation. She stated there was no slurred speech. He did not have a facial droop. He was able to ambulate but always is very unsteady in his gait. His sister indicates he has had multiple similar episodes of this over the past several years since the diagnosis of his brain tumor which never required radiation surgical intervention or chemotherapy according to the sister. ROS All systems reviewed and are negative except as per history of present illness. Medications Home Meds Active Scripts Meclizine Hcl* (Antivert*) 12.5 Mg Tab, 12.5 MG PO Q6H Y for DIZZINESS, #20 TAB Prov:SHABBIR LANGLEY DO 12/09/16 Ranitidine Hcl* (Zantac*) 150 Mg Tablet, 150 MG PO BID Y for EPIGASTRIC PAIN, # 30 TAB Prov:SHABBIR LANGLEY DO 12/02/16 Reported Medications Docusate Sodium* (Docusate Sodium*) 100 Mg Capsule, 100 MG PO DAILY, #30 CAP 09/17/16 Methadone Hcl* (Methadone*) 5 Mg Tab, 45 MG PO DAILY, TAB PER PT RECEIVES RX AT [facility] CALL [phone] ASK FOR BLESSING 04/22/16 Atenolol* (Atenolol*) 50 Mg Tablet, 50 MG PO DAILY, #30 TAB 04/22/16 Nifedipine* (Nifedical XL*) 60 Mg/Bottle Tab.osm.24, 60 MG PO DAILY, TAB 05/15/14 Atorvastatin Calcium* (Atorvastatin Calcium*) 20 Mg Tablet, 20 MG PO HS, TAB 05/15/14 Allergies Allergies: Coded Allergies: No Known Allergies (Verified Allergy, Mild, 12/02/16) PMhx/Soc History of Surgery: Yes (GB) Anesthesia Reaction: No Hx Respiratory Disorders: Yes (BRONCHITIS) Hx Psychiatric Problems: Yes (MILD ANXIETY AND DEPRESSION) Hx Alcohol Use: No Hx Substance Use: Yes (ex IVDA) Hx Tobacco Use: Yes Physical Exam Vitals Vital Signs Date Time Temp Pulse Resp B/P Pulse Ox O2 Delivery O2 Flow Rate FiO2 02/16/17 19:00 52 18 141/75 97 Room Air 02/16/17 18:22 60 12 137/82 99 Room Air 02/16/17 16:27 49 16 121/86 98 Room Air 02/16/17 12:42 99.7 62 20 115/65 96 Physical Exam Constitutional:Well-developed. Well-nourished. HEENT:Normocephalic. Atraumatic.Pupils were equal round reactive to light. Moist mucous membranes.No tonsillar exudates. Neck: No nuchal rigidity. No lymphadenopathy. No posterior cervical spine tenderness or step-offs. Respiratory: Not using accessory muscles of respiration.Lungs were clear to auscultation bilaterally. No rhonchi. No rales. No wheezing. Cardiovascular: Regular rate regular rhythm.No murmurs. No rubs were appreciated.S1, S2 normal. Distal pulses are palpable 2+ bilaterally. GI: Abdomen was soft. Nontender. Non Distended. No pulsatile abdominal masses or bruits. No rebound. No guarding. Bowel sounds were present and normal. Muscle skeletal: Full range of motion of both the upper and lower extremities bilaterally.Normal muscle tone.No assymetrical calf tenderness or swelling. Skin: No petechia, no purpura. No lesions on the palms or the soles of the feet. No maculopapular rash. NEURO: Patient was alert, awake, orientated x3.No facial droop. Gait observed and normal with no ataxia.Speech had regular rate and rhythm. No focal neurological deficits. Result Diagram: 02/16/17 1320 02/16/17 1320 Results 24 hrs Laboratory Tests Test 02/16/17 13:20 White Blood Count 9.510^3/ul Red Blood Count 4.0710^6/ul Hemoglobin 12.0g/dl Hematocrit 35.5% Mean Corpuscular Volume 87.2fl Mean Corpuscular Hemoglobin 29.5pg Mean Corpuscular Hemoglobin Concent 33.8g/dl Red Cell Distribution Width 13.8% Platelet Count 62984^3/UL Mean Platelet Volume 9.8fl Neutrophils % 63.4% Lymphocytes % 26.3% Monocytes % 8.3% Eosinophils % 1.4% Basophils % 0.4% Nucleated Red Blood Cells % 0.0/100WBC Neutrophils # 6.010^3/ul Lymphocytes # 2.510^3/ul Monocytes # 0.810^3/ul Eosinophils # 0.110^3/ul Basophils # 0.010^3/ul Nucleated Red Blood Cells # 0.010^3/ul Prothrombin Time 14.6Sec Prothrombin Time Ratio 1.1 INR International Normalized Ratio 1.12 Activated Partial Thromboplast Time 38.0Sec Sodium Level 141mmol/L Potassium Level 3.7mmol/L Chloride Level 106mmol/L Carbon Dioxide Level 23mmol/L Anion Gap 16 Blood Urea Nitrogen 18mg/dl Creatinine 1.60mg/dl Glucose Level 113mg/dl Calcium Level 9.0mg/dl Total Bilirubin 0.3mg/dl Direct Bilirubin 0.00mg/dl Indirect Bilirubin 0.3mg/dl Aspartate Amino Transf (AST/SGOT) 20IU/L Alanine Aminotransferase (ALT/SGPT) 28IU/L Alkaline Phosphatase 87IU/L Creatine Kinase 114IU/L Creatine Kinase Index 0.8 Creatinine Kinase MB (Mass) 0.94ng/ml Troponin I < 0.012ng/ml Total Protein 7.7g/dl Albumin 3.7g/dl Globulin 4.00g/dl Albumin/Globulin Ratio 0.92 Salicylates Level < 1.0mg/dl Ethyl Alcohol Level < 10.0mg/dl Current Medications Medications (Trade) Dose Ordered Sig/Ash Route PRN Reason Start Time Stop Time Status Last Admin Dose Admin Sodium Chloride (NS) 1,000 ml @ 1,000 mls/hr Q1H STAT IV 02/16/17 15:26 02/16/17 16:25 DC 02/16/17 17:35 IV Flush 10 ml 10 ml STK-MED ONCE .ROUTE 02/16/17 15:28 02/16/17 15:29 DC 02/16/17 15:55 Sodium Chloride (NS) 100 ml @ ud STK-MED ONCE .ROUTE 02/16/17 15:28 02/16/17 15:29 DC 02/16/17 15:55 Iodixanol (Visipaque Locm) 100 ml STK-MED ONCE .ROUTE 02/16/17 15:28 02/16/17 15:29 DC 02/16/17 15:56 Ondansetron HCl (Zofran Inj) 4 mg ER BRIDGE PRN IV NAUSEA AND/OR VOMITING 02/16/17 18:30 02/17/17 18:29 Acetaminophen (Tylenol Tab) 650 mg ER BRIDGE PRN PO MILD PAIN/FEVER 02/16/17 18:30 02/17/17 18:29 IV Flush (NS 3 ml) 3 ml PER PROTOCOL IV 02/16/17 19:00 Ondansetron HCl (Zofran Inj) 4 mg Q6H PRN IV NAUSEA AND/OR VOMITING 02/16/17 19:00 Acetaminophen (Tylenol Tab) 650 mg Q6H PRN PO PAIN LEVEL 1-3 OR FEVER 02/16/17 19:00 Acetaminophen/ Hydrocodone Bitart (Woodrow (5/325)) 1 tab Q6H PRN PO MODERATE PAIN LEVEL 4-6 02/16/17 19:00 Morphine Sulfate (morphine) 2 mg Q4H PRN IV SEVERE PAIN LEVEL 7-10 02/16/17 19:00 Docusate Sodium (Colace) 100 mg Q12H PRN PO CONSTIPATION 02/16/17 19:00 Magnesium Hydroxide (Milk Of Mag) 30 ml DAILY PRN PO CONSTIPATION 02/16/17 19:00 Sodium Biphosphate/ Sodium Phosphate 133 ml 133 ml DAILY PRN [place] CONSTIPATION 02/16/17 19:00 Sodium Chloride (1/2 NS) 1,000 ml @ 75 mls/hr [id number] IV 02/16/17 18:38 Lorazepam (Ativan) 0.5 mg Q6H PRN IV ANXIETY 02/16/17 19:00 Albuterol/ Ipratropium (Duoneb) 3 ml Q4H RESP THERAPY PRN HHN SHORTNESS OF BREATH 12/20/17 19:00 Hydralazine HCl (Apresoline) 10 mg Q6H PRN IV ELEVATED BLOOD PRESSURE 02/16/17 19:00 Nitroglycerin (Nitroglycerin (Sl Tab) 0.4 Mg) 1 tab Q5M PRN SL ANGINA 02/16/17 19:00 Atorvastatin Calcium (Lipitor) 20 mg HS PO 02/16/17 21:00 Meclizine HCl (Antivert) 12.5 mg Q6H PRN PO DIZZINESS 02/16/17 19:00 Ranitidine HCl 150 mg 150 mg BID PRN PO EPIGASTRIC PAIN 02/16/17 19:00 Piperacillin Sod/ Tazobactam Sod (Zosyn 2.25gm/ 50ml (Pmx)) 50 ml @ 100 mls/hr Q6 IVPB 02/17/17 00:00 UNV Procedures/MDM The patient presented to the emergency department with an acute and persistent change in their mental status. The differential diagnosis is diverse however reversible causes such as hypoglycemia, opiate overdose, thiamine deficiency were immediately considered. The patient was placed on a monitoring analyst, continuous pulse oximetry and IV access was established. The patients airway was secure however hypoxic events such as anemia, shock, or severe pulmonary disease were all considered as etiologies in this patients presentation. Circulation assessed with good cap refill and did not require fluids or pressure support. Finger stick for rapid glucose determined to be normal. These note that I did not initiate a code stroke on this patient given that the symptoms have been intermittent for over 5 years. I did obtain a CT scan of the patient's chest showed no evidence of a pulmonary embolism. The patient received a liter bolus of 0.9 normal saline due to the mild elevation of his creatinine. There was no evidence of a deep vein thrombosis of his lower extremities. CT scan of the head showed a chronic dural venous sinus thrombosis that involves the superior sagittal sinus. 12 Lead EKG tracing ordered and reviewed by myself showed: Sinus bradycardia of 54 bpm and no arrhythmia. [place] interval normal. QRS duration normal. No ST segment elevation No ST segment depression. No changes consistent with acute ischemia. The patient will be admitted for further evaluation into the changes in his mental status. He had no electrolyte abnormalities. No evidence of myocardial ischemia. He will be admitted to the hospitalist for observation. Placed a neurosurgical consult but after speaking with the neurosurgeon Dr. Corey he did state that this requires no neurosurgical intervention at this time and this was relayed to the admitting physician Dr. Cristin Khan Diagnosis: Primary Impression: Altered level of consciousness Additional Impression: Cerebral venous sinus thrombosis Condition: Serious MAGAN CALVERT Feb 16, 2017 13:27
[2017-02-16 13:38] LABS: BASOPHILS % 0.4 % (0.0-2.0); EOSINOPHILS # 0.1 10^3/ul (0.0-0.5); EOSINOPHILS % 1.4 % (0.0-7.0); HEMATOCRIT 35.5 % (42.0-52.0); LYMPHOCYTES # 2.5 10^3/ul (0.8-2.9); LYMPHOCYTES % 26.3 % (15.0-51.0); MEAN CORPUSCULAR HEMOGLOBIN 29.5 pg (29.0-33.0); MEAN CORPUSCULAR HGB CONC 33.8 g/dl (32.0-37.0); MEAN CORPUSCULAR VOLUME 87.2 fl (82.0-101.0); MEAN PLATELET VOLUME 9.8 fl (7.4-10.4); MONOCYTE # 0.8 10^3/ul (0.3-0.9); MONOCYTES % 8.3 % (0.0-11.0); NEUTROPHILS % 63.4 % (39.0-77.0); PLATELET COUNT 252 10^3/UL (140-415); RED BLOOD COUNT 4.07 10^6/ul (4.70-6.10); RED CELL DISTRIBUTION WIDTH 13.8 % (11.5-14.5); WHITE BLOOD COUNT 9.5 10^3/ul (4.8-10.8)
[2017-02-16 13:53] LABS: INR 1.12; PROTIME 14.6 Sec (11.9-14.9); PT RATIO 1.1
[2017-02-16 13:57] LABS: ALANINE AMINOTRANSFERASE 28 IU/L (13-69); ALBUMIN 3.7 g/dl (3.3-4.9); ALBUMIN/GLOBULIN RATIO 0.92; ALKALINE PHOSPHATASE 87 IU/L (42-121); ANION GAP 16 (8-16); ASPARTATE AMINO TRANSFERASE 20 IU/L (15-46); BILIRUBIN,INDIRECT 0.3 mg/dl (0-1.1); BILIRUBIN,TOTAL 0.3 mg/dl (0.2-1.3); BLOOD UREA NITROGEN 18 mg/dl (7-20); CARBON DIOXIDE 23 mmol/L (21-31); CHLORIDE 106 mmol/L (97-110); CREATINE KINASE 114 IU/L (23-200); GLUCOSE 113 mg/dl (70-220); POTASSIUM 3.7 mmol/L (3.5-5.1); SODIUM 141 mmol/L (135-144); TOTAL PROTEIN 7.7 g/dl (6.1-8.1)
[2017-02-16 14:04] LABS: ETHANOL < 10.0 mg/dl; SALICYLATE < 1.0 mg/dl (5.0-30.0)
--- NOTE | 2017-02-16 14:12 | RADRPT ---
PROCEDURE: CT head without intravenous contrast CLINICAL INDICATION: Altered mental status. COMPARISON: CT from 12/09/2016, 09/15/2016, and 06/14/2014. MRI from 03/09/2013 TECHNIQUE: Axial CT images from skull base to vertex with coronal and sagittal reformats. DICOM imag es are available. DOSE: The estimated administered radiation dose was CTDI vol = 43 mGy. DLP = 720 mGy-cm. One or mor e of the following dose reduction techniques were used: automated exposure control, adjustment of th e mA and/or kV according to patient size, or use of iterative reconstruction. FINDINGS: Parenchyma: No acute hemorrhage, large territorial infarction, or mass. Empty sella. Ventricles: No ventriculomegaly or ventricular effacement. Extra-axial spaces: No herniation or midline shift. Paranasal sinuses: Clear. Mastoids and middle ears: Clear. Visualized orbits: Normal. Vessels: Chronic increased density and calcification along the demarco of the superior sagittal sinus, torcula, and straight sinus consistent with known chronic dural venous sinus thrombosis. Mild calc ified atherosclerotic arterial plaque. Bones: Normal. Extracranial soft tissues: Normal. Additional comment: None. IMPRESSION: 1. No acute intracranial abnormality. 2. Chronic dural venous sinus thrombosis involving the superior sagittal sinus, straight sinus, torc brandt. RPTAT: PP Physician Sherrell Date Time Electronically viewed and signed by Physician Sherrell on 02/16/2017 14:12 LG/
[2017-02-16 14:13] LABS: CK-MB 0.94 ng/ml (0.0-2.4); TROPONIN-I < 0.012 ng/ml (0.00-0.12)
--- NOTE | 2017-02-16 14:30 | RADRPT ---
PROCEDURE: XR Chest. CLINICAL INDICATION: Shortness of breath TECHNIQUE: Single portable view of the chest was obtained COMPARISON: CR CHEST 04/03/2016; CR CHEST 09/21/2012; CR CHEST 09/19/2012 FINDINGS: The trachea is midline. The cardiac silhouette and pulmonary vascularity are within normal limits. T he lungs are clear. The costophrenic angles are sharp. IMPRESSION: 1. No evidence of acute cardiopulmonary disease. RPTAT: AAPP Physician Yayo Date Time Electronically viewed and signed by Concetta Rodriguez Physician on 02/16/2017 14:30 JL/
--- NOTE | 2017-02-16 15:06 | RADRPT ---
PROCEDURE: US Lower extremity Venous. CLINICAL INDICATION: Bilateral lower extremity edema TECHNIQUE: Multiple sonographic images of the bilateral lower extremity deep venous system was obt ained utilizing grayscale, color-flow, compressive sonography and doppler imaging with augmentation. The images were reviewed on a PACS workstation. COMPARISON: None. FINDINGS: There is normal compressibility and flow within the bilateral common femoral, femoral , posterior ti bial and popliteal veins. RPTAT: AA IMPRESSION: No sonographic evidence for deep venous thrombosis. .Pantera Prela MD, MD Date Time Electronically viewed and signed by .Pantera Perla MD, on 02/16/2017 15:05 .S/
[2017-02-16] MEDS ORDERED: SOD CHLORIDE 0.9% 1,000 ML IV STA (15:26)
[2017-02-16] MEDS ORDERED: IODIXANOL LOCM 100 ML BTL ONE ×2 (15:28→19:57)
[2017-02-16] MEDS ORDERED: SOD CHLORIDE 0.9% 100 ML ONE ×2 (15:28→19:57)
--- NOTE | 2017-02-16 16:20 | RADRPT ---
PROCEDURE: CTA Chest. CLINICAL INDICATION: Chest pain and shortness of breath TECHNIQUE: Continues 1.25 mm axial images were obtained from lung apices to the domes of diaphragm s following intravenous injection of 100 cc of Isovue 370. Images reconstructed in coronal, sagitta l, and 3-D format using maximum intensity projection technique.. The calculated dose length product (DLP) = 807.97 mGy-cm. The CTDlvol = 20.03 mGy. One or more of the following dose reduction techniq ues were used: Automated exposure control, adjustment of the mA and or KV according to patient size, or use of iterative reconstruction technique. COMPARISON: No prior studies are available for comparison. FINDINGS: Images through the pulmonary arteries demonstrates no evidence of large or central pulmonary emboli. The ascending and descending thoracic aorta are normal in caliber without aneurysmal dilatation or dissection. Heart chambers are mildly enlarged with left ventricular hypertrophy. Moderate left jena nary calcification is seen. There is no pericardial effusion. No pathologically enlarged mediastinal or axillary lymph nodes are identified. There is a small hiatal hernia with fluid in the distal eso phagus suggesting reflux disease. Evaluation of the lung forman demonstrates no confluent pneumonia, pleural fluid, or pneumothorax. N o suspicious or dominant lung nodules/masses are seen. No destructive bony lesions are seen. There is mild to moderate degenerate change of the thoracic co shavonne and upper lumbar spine with bridging osteophytes. IMPRESSION: 1. No evidence of large or central pulmonary emboli. 2. No aortic aneurysm or dissection. 3. Lungs clear 4. Small hiatal hernia with probable reflux. 5. Mild cardiomegaly and moderate left coronary calcification RPTAT: HH .Po Clifford MD, MD Date Time Electronically viewed and signed by .Po Clifford MD, MD on 02/16/2017 16:20 .W/
[2017-02-16] MEDS ORDERED: ONDANSETRON 4 MG INJ IV PRN ×2 (18:30→19:00)
[2017-02-16] MEDS ORDERED: ACETAMINOPHEN 325 MG TAB PO PRN ×2 (18:30→19:00)
[2017-02-16] MEDS ORDERED: ALBUTEROL/IPRATROPIUM (NEB) 3 ML AMP HHN PRN (19:00)
[2017-02-16] MEDS ORDERED: NITROGLYCERIN (SL) 0.4 MG TAB SL PRN (19:00)
[2017-02-16] MEDS ORDERED: HYDROCODONE/APAP (5/325) TAB PO PRN (19:00)
[2017-02-16] MEDS ORDERED: RANITIDINE 150 MG TAB PO PRN (19:00)
[2017-02-16] MEDS ORDERED: morphine 2 MG INJ IV PRN (19:00)
[2017-02-16] MEDS ORDERED: MAGNESIUM HYDROXIDE 30ML CUP PO PRN (19:00)
[2017-02-16] MEDS ORDERED: DOCUSATE SODIUM 100 MG CAP PO PRN (19:00)
[2017-02-16] MEDS ORDERED: NA PHOSPHATE/BIPHOS 133 ML ENEMA PR PRN (19:00)
[2017-02-16] MEDS ORDERED: LORAZEPAM 2 MG INJ IV PRN (19:00)
[2017-02-16] MEDS ORDERED: hydrALAzine 20 MG INJ IV PRN (19:00)
[2017-02-16] MEDS ORDERED: NACL 0.9% 3 ML SYG IV SCH (19:00)
[2017-02-16] MEDS ORDERED: MECLIZINE 12.5 MG TAB PO PRN (19:00)
[2017-02-16 20:29] VITALS: PULSE 40
[2017-02-16 20:45] VITALS: BP 159/82; RESP 20
[2017-02-16 20:53] VITALS: Ht 180.3 cm; Wt 120.5 kg
--- NOTE | 2017-02-16 20:53 | RADRPT ---
PROCEDURE: CT soft tissue neck with contrast CLINICAL INDICATION: Recent dental extraction. Concern for abscess TECHNIQUE: A CT of the neck was performed utilizing axial sections from the from the thoracic inle t through the skull base with contrast. Coronal and sagittal images were also reformatted. 100 cc of Omnipaque-300 intravenous contrast was administered. One or more of the following dose reduction te chniques were used: Automated exposure control, adjustment of the mA and/or kV according to patient size, use of iterative reconstruction technique. The exam CTDI vol = 9.67 mGy and DLP = 211.04 mGy-cm. COMPARISON: None available FINDINGS: Visualized intracranial structures and skull base: The included portions of the cerebral hemispheres and posterior fossa are unremarkable with the fourth ventricle midline. Small mucous retention cyst or polyp within the inferior anterior right maxillary sinus is noted The mastoid air cells and rem aining included paranasal sinuses are clear. Nasopharynx, oropharynx and tongue base: The tonsils are symmetric. The parapharyngeal fat planes a re preserved bilaterally. No nasopharyngeal mass is present. The tongue base is unremarkable. Jonnathan e dental amalgam artifact limits fine evaluation of these regions. Multiple right maxillary teeth ar e absent. The left maxillary teeth are unremarkable Parotid and behavioral health aide spaces: The glands are normal in size and homogeneous in attenuation without mass or inflammation. The muscles of mastication and temporomandibular joints are normal bilaterall y. There is no evidence of mandibular periostitis or osteomyelitis, the remaining mandibular teeth a re grossly normal Carotid spaces: No evidence of mass lesion. The lymph nodes are normal in size bilaterally without evidence of adenopathy. The vasculature is unremarkable bilaterally. Submandibular and submental spaces: Calcifications within the right submandibular gland are concerni ng for sialolithiasis with a atrophy of the right submandibular gland, likely chronic. The left subm andibular gland is unremarkable. The lymph nodes are normal. There is some stranding of the fat wit hin the anterior neck of the submental space concerning for cellulitis without evidence of abscess. The platysma is normal bilaterally. The sublingual space is unremarkable. Posterior triangles: Normal bilaterally. Larynx and infraglottic airway: The epiglottis, aryepiglottic folds, vocal cords and piriform sinus es are unremarkable. No intrinsic tracheal abnormality is demonstrated. Visceral space: The thyroid gland is normal in size. There is no evidence of mass or adenopathy. Th e cervical esophagus is unremarkable. Supraclavicular fossae: No evidence of adenopathy or mass lesion. Visualized thorax: Not included in the field of view Cervical spine: Sclerosis and endplate irregularity at C3-4 with disc space narrowing may be the seq uela of prior diskitis and osteomyelitis rather than degenerative disc disease. There is no evidence of abnormal enhancement. RPTAT:HJJR IMPRESSION: 1. Mild stranding of the fat involving the anterior neck in the submental space suggest cellulitis b ut there is no evidence of abscess. 2. No evidence of periostitis or osteomyelitis involving the maxilla or mandible. 3. Atrophic right submandibular gland with multiple calcifications in the right submandibular space believed to reflect chronic sialolithiasis. 4. Endplate sclerosis and irregularity and C3-4 with disc narrowing possibly the sequela of prior d iskitis and osteomyelitis versus degenerative changes. 5. Incidental chronic-appearing right maxillary sinus disease. Physician Rahat Date Time Electronically viewed and signed by Physician Rahat on 02/16/2017 20:53 /
[2017-02-16] MEDS ORDERED: DEXTROSE 50% 50 ML SYRINGE IV PRN ×2 (21:00)
[2017-02-16] MEDS ORDERED: GLUCOSE GEL 15 GRAM TUBE BUCCAL PRN (21:00)
[2017-02-16] MEDS ORDERED: GLUCAGON 1 MG INJ IM PRN (21:00)
[2017-02-16] MEDS ORDERED: ATORVASTATIN 20 MG TAB PO SCH (21:00)
[2017-02-16] MEDS ORDERED: GLUCOSE GEL 15 GRAM TUBE PO PRN ×2 (21:00)
[2017-02-16 22:34] LABS: INR 1.08; PROTIME 14.1 Sec (11.9-14.9); PT RATIO 1.1
[2017-02-16 22:35] LABS: PARTIAL THROMBOPLASTIN TIME 37.4 Sec (25.0-35.0)
[2017-02-16] MEDS ORDERED: VITAMIN A & D 5 GM OINT PACKET TOP ONE (22:52)
[2017-02-16] MEDS: INSULIN ASPART [NOVOLOG] 3 ML PEN SC SCH (23:04)
[2017-02-16] MEDS: SOD CHLORIDE 0.45% 1,000 ML IV SCH (23:06)
--- NOTE | 2017-02-16 23:07 | HP ---
DATE OF ADMISSION: 02/16/2017 CHIEF COMPLAINT: Altered mental status. HISTORY OF PRESENT ILLNESS: A 66-year-old male with past medical history of headaches secondary to dural sinus thrombosis and migraines, history of superior sagittal sinus thrombosis, on anticoagulation, Eliquis at home; high cholesterol; type 2 diabetes; essential hypertension; diastolic dysfunction; anemia; renal insufficiency, who comes in this time with complaints of altered mental status. Apparently, the patient was recently in [place] trying to move there with his sister, and he became confused in the last 1-2 days and had to go to a hospital there, [facility]. They diagnosed a blood clot in his brain, presumably. the thrombosis that he is known to have, although this is exactly unclear. They were recommending heparin drip, but patient left [place] and returned to [place], as he is trying to sign some departure papers for some housework here in [place]. When he and his sister arrived here in [place] today; however, he continued to have altered mental status and headache. He also became more confused. He denies any upper and lower GI bleeding, no slurred speech, no facial droop, no nausea or vomiting, no diarrhea or constipation, no abdominal pain, no chest pain or shortness of breath. 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 He also had CTA of the chest that was negative for any pulmonary embolism. Patient also states he had a recent dental procedure about 3 weeks ago, where he had some teeth pulled, he said, and since that time, he has been having night sweats and some neck pain as well, although he denies coughing up any pus or productive cough. PAST MEDICAL HISTORY: As above. ALLERGIES: NO KNOWN DRUG ALLERGIES. HOME MEDICATIONS: 1. Atenolol 50 mg. 2. Atorvastatin 20 mg. 3. Nifedipine 60 mg. 4. Methadone 45 mg. 5. Colace 100 mg. 6. Antivert 12.5 mg q.6 p.r.n. 7. Zantac 150 mg b.i.d. p.r.n. PAST SURGICAL HISTORY: Gallbladder removal in the past. FAMILY HISTORY: Father had hypertension, diabetes and vascular disease. Mother had heart disease. SOCIAL HISTORY: Former smoker. Apparently, quit a few months ago, but prior 50-year smoking history, 4 cigarettes a day. Former IV drug abuse history. VITAL SIGNS: Today T-max 99.7, pulse 49-62, respirations 12-20, blood pressure is 115-141 systolic over 65 to 75 diastolic, satting at 97% on room air. PHYSICAL EXAMINATION: GENERAL: Patient is sitting up in bed, answering question appropriately, in mild distress, but alert. HEENT: Pupils equal, round, react to light. Extraocular muscles intact. NECK: Supple. No thyromegaly. LUNGS: Clear to auscultation bilaterally. CARDIOVASCULAR: S1, S2 heard. No rubs, gallops. ABDOMEN: Soft, nontender, nondistended. Normal bowel sounds. No rebound or guarding. MUSCULOSKELETAL: No lower extremity bilaterally. NEUROLOGIC: No focal deficits. LABORATORY DATA: Labs: CBC is normal. Basic metabolic panel is normal, except the creatinine is 1.6. Blood alcohol level is normal. Comprehensive metabolic panel is normal. Coags are normal. In addition to the imaging studies mentioned above, he also had lower extremity ultrasound negative for DVT bilaterally and chest x-ray, no evidence of any active cardiopulmonary disease. ASSESSMENT AND PLAN: A 66-year-old male with altered mental status, with history of type 2 diabetes, hypertension, high cholesterol, cerebral venous sinus thrombosis, and also neck pain and night sweats. 1. Altered mental status. Could be secondary to patient's history of chronic cerebral venous sinus thrombosis, as he also has history of migraines and tends to get headaches from this in the past. So will admit the patient. Do neuro checks every 4 hours. Consider Neurology versus Neurosurgery consult. He does see Dr. Garcia, the neurologist, who has him on Eliquis for the cerebral venous sinus thrombosis for the last 2 years. Before that, for 5 years he was taking Coumadin, he says. Check TSH, A1c, and lipid panel as well. 2. Neck pain and night sweats. Again, patient had recent dental procedure. His white blood cell count is normal. Will go ahead and get a CT neck to rule out any dental or neck abscess, given his complaints, put him on broad-spectrum antibiotics for now, and Tylenol p.r.n. pain and fevers. 3. Renal insufficiency. His creatinine is 1.6. Put him on IV fluids, possibly prerenal in occurrence. 4. Type 2 diabetes. Put on sliding scale insulin. Check A1c. 5. High cholesterol. Again, statin and check lipid panel. 6. Hypertension. Blood pressure stable. Continue current blood pressure medicines. 7. Pain symptoms. He is on methadone at home. Continue for now. 8. Gastrointestinal prophylaxis. Ranitidine. 9. Deep venous thrombosis prophylaxis. Consider restarting his Eliquis. Dictated By: Guillermo Amaral MD /tori/patricia /Document#: [id number]
[2017-02-16 23:48] VITALS: BP 143/82; RESP 20
[2017-02-17] VITALS (12 sets, daily range): BP systolic 137–153; BP diastolic 64–79; PULSE 40–64; RESP 17–20
[2017-02-17] MEDS: PIPER-TAZO 2.25 GM (PMX) 50 ML IVPB SCH ×3 (00:08→11:42)
[2017-02-17 01:24] LABS: ADD UMIC NO; UR ASCORBIC ACID NEGATIVE (NEGATIVE); UR BILIRUBIN (Dip) NEGATIVE (NEGATIVE); UR BLOOD (Dip) NEGATIVE (NEGATIVE); UR CLARITY CLEAR (CLEAR); UR COLOR STRAW (YELLOW); UR GLUCOSE (Dip) NEGATIVE (NEGATIVE); UR KETONES (Dip) NEGATIVE (NEGATIVE); UR LEUKOCYTE ESTERASE (Dip) NEGATIVE Leu/ul (NEGATIVE); UR NITRITE (Dip) NEGATIVE (NEGATIVE); UR TOTAL PROTEIN (Dip) NEGATIVE (NEGATIVE); UR UROBILINOGEN (Dip) NEGATIVE (NEGATIVE)
[2017-02-17] MEDS ORDERED: ACCU-CHEK XX SCH (02:00)
[2017-02-17] MEDS: INSULIN ASPART [NOVOLOG] 3 ML PEN SC SCH ×3 (03:51→09:00)
[2017-02-17 07:44] LABS: BASOPHIL # 0.1 10^3/ul (0.0-0.1); BASOPHILS % 0.6 % (0.0-2.0); EOSINOPHILS # 0.1 10^3/ul (0.0-0.5); EOSINOPHILS % 1.6 % (0.0-7.0); HEMATOCRIT 35.8 % (42.0-52.0); HEMOGLOBIN 11.7 g/dl (14.0-18.0); LYMPHOCYTES # 2.2 10^3/ul (0.8-2.9); LYMPHOCYTES % 24.5 % (15.0-51.0); MEAN CORPUSCULAR HGB CONC 32.7 g/dl (32.0-37.0); MEAN CORPUSCULAR VOLUME 88.8 fl (82.0-101.0); MEAN PLATELET VOLUME 10.5 fl (7.4-10.4); MONOCYTE # 0.9 10^3/ul (0.3-0.9); MONOCYTES % 9.7 % (0.0-11.0); NEUTROPHIL # 5.6 10^3/ul (1.6-7.5); NEUTROPHILS % 63.3 % (39.0-77.0); PLATELET COUNT 202 10^3/UL (140-415); RED BLOOD COUNT 4.03 10^6/ul (4.70-6.10); RED CELL DISTRIBUTION WIDTH 13.9 % (11.5-14.5); WHITE BLOOD COUNT 8.8 10^3/ul (4.8-10.8)
[2017-02-17] MEDS: SOD CHLORIDE 0.45% 1,000 ML IV SCH (07:58)
[2017-02-17 08:04] LABS: CREATININE 1.32 mg/dl (0.61-1.24); PHOSPHORUS 3.7 mg/dl (2.5-4.9); POTASSIUM 3.8 mmol/L (3.5-5.1)
[2017-02-17 08:05] LABS: CHOL/HDL RATIO 3.5 RATIO
[2017-02-17 08:31] LABS: THYROID STIMULATING HORMONE 1.73 MIU/L (0.465-4.680)
[2017-02-17 09:15] LABS: BARBITURATES Negative (NEGATIVE); BENZODIAZEPINES Negative (NEGATIVE); CANNABINOIDS Negative (NEGATIVE); COCAINE Negative (NEGATIVE); OPIATES Positive (NEGATIVE)
[2017-02-17] MEDS ORDERED: ATENOLOL 50 MG TAB PO SCH ×2 (12:30)
--- NOTE | 2017-02-17 13:11 | PN ---
Date/Time of Note Date/Time of Note DATE: 02/17/17 TIME: 12:51 Assessment/Plan VTE Prophylaxis VTE Prophylaxis Intervention: other (eliquis) Lines/Catheters IV Catheter Type (from [facility]): Peripheral IV Assessment/Plan Assessment/Plan 66-year-old male with known chronic dural venous sinus thrombosis who presented yesterday to the emergency room with an acute episode of confusion managed as fo llows: 1. Acute encephalopathy, likely TIA: Resolved 2. Chronic dural venous sinus thrombosis: Patient was previously on Eliquis at renal dosing, however based on GFR calculation today this will be increased to 5 mg twice daily 3. Acute on chronic kidney disease improved 4. Chronic kidney disease stage II with estimated GFR of greater than 70 5. Chronic hypertension 6. Asymptomatic sinus bradycardia likely secondary to antihypertensives as patient is on AV edith blockers 7. Dyslipidemia PLAN I have spoken extensively with the patient and his sister at the bedside. At this time outpatient symptoms have completely resolved, and patient is in stable condition. Patient has been compliant with his Eliquis, and was recently reviewed at an outside hospital where they had recommended transition to Coumadin. Patient does not want to be transitioned back to Coumadin. He has been on Coumadin in the past and had bleeding issues with that. I was also able to speak with his neurologist Dr. Garcia on the phone, the plan is on vacation but Dr. Flores is covering. Dr. Ibarra also agrees that patient needs to be remained on Eliquis. He however recommended increasing the dose to 5 mg if his renal function tolerates this. He did not believe patient needed to be started on aspirin as well. This has all been reviewed in detail with the patient. I have also held his atenolol, and will replace with an alternate antihypertensive if necessary. At this time we will await Dr. Flores' in-house review, and if cleared patient to be discharged home in stable condition. Subjective 24 Hr Interval Summary Free Text/Dictation Patient seen and examined. feels much better as compared to yesterday want to be restarted on his prev meds Exam/Review of Systems Vital Signs Vitals Vital Signs Date Time Temp Pulse Resp B/P Pulse Ox O2 Delivery O2 Flow Rate FiO2 02/17/17 12:10 55 02/17/17 11:55 98.4 17 153/79 100 02/17/17 05:00 Room Air Intake and Output 02/16/17 02/16/17 02/17/17 15:00 23:00 07:00 Intake Total 648 ml Output Total 1100 ml Balance -452 ml Exam GENERAL: Patient is sitting up in bed, answering question appropriately, in mild distress, but alert. HEENT: Pupils equal, round, react to light. Extraocular muscles intact. NECK: Supple. No thyromegaly. LUNGS: Clear to auscultation bilaterally. CARDIOVASCULAR: S1, S2 heard. No rubs, gallops. ABDOMEN: Soft, nontender, nondistended. Normal bowel sounds. No rebound or guarding. MUSCULOSKELETAL: No lower extremity bilaterally. NEUROLOGIC: No focal deficits. Results Result Diagram: 02/17/17 0659 02/17/17 0659 Results 24 hrs Laboratory Tests Test 02/16/17 13:20 02/16/17 13:30 02/16/17 21:33 02/16/17 23:03 White Blood Count 9.5 Red Blood Count 4.07 L Hemoglobin 12.0 L Hematocrit 35.5 L Mean Corpuscular Volume 87.2 Mean Corpuscular Hemoglobin 29.5 Mean Corpuscular Hemoglobin Concent 33.8 Red Cell Distribution Width 13.8 Platelet Count 252 Mean Platelet Volume 9.8 Neutrophils % 63.4 Lymphocytes % 26.3 Monocytes % 8.3 Eosinophils % 1.4 Basophils % 0.4 Nucleated Red Blood Cells % 0.0 Neutrophils # 6.0 Lymphocytes # 2.5 Monocytes # 0.8 Eosinophils # 0.1 Basophils # 0.0 Nucleated Red Blood Cells # 0.0 Prothrombin Time 14.6 14.1 Prothrombin Time Ratio 1.1 1.1 INR International Normalized Ratio 1.12 1.08 Activated Partial Thromboplast Time 38.0 H 37.4 H Sodium Level 141 Potassium Level 3.7 Chloride Level 106 Carbon Dioxide Level 23 Anion Gap 16 Blood Urea Nitrogen 18 Creatinine 1.60 H Glucose Level 113 Calcium Level 9.0 Total Bilirubin 0.3 Direct Bilirubin 0.00 Indirect Bilirubin 0.3 Aspartate Amino Transf (AST/SGOT) 20 Alanine Aminotransferase (ALT/SGPT) 28 Alkaline Phosphatase 87 Creatine Kinase 114 Creatine Kinase Index 0.8 Creatinine Kinase MB (Mass) 0.94 Troponin I < 0.012 Total Protein 7.7 Albumin 3.7 Globulin 4.00 H Albumin/Globulin Ratio 0.92 Salicylates Level < 1.0 L Ethyl Alcohol Level < 10.0 Free Thyroxine 0.87 Bedside Glucose 100 Test 02/17/17 00:09 02/17/17 03:38 02/17/17 06:58 02/17/17 06:59 Urine Color STRAW Urine Clarity CLEAR Urine pH 6.0 Urine Specific [place] 1.040 H Urine Ketones NEGATIVE Urine Nitrite NEGATIVE Urine Bilirubin NEGATIVE Urine Urobilinogen NEGATIVE Urine Leukocyte Esterase NEGATIVE Urine Hemoglobin NEGATIVE Urine Glucose NEGATIVE Urine Total Protein NEGATIVE Urine Opiates Screen Positive Urine Barbiturates Negative Urine Amphetamines Screen Negative Urine Benzodiazepines Screen Negative Urine Cocaine Screen Negative Urine Cannabinoids Negative Bedside Glucose 98 Triglycerides Level 186 H Cholesterol Level 104 LDL Cholesterol, Calculated 38 HDL Cholesterol 29 L Cholesterol/HDL Ratio 3.5 Thyroid Stimulating Hormone (TSH) 1.730 White Blood Count 8.8 Red Blood Count 4.03 L Hemoglobin 11.7 L Hematocrit 35.8 L Mean Corpuscular Volume 88.8 Mean Corpuscular Hemoglobin 29.0 Mean Corpuscular Hemoglobin Concent 32.7 Red Cell Distribution Width 13.9 Platelet Count 202 Mean Platelet Volume 10.5 H Neutrophils % 63.3 Lymphocytes % 24.5 Monocytes % 9.7 Eosinophils % 1.6 Basophils % 0.6 Nucleated Red Blood Cells % 0.0 Neutrophils # 5.6 Lymphocytes # 2.2 Monocytes # 0.9 Eosinophils # 0.1 Basophils # 0.1 Nucleated Red Blood Cells # 0.0 Sodium Level 142 Potassium Level 3.8 Chloride Level 107 Carbon Dioxide Level 24 Anion Gap 15 Blood Urea Nitrogen 14 Creatinine 1.32 H Glucose Level 99 Hemoglobin A1c 5.7 Calcium Level 9.0 Phosphorus Level 3.7 Magnesium Level 2.0 Test 02/17/17 09:16 Bedside Glucose 106 Medications Medications Current Medications Ondansetron HCl (Zofran Inj) 4 mg Q6H PRN IV NAUSEA AND/OR VOMITING; Start at 19:00 Acetaminophen (Tylenol Tab) 650 mg Q6H PRN PO PAIN LEVEL 1-3 OR FEVER; Start 02/16/17 at 19:00 Acetaminophen/ Hydrocodone Bitart ([place]emp (5/325)) 1 tab Q6H PRN PO MODERATE PAIN LEVEL 4-6; Start 02/16/17 at 19:00 Morphine Sulfate (morphine) 2 mg Q4H PRN IV SEVERE PAIN LEVEL 7-10; Start at 19:00 Docusate Sodium (Colace) 100 mg Q12H PRN PO CONSTIPATION; Start 02/16/17 at 19 :00 Magnesium Hydroxide (Milk Of Mag) 30 ml DAILY PRN PO CONSTIPATION; Start 02/16 at 19:00 Sodium Biphosphate/ Sodium Phosphate 133 ml 133 ml DAILY PRN ID CONSTIPATION; Start 02/16/17 at 19:00 Sodium Chloride (1/2 NS) 1,000 ml @ 75 mls/hr [id number] IV Last administered on 02/16/17 23:06; Admin Dose 75 MLS/HR; Start 02/16/17 at 18:38 Lorazepam (Ativan) 0.5 mg Q6H PRN IV ANXIETY; Start 02/16/17 at 19:00 Hydralazine HCl (Apresoline) 10 mg Q6H PRN IV ELEVATED BLOOD PRESSURE; Start 02/16/17 at 19:00 Nitroglycerin (Nitroglycerin (Sl Tab) 0.4 Mg) 1 tab Q5M PRN SL ANGINA; Start 02/16/17 at 19:00 Atorvastatin Calcium (Lipitor) 20 mg HS PO Last administered on 02/16/17 23: 05; Admin Dose 20 MG; Start 02/16/17 at 21:00 Meclizine HCl (Antivert) 12.5 mg Q6H PRN PO DIZZINESS; Start 02/16/17 at 19:00 Ranitidine HCl 150 mg 150 mg BID PRN PO EPIGASTRIC PAIN Last administered on 00:53; Admin Dose 150 MG; Start 02/16/17 at 19:00 Piperacillin Sod/ Tazobactam Sod (Zosyn 2.25gm/ 50ml (Pmx)) 50 ml @ 100 mls/hr Q6 IVPB Last administered on 02/17/17 11:42; Admin Dose 100 MLS/HR; Start at 00:00 Insulin Aspart (Novolog Insulin Pen) NOVOLOG *MILD* ALGORI... Q4 SC ; Start at 21:00 Miscellaneous Information 1 ea NOTE XX ; Start 02/16/17 at 21:00 Glucose (Glutose) 15 gm Q15M PRN PO DECREASED GLUCOSE; Start 02/16/17 at 21:00 Glucose (Glutose) 22.5 gm Q15M PRN PO DECREASED GLUCOSE; Start 02/16/17 at 21: 00 Dextrose (D50w Syringe) 25 ml Q15M PRN IV DECREASED GLUCOSE; Start 02/16/17 at 21:00 Dextrose (D50w Syringe) 50 ml Q15M PRN IV DECREASED GLUCOSE; Start 02/16/17 at 21:00 Glucagon (Glucagen) 1 mg Q15M PRN IM DECREASED GLUCOSE; Start 02/16/17 at 21: 00 Glucose (Glutose) 15 gm Q15M PRN BUCCAL DECREASED GLUCOSE; Start 02/16/17 at 21:00 RAVI CEDENO Feb 17, 2017 13:01
[2017-02-17] MEDS: APIXABAN 5 MG TABLET PO SCH ×2 (13:31→21:24)
[2017-02-17] MEDS: DOCUSATE SODIUM 100 MG CAP PO SCH (13:31)
[2017-02-17] MEDS: METHADONE 10 MG TAB PO SCH (13:32)
[2017-02-17] MEDS: NIFEdipine (XL) 60 MG TAB PO SCH (17:39)
[2017-02-17] MEDS ORDERED: ATORVASTATIN 20 MG TAB PO SCH (21:00)
[2017-02-17] MEDS: LEVETIRACETAM 500 MG TAB PO SCH (21:24)
--- NOTE | 2017-02-17 23:58 | RADRPT ---
PROCEDURE: MRA of the head without contrast CLINICAL INDICATION: Headaches and dizziness. TECHNIQUE: 3-D [id number] MRA of the head was performed. 3-D MIP reconstructions were generat ed. The images were obtained on a 3 June MRI scanner COMPARISON: None. FINDINGS: The bilateral ICAs, ACAs, MCAs, and board liner operator are widely patent. The vertebrobasilar system is patent. T he visualized cerebellar arteries are normal. No intracranial aneurysm or vascular malformation is s een. IMPRESSION: 1. No hemodynamically significant stenosis along the major intracranial arteries. 2. No evidence of aneurysm or vascular malformation. RPTAT: HTAR .Yoandy Page MD, MD Date Time Electronically viewed and signed by .Yoandy Page MD, on 02/17/2017 23:58 .R/
[2017-02-18] VITALS (8 sets, daily range): BP systolic 117–151; BP diastolic 57–88; PULSE 54–62; RESP 17–20
--- NOTE | 2017-02-18 06:45 | CONS ---
DATE OF ADMISSION: 02/16/2017 DATE OF CONSULTATION: HISTORY OF PRESENT ILLNESS: The patient is a 66 years old male who was in the car with his sister w hen he went to [employer] to bring some soda. When he came back, he does not know what was in his h and. He placed it on the ground. He was asking his sister about what we do with it. The patient w ith acute confusion status, in which his sister brought him to emergency room. At the emergency [facility], the patient does not know what is the day or the year, or who is the president, and he said about his name, instead of [facility], he said [facility], in which the patient admitted for more evaluation and treatment. MEDICATIONS: His current medications, which include: 1. Lipitor 40 mg. 2. Procardia-XL 60 mg. 3. Eliquis 5 mg. 4. Colace 100 mg. 5. Methadone 45 mg. 6. Zofran 4 mg. 7. Tylenol as needed. 8. [place] 5/325 mg once a day. 9. Morphine sulfate 2 mg. 10. Colace 2 mg. 11. Milk of magnesium as needed. 12. Ativan 0.5 mg every 6 hours. 13. Albuterol inhaler. 14. Nitroglycerin. 15. Meclizine. 16. Zantac. The patient had multiple admissions at [facility] in 2015 and 2016, where the benny ent had a ____ scan as the ER shows no acute intracranial ____ sinus thrombosis involving superior s agittal, right sinus and trochlea. The patient on Eliquis. PHYSICAL EXAMINATION: GENERAL: Today, the patient is alert, awake, and follows simple commands, looks confused, having di fficulty to follow second or third-step commands. Language was decreased. CRANIAL NERVES: Cranial nerve II: Pupils equal on both sides, reactive to light. Cranial nerves I II, IV and : Extraocular muscles intact. No nystagmus. Cranial nerve V: Equal sensation to fac e. Cranial nerve VII: Symmetrical face. Cranial nerve VIII: Decreased hearing bilaterally. Cran ial nerve IX and X: Elevates palate. Cranial nerve XI: Elevates shoulder. Cranial nerve XII: St raight tongue. MOTOR: Decreased right hand water quality assistant 4+/5 sensation. SENSATION: Decreased for gloves and sock area for light touch and temperature. COORDINATION: [id number] test intact. ASSESSMENT AND PLAN: 1. The patient is a 66-year-old status post acute confusion status with the possibility of underlyi ng acute encephalopathy. 2. Possibility of underlying sagittal sinus thrombosis with the patient on Eliquis for that and to continue the same medication. 3. Renal insufficiency. Patient's creatinine 1.6. Follow up the patient's renal function test. G sarah him IV fluids. 4. Diabetes type 2. 5. Peripheral neuropathy, probably secondary to diabetes. 6. Hypercholesterolemia. Follow up the patient with ____. 7. Hypertension. Keep the blood pressures less than 140/90 to avoid any extension of his stroke. 8. Possibility of underlying venous stroke with sinus thrombosis, in which the patient already on E liquis. 9. Keep the patient under deep venous thrombosis prophylaxis. 10. The patient under methadone program and to follow up the patient after the MRI, and we added fo r him MRV sinus thrombosis. Dictated By: DONNY MEDRANO MD NA/NTS Conf#: [id number] DID#: [id number] CC: BHARATI MORGAN MD;*EndCC*
[2017-02-18] MEDS: METHADONE 10 MG TAB PO SCH (08:37)
[2017-02-18] MEDS: DOCUSATE SODIUM 100 MG CAP PO SCH (08:38)
[2017-02-18] MEDS: LEVETIRACETAM 500 MG TAB PO SCH (08:38)
[2017-02-18] MEDS: APIXABAN 5 MG TABLET PO SCH (08:38)
[2017-02-18] MEDS: NIFEdipine (XL) 60 MG TAB PO SCH (08:41)
[2017-02-18 09:48] LABS: BASOPHILS % 0.3 % (0.0-2.0); EOSINOPHILS # 0.2 10^3/ul (0.0-0.5); EOSINOPHILS % 1.7 % (0.0-7.0); HEMATOCRIT 37.7 % (42.0-52.0); HEMOGLOBIN 12.3 g/dl (14.0-18.0); LYMPHOCYTES # 2.1 10^3/ul (0.8-2.9); LYMPHOCYTES % 24.2 % (15.0-51.0); MEAN CORPUSCULAR HEMOGLOBIN 28.8 pg (29.0-33.0); MEAN CORPUSCULAR HGB CONC 32.6 g/dl (32.0-37.0); MEAN CORPUSCULAR VOLUME 88.3 fl (82.0-101.0); MEAN PLATELET VOLUME 10.1 fl (7.4-10.4); MONOCYTE # 0.8 10^3/ul (0.3-0.9); MONOCYTES % 9.3 % (0.0-11.0); NEUTROPHIL # 5.5 10^3/ul (1.6-7.5); NEUTROPHILS % 64.2 % (39.0-77.0); PLATELET COUNT 229 10^3/UL (140-415); RED BLOOD COUNT 4.27 10^6/ul (4.70-6.10); RED CELL DISTRIBUTION WIDTH 13.3 % (11.5-14.5); WHITE BLOOD COUNT 8.6 10^3/ul (4.8-10.8)
[2017-02-18 10:34] LABS: CALCIUM 8.9 mg/dl (8.4-10.2); CREATININE 1.34 mg/dl (0.61-1.24); POTASSIUM 3.7 mmol/L (3.5-5.1)
[2017-02-18] MEDS ORDERED: AMOX1TAB10 PO (11:34)
[2017-02-18] MEDS ORDERED: APIX5TAB PO (11:34)
[2017-02-18] MEDS ORDERED: LEVE-5 PO (11:34)
--- NOTE | 2017-02-18 11:37 | PDOCDIS ---
Discharge Instructions DIAGNOSIS Discharge Diagnosis Transient Ischemic attack Chronic venous sinus thrombosis Chronic sialolithiasis CONDITION Patient Condition: Stable HOME CARE INSTRUCTIONS: Special Diet: Low fat, low chol, 2GM NA ACTIVITY: Activity Restrictions: Slowly Increase Activity Rest between Activity REFERRALS Other Referrals Name, Degree : Nic Thapa MD Specialty :Neurology Office Address : [address] [place] [address] Office Office RAVI CEDENO Feb 18, 2017 11:37
--- NOTE | 2017-02-18 12:28 | DS ---
Date/Time of Note Date/Time of Note DATE: 02/18/17 TIME: 12:25 Discharge Summary Admission/Discharge Info Admit Date/Time Feb 16, 2017 at 18:04 Discharge Date/Time Discharge Diagnosis 66-year-old male with known chronic dural venous sinus thrombosis who presented yesterday to the emergency room with an acute episode of confusion managed as fo llows: 1. Recurrent episode of Acute encephalopathy, likely TIA versus possible seizures: on Keppra 2. Chronic dural venous sinus thrombosis: on eliquis 3. Acute on chronic kidney disease improved 4. Chronic kidney disease stage II with estimated GFR of greater than 70 5. Chronic hypertension 6. Asymptomatic sinus bradycardia likely secondary to antihypertensives as patient is on AV edith blockers: improved, atenolol d/c 7. Dyslipidemia 8. Sialolithiasis and ant neck cellulitis Patient Condition: Stable Hospital Course Mr. Schneider is a 66-year-old male who had presented to emergency room after an acute confusion episode while he was at [facility] and all of a sudden became disoriented to where he was or why he was there, did not know what to do with food, could not remember things that way usual to him like directions. Was seen in the ER and we ended up admitting him for altered mental status. He has a history of venous sinus thrombosis and has been on Eliquis for years. He had an episode of headache and some confusion not too long ago as well when he was seen at a different emergency room in [place] and they had recommended admission but he had chosen to sign out AGAINST MEDICAL ADVICE. Based on these he was seen by neurology, he had CT scan as well as MRI and MRA of the brain. These were negative for any new thrombosis or any new strokes. He was also monitored closely in-house and he does have known chronic kidney disease and because of that was on a renal dosing for his Eliquis. However upon calculation of his current renal status, the patient can tolerate full Eliquis dosing, and as such the dosage of his Eliquis was increased to 5 mg twice daily. He was also started on Keppra for concern that this may be seizure episodes. Also he complained of significant neck pain and a neck lymph node that was tender, and a CT of the neck was consistent with calcifications in his right submandibular gland suggestive of a chronic sialolithiasis and some submental anterior neck swelling suggestive of cellulitis but no abscess. He was therefore treated with antibiotics, recommended to follow-up with his primary care doctor for possible ENT referral for further management. Was also given an information for an appointment with the neurologist next Tuesday. The patient is currently stable condition has been cleared for discharge, discharge instructions have been given to him in detail we have gone over all his lab works and imaging studies. The patient was also noted to have asymptomatic bradycardia upon arrival, this was attributed to the fact that he was on 2 AV edith block as her blood pressure control. His atenolol was held, and his blood pressure remained stable and his heart rate improved. Has he will be discharged only on nifedipine. . Home Meds Active Scripts Amoxicillin/Potassium Clav (Amox-Clav 875-125 mg Tablet) 875-125 mg Tab, 1 TAB PO BID, #20 TAB Prov:PRIETO CEDENOPrincess . 02/18/17 Apixaban* (Eliquis*) 5 Mg Tablet, 5 MG PO BID for 30 Days, #60 TAB 2 Refills Prov:[facility]. 02/18/17 Levetiracetam* (Keppra*) 500 Mg Tablet, 500 MG PO BID for 30 Days, #60 TAB 1 Refill Prov:[facility]. 02/18/17 Meclizine Hcl* (Antivert*) 12.5 Mg Tab, 12.5 MG PO Q6H Y for DIZZINESS, #20 TAB Prov:SHABBIR LANGLEY DO 12/09/16 Ranitidine Hcl* (Zantac*) 150 Mg Tablet, 150 MG PO BID Y for EPIGASTRIC PAIN, # 30 TAB Prov:SHABBIR LANGLEY DO 12/02/16 Reported Medications Docusate Sodium* (Docusate Sodium*) 100 Mg Capsule, 100 MG PO DAILY, #30 CAP 09/17/16 Methadone Hcl* (Methadone*) 5 Mg Tab, 45 MG PO DAILY, TAB PER PT RECEIVES RX AT [facility] CALL [phone] ASK FOR BLESSING 04/22/16 Nifedipine* (Nifedical XL*) 60 Mg/Bottle Tab.osm.24, 60 MG PO DAILY, TAB 05/15/14 Atorvastatin Calcium* (Atorvastatin Calcium*) 20 Mg Tablet, 20 MG PO HS, TAB 05/15/14 Discontinued Reported Medications Atenolol* (Atenolol*) 50 Mg Tablet, 50 MG PO DAILY, #30 TAB 04/22/16 Primary Care Provider Kashif Soto Time spent on discharge: > 30 minutes Pending Labs Laboratory Tests Test 02/18/17 09:00 White Blood Count 8.610^3/ul (4.8-10.8) Red Blood Count 4.2710^6/ul (4.70-6.10) Hemoglobin 12.3g/dl (14.0-18.0) Hematocrit 37.7% (42.0-52.0) Mean Corpuscular Volume 88.3fl (82.0-101.0) Mean Corpuscular Hemoglobin 28.8pg (29.0-33.0) Mean Corpuscular Hemoglobin Concent 32.6g/dl (32.0-37.0) Red Cell Distribution Width 13.3% (11.5-14.5) Platelet Count 33946^3/UL (140-415) Mean Platelet Volume 10.1fl (7.4-10.4) Neutrophils % 64.2% (39.0-77.0) Lymphocytes % 24.2% (15.0-51.0) Monocytes % 9.3% (0.0-11.0) Eosinophils % 1.7% (0.0-7.0) Basophils % 0.3% (0.0-2.0) Nucleated Red Blood Cells % 0.0/100WBC (0.0-0.0) Neutrophils # 5.510^3/ul (1.6-7.5) Lymphocytes # 2.110^3/ul (0.8-2.9) Monocytes # 0.810^3/ul (0.3-0.9) Eosinophils # 0.210^3/ul (0.0-0.5) Basophils # 0.010^3/ul (0.0-0.1) Nucleated Red Blood Cells # 0.010^3/ul (0.0-0.0) Sodium Level 141mmol/L (135-144) Potassium Level 3.7mmol/L (3.5-5.1) Chloride Level 105mmol/L (97-110) Carbon Dioxide Level 24mmol/L (21-31) Anion Gap 16 (8-16) Blood Urea Nitrogen 16mg/dl (7-20) Creatinine 1.34mg/dl (0.61-1.24) Glucose Level 102mg/dl (70-220) Calcium Level 8.9mg/dl (8.4-10.2) RAVI CEDENO Feb 18, 2017 12:28
--- NOTE | 2017-02-19 07:37 | CONS ---
DATE OF ADMISSION: 02/16/2017 DATE OF CONSULTATION: 1. The patient's is 66 years old, status post-acute confusion status with possibility of underlying seizure with the patient on Keppra 500 mg twice a day. 2. Underlying sagittal sinus thrombosis with the patient on Eliquis 500 mg. We will continue the p atient on that. PHYSICAL EXAMINATION: GENERAL: Today, the patient is alert, awake, and oriented and follows simple commands. HEART: Regular rate and rhythm. LUNG: Equal breath sounds. ABDOMEN: Soft, relaxed, nondistended, nontender. CRANIAL NERVES: Cranial nerve II: Pupils equal on both sides, reactive to light. Cranial nerves I II, IV and : Extraocular muscles intact. No nystagmus. Cranial nerve V: Equal sensation to fac e. Cranial nerve VII: Symmetrical face. Cranial nerve VIII: Decreased hearing bilaterally. Cran ial nerves IX and X: Elevates palate. Cranial nerve XI: Elevates shoulders. Cranial nerve XII: Straight tongue. ASSESSMENT AND PLAN: 1. The patient is 66 years old, status post seizure activity. Followup the ___ with outpatient cli romi with electroencephalogram. Start the patient on Keppra 500 mg twice a day. 2. History of sinus thrombosis in which the patient is on Eliquis and continue the patient on that. 3. Underlying acute renal insufficiency. We will followup the patient with renal function tests. 4. History of diabetes. Followup the patient with sliding scale insulin and Accu-Chek. 5. Peripheral neuropathy. Probably secondary to diabetes. Again, thank you. Dictated By: DONNY MICHEL/MARISA Conf#: [id number] DID#: [id number]
== END 2017-02-18 13:40 | disposition home or self-care (01) | DRG 69 ==
LOC: E/R 12:36 → MS4 18:04
PROVIDERS: ADMIT Internal Medicine; ATTEND Internal Medicine
DX: G45.9 Transient cerebral ischemic attack, unspecified (principal); N17.9 Acute kidney failure, unspecified; E11.42 Type 2 diabetes mellitus with diabetic polyneuropathy; R56.9 Unspecified convulsions; I67.6 Nonpyogenic thrombosis of intracranial venous system; L03.221 Cellulitis of neck; I12.9 Hypertensive chronic kidney disease with stage 1 through stage 4 chronic kidney disease, or unspecified chronic kidney disease; N18.2 Chronic kidney disease, stage 2 (mild); R00.1 Bradycardia, unspecified; T46.5X5A Adverse effect of other antihypertensive drugs, initial encounter; K11.5 Sialolithiasis; E78.5 Hyperlipidemia, unspecified; Z72.0 Tobacco use; Z79.891 Long term (current) use of opiate analgesic
CPT/HCPCS: 36415; 70450; 70490; 70544; 71010; 71275; 80048; 80053; 80061; 80306; 80307; 81003; 82550; 82553; 82962; 83036; 83735; 84100; 84439; 84443; 84484; 85025; 85610; 85730; 93005; 93970; 99285; J1815; J2543; J7030; Q9967